=== PATIENT | male | born 1955 | race Caucasian/White ===

== ENCOUNTER 2020-12-18 07:26 | Outpatient (CLI) | payer OTHER ==
[2020-12-18] VITALS (15 sets, daily range): BP systolic 91–109; BP diastolic 64–73
[~2020-12-18] VITALS: Ht 172.7 cm; Wt 90.9 kg
[2020-12-18] MEDS ORDERED: IODIXANOL 320 MG/ML 100 ML VIAL. ONE (07:35)
[2020-12-18] MEDS ORDERED: LIDOCAINE 1% PF 2 ML VIAL. ONE (07:36)
[2020-12-18] MEDS ORDERED: POTA20TA4 PO (07:42)
[2020-12-18] MEDS ORDERED: METF10007 PO (07:42)
[2020-12-18] MEDS ORDERED: METO-239 PO (07:42)
[2020-12-18] MEDS ORDERED: LISI10TA16 PO (07:42)
[2020-12-18] MEDS ORDERED: FURO80TA3 PO (07:42)
[2020-12-18] MEDS ORDERED: ASPI-630 PO (07:42)
[2020-12-18 08:05] LABS: HEMATOCRIT 40.7 % (39.0-53.0); HEMOGLOBIN 13.9 g/dL (13.0-17.5); RED BLOOD COUNT 4.2 x10^6/uL (4.30-5.70); RED CELL DISTRIBUTION WIDTH 13.8 % (11.5-14.5); WHITE BLOOD COUNT 6.7 x10^3/uL (4.0-11.0)
[2020-12-18 08:10] LABS: CREATININE 0.9 mg/dL (0.7-1.3); GFR 85.2; POTASSIUM 4.5 mmol/L (3.5-5.1)
[2020-12-18] MEDS ORDERED: fentaNYL PF VIAL 100 MCG/2 ML VIAL ONE (08:57)
[2020-12-18] MEDS ORDERED: MIDAZOLAM HCL/PF 2 MG/2 ML VIAL. ONE (08:57)
[2020-12-18] MEDS ORDERED: NITROGLYCERIN 200 MCG/2 ML SYRINGE FOR CATH/VASC LAB. ONE (08:58)
[2020-12-18] MEDS ORDERED: VERAPAMIL 5 MG/2 ML VIAL. ONE (08:58)
[2020-12-18] MEDS ORDERED: HEPARIN for IV BOLUS 10,000 UNIT/10 ML VIAL. ONE (08:58)
[2020-12-18] MEDS ORDERED: BIVALIRUDIN 250 MG VIAL. IV ONE ×2 (09:18→09:30)
[2020-12-18] MEDS ORDERED: LIDOCAINE 1% PF 2 ML VIAL. INJ ONE (09:30)
[2020-12-18] MEDS ORDERED: MIDAZOLAM HCL/PF 2 MG/2 ML VIAL. IV ONE (09:30)
[2020-12-18] MEDS ORDERED: VERAPAMIL 5 MG/2 ML VIAL. IART ONE (09:30)
[2020-12-18] MEDS ORDERED: NITROGLYCERIN 200 MCG/2 ML SYRINGE FOR CATH/VASC LAB. IART ONE (09:30)
[2020-12-18] MEDS ORDERED: HEPARIN for IV BOLUS 10,000 UNIT/10 ML VIAL. IART ONE (09:30)
[2020-12-18] MEDS ORDERED: IODIXANOL 320 MG/ML 100 ML VIAL. IART ONE (09:30)
[2020-12-18] MEDS ORDERED: ASPIRIN 325 MG TABLET ONE (09:41)
[2020-12-18] MEDS ORDERED: CLOPIDOGREL BISULFATE 75 MG TABLET ONE (09:41)
[2020-12-18] MEDS ORDERED: IV NORMAL SALINE 500ML BAG 250 ML IV ONE (09:45)
[2020-12-18] MEDS ORDERED: NITROGLYCERIN 200 MCG/2 ML SYRINGE FOR CATH/VASC LAB. ICAR ONE (09:45)
[2020-12-18] MEDS ORDERED: ASPIRIN 325 MG TABLET PO ONE (09:45)
[2020-12-18] MEDS ORDERED: CLOPIDOGREL BISULFATE 75 MG TABLET PO ONE (09:45)
--- NOTE | 2020-12-18 09:46 | PDOC ---
MODERATE SEDATION ASSESSMENT RISKS/ALTERNATIVES Risks/Alternatives Risks and alternatives of this type of sedation and procedure discussed with: RISK/ALTERNATIVES: Patient H & P ON CHART H & P H & P on chart and reviewed for co-morbid conditions and appropriate labs. H&P ON CHART: Yes STATUS PREG STATUS ASSESSED: N/A MEDS/ALLERGIES REVIEWED Meds/Allergies Reviewed Medications and Allergies including time and route of recently administered narcotics and sedatives. MEDS/ALLERGIES REVIEWED: Yes ASA RATING ASA RATING: III AIRWAY ASSESSMENT Airway Assessment Airway patency, oral function limitations, presence of caps, crowns, dentures, partials, and ability to extend neck assessed. AIRWAY ASSESSMENT: Yes MALLAMPATI SCORE MALLAMPATI SCORE: II PRE-SEDATION ASSESSMENT PRE-SEDATION ASSESSMENT: Yes JAN HULL MD Dec 18, 2020 09:46
[2020-12-18] MEDS ORDERED: NITROGLYCERIN SUBLINGUAL 0.4 MG BOTTLE OF 25. SL PRN (10:00)
[2020-12-18] MEDS ORDERED: IV 1/2 NORMAL SALINE 1,000 ML IV SCH (10:00)
[2020-12-18] MEDS ORDERED: ACETAMINOPHEN 325 MG TABLET. PO PRN (10:00)
[2020-12-18] MEDS ORDERED: ASPI325T8 PO (11:25)
[2020-12-18] MEDS ORDERED: ATOR40TA59 PO (11:25)
[2020-12-18] MEDS ORDERED: CLOP75TA PO (11:25)
[2020-12-18] MEDS ORDERED: ACET325T9 PO (11:25)
--- NOTE | 2020-12-18 13:13 | NUR ---
Discharge Note: BREANNE DANIEL Discharge instructions and discharge home medications reviewed with Patient and a copy given. All questions have been answered and understanding verbalized. The following instructions and handouts were given: radial site care and adult moderate sedation Discontinued lines and drains: Peripheral IV intact. Patient discharged to Home or Self Care withSpousevia Wheelchair
[2020-12-18] MEDS ORDERED: ATORVASTATIN CALCIUM 20 MG TABLET PO SCH (21:00)
[2020-12-19] MEDS ORDERED: CLOPIDOGREL BISULFATE 75 MG TABLET PO SCH (08:00)
[2020-12-19] MEDS ORDERED: ASPIRIN ENTERIC COATED 325 MG TABLET.DR. PO SCH (08:00)
--- NOTE | 2020-12-22 10:19 | CARD ---
Technologist: Janet Quintanilla, RT(R) Nurse: Joanne Cox RN Procedure(s) performed: 1. Left heart catheterization, selective coronary angiography via right transradial approach 2. Successful PCI/drug-eluting stent placement to the obtuse marginal branch of left circumflex artery Sedation Time: 43 Minutes Dose: 101 Gycm2 Contrast: 142 mL Visipaque 320 Fluoro Time: 9.2 Minutes INDICATION The indication(s) include : 65-year-old male who recently presented with acute on chronic systolic heart failure was found to have severe left ventricle systolic dysfunction with EF 20 to 25% on 2D echocardiogram. He presented today for cardiac catheterization to rule out ischemic etiology.. [facility] Clinical Frailty Scale [facility] Clinical Frailty Scale: Mildly Frail Heart Failure Heart Failure: Yes If Yes, Newly Diagnosed: No If Yes, HF Type: Systolic If Yes, NYHA Class: Class II CASE TECHNIQUE IV conscious sedation was used throughout procedure with appropriate monitoring and was performed in the presence of a registered nurse who was an independent trained observer other than the physician performing the procedure. During this case, Fluoroscopy and low osmolar contrast were used for imaging. Specimen(s) Removed: No Estimated Blood loss: 15 cc's. PROCEDURE NARRATIVE After explaining the risks, benefits and alternative options, informed consent was obtained from patient. Patient was brought to the cardiac Facilities Planner and right wrist was prepped and draped in the usual fashion after confirming a positive modified Lance's test. Arterial access was obtained in the right radial artery and a 6 Turkmen sheath was inserted. 6 Turkmen Cuong catheter was used to perform selective angiography of the left and right coronary arteries. 6 Turkmen pigtail catheter was used to obtain LVEDP and transaortic gradients. Left ventriculography was not performed secondary to elevated EDP. The following findings were noted: FINDINGS 1. Hemodynamics: Elevated left ventricular end-diastolic pressure of 36 mmHg consistent with acute on chronic systolic heart failure. Pullback gradient across the aortic valve of 34 mmHg consistent with moderate aortic stenosis. 2. Coronary angiography: a. The left main coronary artery arose from the left sinus of Valsalva, gave rise to the left anterior descending, ramus intermedius and left circumflex arteries and did not show any significant stenosis. b. The left anterior descending artery did not show any significant stenosis. c. The ramus intermedius artery did not show any significant stenosis. d. The left circumflex artery showed 90% stenosis involving the proximal segment of the second obtuse marginal branch. e. The right coronary artery was a dominant vessel arising from the right sinus of Valsalva that did not show any significant stenosis. INTERVENTION The left main coronary artery was engaged with a 6 Turkmen XB 3.5 guide catheter. The stenosis in the proximal segment of the second obtuse marginal branch was crossed with a 0.014 inch [employer] guidewire. This was predilated with a 2.5 x 12 mm [employer] Emerge balloon following which this was successfully treated with a 2.5 x 12 mm [employer] Promus Elite drug- eluting stent. Follow-up angiography showed resolution of the stenosis to 0% with ELDA-3 distal flow. Patient tolerated procedure well. Hemostasis was achieved using TR band. There were no immediate complications. ELDA Flow ELDA Flow (Pre-Intervention): ELDA-2 ELDA Flow (Post-Intervention): ELDA-3 Conclusion 1. Single-vessel coronary artery disease 2. Successful PCI/drug-eluting stent placement to the second obtuse marginal branch of left circumflex artery 3. Elevated left ventricular end-diastolic pressure consistent with acute on chronic systolic heart failure 4. Moderate aortic stenosis Recommendations 1. Aspirin 325 mg daily for 1 month followed by 81 mg daily. 2. Plavix 75 mg daily 3. Cardiovascular risk factor modification 4. Optimization of medical therapy for acute on chronic systolic heart failure/cardiomyopathy and repeat 2D echo in 3 months to evaluate need for AICD implantation Signed by : Ryan Funk, Electronically Approved : 12/18/2020 10:04:16 -- [email or web address]
== END 2020-12-18 13:16 | disposition home or self-care (01) ==
LOC: CCL 07:26
PROVIDERS: ATTEND Internal Medicine Cardiovascular Disease
DX: I11.0 Hypertensive heart disease with heart failure (principal); I50.23 Acute on chronic systolic (congestive) heart failure; I42.9 Cardiomyopathy, unspecified; I25.10 Atherosclerotic heart disease of native coronary artery without angina pectoris; E11.9 Type 2 diabetes mellitus without complications; F17.210 Nicotine dependence, cigarettes, uncomplicated; Z79.82 Long term (current) use of aspirin; Z79.84 Long term (current) use of oral hypoglycemic drugs; Z79.899 Other long term (current) drug therapy; Z98.890 Other specified postprocedural states; Z72.89 Other problems related to lifestyle
CPT/HCPCS: 36415; 80048; 85027; 92928; 93458; 99152; 99153; C1725; C1769; C1874; C1887; C1894; J0583; J1644; J2250; J3490; J7040; Q9967

== ENCOUNTER 2021-08-20 09:08 | Inpatient (IN) | payer OTHER ==
[~2021-08-20] VITALS: Ht 172.7 cm; Wt 83.0 kg
[~2021-08-20 09:08] MED LIST: ACET325T9 PO; ASPI-630 PO; ASPI325T8 PO; ATOR40TA59 PO; CLOP75TA PO; FURO80TA3 PO; LISI10TA16 PO; METF10007 PO; METO-239 PO; POTA-121 PO
--- NOTE | 2021-08-20 09:28 | PHYS DOC ---
Past Medical History Past Medical History: CHF, Diabetes-Type II, Hypertension Past Surgical History: No Surgical History Smoking Status: Current Every Day Smoker Alcohol Use: None Drug Use: None General Adult EDM: Chief Complaint: FATIGUE HPI: HPI: Patient is a 65 year old Male who presents to the ED from Dr. Caceres's office c/o fatigue worsening over the past 3 days. Pt went to his PCP this morning and was sent down here due to hypotension and jaundice. Pt states over the last several months he had increasing fatigue and decreased appetite. He states that he has lost 30 pounds in the last month. Pt also reports constipation. He denies n/v/d, fever, or chills. Denies trauma. Review of Systems: Review of Systems: Constitutional: Denies fever or chills; reports fatigue and weight loss Eyes: Denies redness or eye pain HENT: Denies nasal congestion or sore throat Respiratory: Denies cough or shortness of breath Cardiovascular: Denies chest pain or palpitations GI: Denies abdominal pain, nausea, or vomiting; reports constipation : Denies dysuria or hematuria Musculoskeletal: Denies back pain or joint pain Integument: Denies rash or skin lesions Neurologic: Denies headache, focal weakness or sensory changes Complete systems were reviewed and found to be within normal limits, except as documented in this note. Heart Score: C/O Chest Pain: N/A Allergies: Allergies: Allergies Coded Allergies Type Severity Reaction Last Updated Verified No Known Drug Allergies 12/18/20 No Physical Exam: PE: Constitutional: NAD, ill-appearing HENT: Normocephalic, atraumatic Eyes: PERRL, EOMI, scleral icterus, no discharge Neck: Normal range of motion, no tenderness, supple Lungs & Thorax: No respiratory distress, equal chest rise and fall Abdomen: Soft, no tenderness, distended, with possible fluid wave Skin: Jaundice, warm, dry, no erythema, no rash Back: No tenderness, no CVA tenderness Extremities: No tenderness, ROM intact, no edema Neurologic: Alert and oriented X 3, normal motor function, normal sensory function, no focal deficits noted Psychologic: Affect normal, judgment normal EKG: EKG: @0921 NSR at 83bpm, NO ST elevation, QRS 120ms, QT/QTc 442/526ms Radiology/Procedures: Radiology/Procedures: PROCEDURE: CT CHEST ABDOMEN PELVIS WO CT CHEST_ABDOMEN_ AND PELVIS WITHOUT CONTRAST History: Dyspnea with exertion, jaundice. Comparison: None. Technique: Noncontrast CT of the chest, abdomen and pelvis. Findings: Moderate right, small left pleural effusion. Mild emphysematous change. Bilateral lower lobe groundglass opacities likely representing compressive atelectasis however superimposed infection is not excluded. Central airways are patent. There are heavy aortic valvular calcifications and moderate coronary artery calcifications. Mild calcification of the aortic arch. No aortic aneurysm. Pulmonary arteries are within normal limits. No mediastinal or hilar adenopathy. The thyroid and esophagus are unremarkable. The liver is unremarkable. There are punctate calcifications of the anterior dependent gallbladder wall, likely adherent stones. No biliary ductal dilatation. Mild fatty atrophy of the pancreas. Calcified granulomas spleen. The adrenal glands are unremarkable. No nephrolithiasis or hydronephrosis. The stomach is decompressed. The small bowel is unremarkable. Normal appendix. No focal colonic wall thickening or pericolonic inflammatory changes. The bladder is decompressed with diffuse wall thickening. Enlarged prostate gland. There is mild ascites with perihepatic, perisplenic and fluid in the paracolic gutters and pelvis. Atherosclerotic calcification of the aorta and iliac arteries. No abdominal pelvic adenopathy. Mild anasarca. Fat-containing umbilical hernia. Flowing osteophytes in the thoracic spine. Mild lumbar spine degenerative changes. Impression: 1. Moderate right and small left pleural effusion. Mild intra-abdominal ascites and mild anasarca. 2. Groundglass opacities in the lower lobes adjacent to pleural effusions likely representing compressive atelectasis. Superimposed infection or edema are not excluded. 3. Heavy calcifications of the aortic valve. Consider echo for further evaluation. 4. Enlarged prostate gland. Exam. Diffuse bladder wall thickening likely due to underdistention. ------ Exposure: One or more of the following individualized dose reduction techniques were utilized for this examination: 1. Automated exposure control 2. Adjustment of the mA and/or kV according to patient size 3. Use of iterative reconstruction technique. Electronically signed by: Giuliano Thornton MD (08/20/2021 11:29 AM) [id number] Course & Med Decision Making: Course & Med Decision Making Pertinent Labs and Imaging studies reviewed. (See chart for details) Pt is a 65 year old male who presents from Dr. Caceres's office with fatigue and weight loss. Patient also noted to have jaundice with concerns for malignancy and/or liver failure. Patient given IVF that were stopped when BNP was received. Pt received ~400mls Labs obtained and posted to chart. LFTs elevated including Tbili. Lipase WNL. Lactic acidosis noted. Hypokalemia addressed. CT chest/abd/pelvis without acute process. Patient continued to have hypotension. Central lined therefore placed. Patient requiring admission for further evaluation and treatment. Discussed with (hospitalist) who is in agreement with admission. Discussed findings and plan with patient, who acknowledges understanding and agreement. Dragon Disclaimer: Dragon Disclaimer: This electronic medical record was generated, in whole or in part, using a voice recognition dictation system. Departure Departure Impression: Primary Impression: Hyperbilirubinemia Additional Impressions: Acute renal failure Qualified Codes: N17.9 - Acute kidney failure, unspecified Hypokalemia Lactic acidosis Hypotension Qualified Codes: I95.9 - Hypotension, unspecified Disposition: ADMITTED INPATIENT Admitting Physician: OVI RobertSutton) Condition: GUARDED Referrals: HERNÁN CACERES MD (PCP) Central Line Central Line : Central Line Lumen: triple Central Line Procedure: sterile drapes applied, sterile dressing applied Central Line Postion: internal jugular (R) Anesthesia: Lidocaine cc's of anesthesia: 3 Complications: none Central Line Post Position: sutured, good blood return, position confirmed w/ CXR Progress Written consent obtained. Time out performed. Hand hygiene utilized. Sterile attire donned. Wound cleaned with ChloraPrep. Sterile drape applied. Bedside ultrasound utilized with visualization of hypoechoic, compressible, non- pulsatile structure consistent for right internal jugular vein. Anesthesia obtained via a 25-gauge hypodermic needle with (3) mL's of lidocaine 1% without epinephrine. Triple lumen catheter placed via Seldinger technique. Catheter sutures in placed. Patient tolerated procedure well and without difficulty. Sterile dressing placed. Critical Care Time Critical care time was 30 minutes which includes time at bedside, spent in discussion of patient's care with specialists and/or family members, with interpretation of laboratory and/or radiological studies and is exclusive of procedures. RAYNA BROWNING DO Aug 20, 2021 09:28
[2021-08-20 09:58] LABS: BASO % 0 % (0-3); EOS % 0 % (0-3); HEMATOCRIT 37.8 % (39.0-53.0); HEMOGLOBIN 12.9 g/dL (13.0-17.5); LYMPH # 0.7 x10^3/uL (1.0-4.8); LYMPH % 12 % (24-48); MEAN CORPUSCULAR HEMOGLOBIN 34 pg (25-35); MEAN CORPUSCULAR HGB CONC 34 g/dL (31-37); MEAN CORPUSCULAR VOLUME 99 fL (79-100); MONO # 0.5 x10^3/uL (0.0-1.1); MONO % 8 % (0-9); NEUT # 5.1 x10^3/uL (1.8-7.7); NEUT % 80 % (31-73); PLATELET COUNT 134 x10^3/uL (140-400); RED BLOOD COUNT 3.81 x10^6/uL (4.30-5.70); RED CELL DISTRIBUTION WIDTH 16.9 % (11.5-14.5); WHITE BLOOD COUNT 6.4 x10^3/uL (4.0-11.0)
[2021-08-20] MEDS ORDERED: IV NORMAL SALINE 1000ML BAG 1,000 ML IV ONE (10:00)
[2021-08-20 10:09] LABS: PROTHROMBIN TIME PATIENT 17.8 SEC (11.7-14.0)
[2021-08-20] MEDS ORDERED: IOHEXOL 350 MG/ML 100 ML VIAL. IV ONE (10:15)
[2021-08-20 10:22] LABS: ALBUMIN 3.4 g/dL (3.4-5.0); CALCIUM 8.6 mg/dL (8.5-10.1); CREATININE 2.4 mg/dL (0.7-1.3); GFR 27.5; TOTAL BILIRUBIN 6.1 mg/dL (0.2-1.0); TOTAL PROTEIN 6.7 g/dL (6.4-8.2)
[2021-08-20 10:29] LABS: POTASSIUM 2.6 mmol/L (3.5-5.1)
[2021-08-20] MEDS ORDERED: CONTRAST GIVEN. MC PRN (10:30)
[2021-08-20] MEDS ORDERED: POTASSIUM CHLORIDE 20 MEQ TABLET.ER. PO ONE (10:45)
[2021-08-20 10:46] LABS: INFLUENZA A PATIENT NEGATIVE (NEGATIVE); INFLUENZA B PATIENT NEGATIVE (NEGATIVE)
--- NOTE | 2021-08-20 11:31 | RAD ---
CT CHEST_ABDOMEN_ AND PELVIS WITHOUT CONTRAST History: Dyspnea with exertion, jaundice. Comparison: None. Technique: Noncontrast CT of the chest, abdomen and pelvis. Findings: Moderate right, small left pleural effusion. Mild emphysematous change. Bilateral lower lobe groundgl ass opacities likely representing compressive atelectasis however superimposed infection is not exclu ded. Central airways are patent. There are heavy aortic valvular calcifications and moderate coronary artery calcifications. Mild calc ification of the aortic arch. No aortic aneurysm. Pulmonary arteries are within normal limits. No med iastinal or hilar adenopathy. The thyroid and esophagus are unremarkable. The liver is unremarkable. There are punctate calcifications of the anterior dependent gallbladder wa ll, likely adherent stones. No biliary ductal dilatation. Mild fatty atrophy of the pancreas. Calcifi ed granulomas spleen. The adrenal glands are unremarkable. No nephrolithiasis or hydronephrosis. The stomach is decompressed. The small bowel is unremarkable. Normal appendix. No focal colonic wall thickening or pericolonic inflammatory changes. The bladder is decompressed with diffuse wall thickening. Enlarged prostate gland. There is mild ascites with perihepatic, perisplenic and fluid in the paracolic gutters and pelvis. At herosclerotic calcification of the aorta and iliac arteries. No abdominal pelvic adenopathy. Mild anasarca. Fat-containing umbilical hernia. Flowing osteophytes in the thoracic spine. Mild lumba r spine degenerative changes. Impression: 1. Moderate right and small left pleural effusion. Mild intra-abdominal ascites and mild anasarca. 2. Groundglass opacities in the lower lobes adjacent to pleural effusions likely representing compre ssive atelectasis. Superimposed infection or edema are not excluded. 3. Heavy calcifications of the aortic valve. Consider echo for further evaluation. 4. Enlarged prostate gland. Exam. Diffuse bladder wall thickening likely due to underdistention. ------ Exposure: One or more of the following individualized dose reduction techniques were utilized for thi s examination: 1. Automated exposure control 2. Adjustment of the mA and/or kV according to patient size 3. Use of iterative reconstruction technique. Electronically signed by: Giuliano Thornton MD (08/20/2021 11:29 AM) [id number]
[2021-08-20] MEDS ORDERED: ALBUMIN HUMAN 5% 500 ML IV ONE (13:15)
[2021-08-20] MEDS ORDERED: fentaNYL PF VIAL 100 MCG/2 ML VIAL IVP PRN (13:30)
[2021-08-20] MEDS ORDERED: ONDANSETRON PF 4 MG/2 ML VIAL. IVP PRN ×2 (13:30→21:15)
[2021-08-20] MEDS ORDERED: DEXTROSE 50% 25 GM / 50ML DISP.SYRIN. IV PRN ×2 (13:45→20:45)
[2021-08-20] MEDS ORDERED: IV DEXTROSE 5% 250 ML BAG. IV PRN ×2 (13:45→20:45)
--- NOTE | 2021-08-20 14:13 | PDOC2 ---
GI CONSULT Date of Service: DATE: 08/20/21 TIME: 13:45 Reason For Consult: hyperbilirubinemia HPI: HPI: 65 y/o male seen in ER, previously d/w ER physician. Ill x 1 month with "all of it" - shortness of breath, weakness, swelling, decreased appetite, and yellowing of skin. Denies reflux/heartburn, n/v, abdominal pain, diarrhea, hematochezia, or melena. Has lost some weight. can't really say if he has trouble swallowing - he'll have to think about it but maybe sometimes. Typically no issues w/ diarrhea or constipation but has been "slow" recently - gave him something OTC that helped. No previous EGD or colonoscopy. Denies GB, liver, pancreas, and PUD history. No h/o Hepatitis. Used to drink heavily but quit 8-9 months ago. No NSAIDs. H/o CAD w/ stent (11/2020) - summary list includes ASA and Plavix and he thinks he takes these. present to supplement some history but says she is a heart patient and has had strokes so she remembers some things but not others. "I know he takes a lot of pills." The patient says he's going to roll out of here like a truck if the beeping doesn't stop. PMH: PMH: CAD w/ stent, CHF, HTN, , DM FH: Family History: No pertinent hx Social History: Smoke: <1 pack per day ALCOHOL: other (heavy in past, sober 8-9 months) Drugs: None ROS: GEN: Denies fevers, chills, sweats HEENT: Denies blurred vision, sore throat CV: Denies chest pain RESP: +SOA +cough GI: Per HPI : Denies hematuria, dysuria ENDO: +weight loss NEURO: Denies confusion, dizziness MSK: +weakness SKIN: +jaundice Vitals: Vitals: Vital Signs Date Time Temp Pulse Resp B/P (MAP) Pulse Ox O2 Delivery O2 Flow Rate FiO2 08/20/21 13:34 86 16 08/20/21 13:05 99 08/20/21 09:23 97.4 96/54 (68) Room Air 97.4 Labs: Labs: Laboratory Tests Test 08/20/21 09:20 08/20/21 10:24 White Blood Count 6.4 x10^3/uL (4.0-11.0) Red Blood Count 3.81 x10^6/uL (4.30-5.70) Hemoglobin 12.9 g/dL (13.0-17.5) Hematocrit 37.8 % (39.0-53.0) Mean Corpuscular Volume 99 fL (79-100) Mean Corpuscular Hemoglobin 34 pg (25-35) Mean Corpuscular Hemoglobin Concent 34 g/dL (31-37) Red Cell Distribution Width 16.9 % (11.5-14.5) Platelet Count 134 x10^3/uL (140-400) Neutrophils (%) (Auto) 80 % (31-73) Lymphocytes (%) (Auto) 12 % (24-48) Monocytes (%) (Auto) 8 % (0-9) Eosinophils (%) (Auto) 0 % (0-3) Basophils (%) (Auto) 0 % (0-3) Neutrophils # (Auto) 5.1 x10^3/uL (1.8-7.7) Lymphocytes # (Auto) 0.7 x10^3/uL (1.0-4.8) Monocytes # (Auto) 0.5 x10^3/uL (0.0-1.1) Eosinophils # (Auto) 0.0 x10^3/uL (0.0-0.7) Basophils # (Auto) 0.0 x10^3/uL (0.0-0.2) Prothrombin Time 17.8 SEC (11.7-14.0) Prothromb Time International Ratio 1.5 (0.8-1.1) Activated Partial Thromboplast Time 30 SEC (24-38) Sodium Level 129 mmol/L (136-145) Potassium Level 2.6 mmol/L (3.5-5.1) Chloride Level 84 mmol/L (98-107) Carbon Dioxide Level 30 mmol/L (21-32) Anion Gap 15 (6-14) Blood Urea Nitrogen 61 mg/dL (8-26) Creatinine 2.4 mg/dL (0.7-1.3) Estimated GFR (Cockcroft-Gault) 27.5 BUN/Creatinine Ratio 25 (6-20) Glucose Level 180 mg/dL (70-99) Lactic Acid Level 5.4 mmol/L (0.4-2.0) Calcium Level 8.6 mg/dL (8.5-10.1) Magnesium Level 2.3 mg/dL (1.8-2.4) Total Bilirubin 6.1 mg/dL (0.2-1.0) Aspartate Amino Transf (AST/SGOT) 380 U/L (15-37) Alanine Aminotransferase (ALT/SGPT) 588 U/L (16-63) Alkaline Phosphatase 119 U/L (46-116) Ammonia 17 mcmol/L (11-34) Creatine Kinase 357 U/L (39-308) Creatine Kinase MB (Mass) 2.0 ng/mL (0.0-3.6) Creatine Kinase MB Relative Index 0.6 % (0-4) Troponin I High Sensitivity 76 ng/L (4-75) EP-Lfn-M-Type Natriuretic Peptide 05785 pg/mL (0-124) Total Protein 6.7 g/dL (6.4-8.2) Albumin 3.4 g/dL (3.4-5.0) Albumin/Globulin Ratio 1.0 (1.0-1.7) Lipase 109 U/L (73-393) Ethyl Alcohol Level < 10 mg/dL (0-10) Influenza Type A Antigen Negative (NEGATIVE) Influenza Type B Antigen Negative (NEGATIVE) SARS-CoV-2 Antigen (Rapid) Negative (NEGATIVE) Allergies: Coded Allergies: No Known Drug Allergies (Unverified , 08/20/21) Medications: Current Medications Medications (Trade) Dose Ordered Sig/Laron Route PRN Reason Start Time Stop Time Status Last Admin Dose Admin Sodium Chloride 1,000 ml @ 1,000 mls/hr 1X ONCE IV 08/20/21 10:00 08/20/21 10:59 DC 08/20/21 10:00 Info (CONTRAST GIVEN -- Rx MONITORING) 1 each PRN DAILY PRN MC SEE COMMENTS 08/20/21 10:30 08/22/21 10:29 08/20/21 11:21 Potassium Chloride (Klor-Con) 40 meq 1X ONCE PO 08/20/21 10:45 08/20/21 10:46 DC 08/20/21 11:20 Imaging: Imaging: C/A/P CT 08/20 Findings: Moderate right, small left pleural effusion. Mild emphysematous change. Bilateral lower lobe groundglass opacities likely representing compressive atelectasis however superimposed infection is not excluded. Central airways are patent. There are heavy aortic valvular calcifications and moderate coronary artery calcifications. Mild calcification of the aortic arch. No aortic aneurysm. Pulmonary arteries are within normal limits. No mediastinal or hilar adenopathy. The thyroid and esophagus are unremarkable. The liver is unremarkable. There are punctate calcifications of the anterior dependent gallbladder wall, likely adherent stones. No biliary ductal dilatation. Mild fatty atrophy of the pancreas. Calcified granulomas spleen. The adrenal glands are unremarkable. No nephrolithiasis or hydronephrosis. The stomach is decompressed. The small bowel is unremarkable. Normal appendix. No focal colonic wall thickening or pericolonic inflammatory changes. The bladder is decompressed with diffuse wall thickening. Enlarged prostate gland. There is mild ascites with perihepatic, perisplenic and fluid in the paracolic gutters and pelvis. Atherosclerotic calcification of the aorta and iliac arteries. No abdominal pelvic adenopathy. Mild anasarca. Fat-containing umbilical hernia. Flowing osteophytes in the thoracic spine. Mild lumbar spine degenerative changes. Impression: 1. Moderate right and small left pleural effusion. Mild intra-abdominal ascites and mild anasarca. 2. Groundglass opacities in the lower lobes adjacent to pleural effusions likely representing compressive atelectasis. Superimposed infection or edema are not excluded. 3. Heavy calcifications of the aortic valve. Consider echo for further evaluation. 4. Enlarged prostate gland. Exam. Diffuse bladder wall thickening likely due to underdistention. PE: GEN: NAD HEENT: Atraumatic, PERRL LUNGS: diminished anteriorly HEART: RR +murm ABD: NABS, RUQ discomfort ("just tickles"), umb hernia EXTREMITY: BLE pitting edema SKIN: +tattoos +jaundice NEURO/PSYCH: A & O 3, not overly forthcoming A/P: A/P: Weakness, SOA, abdominal distention, LE swelling Thrombocytopenia, coagulopathy, abnormal LFTs - unremarkable liver on CT w/ mild ascites and anasarca CHF, hyponatremia, hypokalemia, JIMY, mildly elevated CK, lactic acidosis CRC screen - none ?cholelithiasis - possibly on CT Rapid COVID negative CAD on Plavix and ASA H/o heavy alcohol use - none for 8-9 months -- ?mostly related to heart failure - does have alcohol history. Address cardiac and renal issues. Check abd US/doppler for further liver eval/PV check. Check Hepatitis panel for completeness considering tattoos. GILBERT UNGER Aug 20, 2021 14:12
--- NOTE | 2021-08-20 16:18 | RAD ---
US ABDOMEN LIMITED, US LIMITED ABDOMINAL DOPPLER History: Jaundice. Evaluate liver and portal vein. Comparison: CT abdomen pelvis 08/20/2021. Technique: Sonographic examination of the right upper quadrant of the abdomen. Findings: Pancreas: Poorly visualized due to overlying bowel gas. Liver: The liver measures 18.5 cm. Liver echotexture is minimally increased in echogenicity. No foc al hepatic lesions. Portal vein Doppler: There is hepatopedal flow in the main portal vein which measures 1.1 cm diameter , peak systolic velocity 12 cm/s the left and right portal vein are patent with hepatopedal flow. Gallbladder: Dependently layering material in the gallbladder consistent with sludge. No wall thicken ing or pericholecystic fluid.. Bile ducts: The common duct measures 4 mm. Right kidney: 11.7 cm length. No mass or hydronephrosis. Aorta/IVC: Visualized portions are unremarkable. Other: Moderate right pleural effusion and small perihepatic ascites.. Impression: 1. Mildly increased hepatic echogenicity can be seen in mild steatosis. Patent hepatopedal flow with in the portal veins. 2. Gallbladder sludge without evidence for acute cholecystitis. No biliary ductal dilatation. 3. Moderate right pleural effusion and small perihepatic ascites. Electronically signed by: Giuliano Thornton MD (08/20/2021 4:15 PM) [id number]
--- NOTE | 2021-08-20 16:36 | RAD ---
XR CHEST 1V Clinical History: Reason: Line placement / Spl. Instructions: / History: Technique: AP view of the chest was obtained at 08/20/2021 4:24 PM. Comparison: None. Findings: The heart is normal in size. The pulmonary vessels appear somewhat cephalized and congested and there is reticular opacities throughout the lungs. The pleural margins are clear. Right jugular line has t ip directed downward in the high SVC. Impression: 1. Right jugular line adequately positioned. No pneumothorax. 2. Interstitial infiltrates could be CHF or atypical pneumonia. Electronically signed by: Shiv Marquez III, MD (08/20/2021 4:33 PM) [facility]
[2021-08-20] MEDS ORDERED: INSULIN LISPRO 300 UNITS/3 ML VIAL. SQ SCH (17:00)
[2021-08-20 17:37] VITALS: BP 91/49
[2021-08-20 19:00] VITALS: BP 93/58
[2021-08-20 20:00] VITALS: BP 85/59
--- NOTE | 2021-08-20 20:36 | PDOC1 ---
History and Physical Date of Admission Date of Admission DATE: 08/20/21 TIME: 20:16 Identification/Chief Complaint Chief Complaint Abnormal labs Source Source: Patient History of Present Illness History of Present Illness Patient is a 65-year-old male with past medical history systolic CHF, presents to the ED at the behest of his PCP due to abnormal lab work. Patient is not much of a historian. Patient states he has been feeling some weakness for the past 2 days. He notes associated increased abdominal distention, yellowing of his skin, and swelling of his legs. He has not been seen by a physician for quite some time, we do not have any much in the way of prior records at this facility. Labs on admission show hemoglobin 12.9, hematocrit 37.8, platelets 134, INR 1.5, sodium 129, potassium 2.6, BUN 61, creatinine 2.5, CBG 180, T bili 6.1, AST 380, ALT 388, alkaline phosphatase 119, troponin 76, BNP 23,307. Patient does admit to some inconsistent use of his home Lasix. CT chest/abdomen/pelvis showed moderate right and small left pleural effusion, mild intra-abdominal ascites and mild anasarca. Abdominal ultrasound showed mildly increased hepatic echogenicity that can be seen in mild steatosis, moderate right pleural effusion and small perihepatic ascites. He denies any shortness of breath or chest pain. Patient was admitted for further medical management. Past Medical History Past Medical History Systolic CHF, CAD with stents Past Surgical History Past Surgical History Cardiac stent Family History Family History Reviewed with patient but denies significant family history Social History Smoke: <1 pack per day ALCOHOL: other (heavy in past, sober 8-9 months) Drugs: None Current Problem List Problem List Problems Medical Problems: (1) Acute renal failure Status: Acute (2) Hyperbilirubinemia Status: Acute (3) Hypokalemia Status: Acute (4) Hypotension Status: Acute (5) Lactic acidosis Status: Acute Current Medications Current Medications Current Medications Sodium Chloride 1,000 ml @ 1,000 mls/hr 1X ONCE IV Last administered on 08/20/21at 10:00; Start 08/20/21 at 10:00; Stop 08/20/21 at 10:59; Status DC Iohexol (Omnipaque 350 Mg/ml) 100 ml 1X ONCE IV ; Start 08/20/21 at 10:15; Stop 08/20/21 at 10:23; Status DC Info (CONTRAST GIVEN -- Rx MONITORING) 1 each PRN DAILY PRN MC SEE COMMENTS Last administered on 08/20/21at 11:21; Start 08/20/21 at 10:30; Stop 08/22/21 at 10:29 Potassium Chloride (Klor-Con) 40 meq 1X ONCE PO Last administered on 08/20/21at 11:20; Start 08/20/21 at 10:45; Stop 08/20/21 at 10:46; Status DC Albumin Human 500 ml @ 125 mls/hr 1X ONCE IV Last administered on 08/20/21at 14:53; Start 08/20/21 at 13:15; Stop 08/20/21 at 17:14; Status DC Ondansetron HCl (Zofran) 4 mg PRN Q8HRS PRN IVP NAUSEA/VOMITING; Start 08/20/21 at 13:30; Stop 08/21/21 at 13:29 Fentanyl Citrate (Fentanyl 2ml Vial) 25 mcg PRN Q2HR PRN IVP PAIN; Start 08/20/21 at 13:30 Insulin Human Lispro (HumaLOG) 0-5 UNITS TIDWMEALS SQ ; Start 08/20/21 at 17:00 Dextrose (Dextrose 50%-Water Syringe) 12.5 gm PRN Q15MIN PRN IV SEE COMMENTS; Start 08/20/21 at 13:45 Dextrose (Iv Dextrose 5%) 250 ml PRN Q15MIN PRN IV SEE COMMENTS; Start 08/20/21 at 13:45 Norepinephrine Bitartrate 8 mg/ Dextrose 258 ml @ 15.132 mls/ hr CONT PRN IV PER PROTOCOL; Start 08/20/21 at 18:45 Active Scripts Active Reported Aspirin 325 Mg Tablet 325 Mg PO DAILY Atorvastatin Calcium 40 Mg Tablet 1 Tab PO QHS Tylenol (Acetaminophen) 325 Mg Tablet 650 Mg PO PRN Q6HRS PRN Clopidogrel (Clopidogrel Bisulfate) 75 Mg Tablet 1 Tab PO DAILY Klor-Con M20 (Potassium Chloride) 20 Meq Tab.er.prt 20 Meq PO DAILY Metformin Hcl 1,000 Mg Tablet 1,000 Mg PO DAILYWBKFT RESUME METFORMIN ON MONDAY MORNING- 12/21/2020. Furosemide 80 Mg Tablet 1 Tab PO DAILY Lisinopril 10 Mg Tablet 1 Tab PO DAILY Metoprolol Succinate ( Xl ) (Metoprolol Succinate) 25 Mg Tab.er.24h 1 Tab PO DAILY Allergies Allergies: Coded Allergies: No Known Drug Allergies (Unverified , 08/20/21) ROS Review of System GENERAL: Weakness. No history of weight change or fevers. SKIN: Yellowing of skin. No bruising, hair changes or rashes. EYES: No blurred, double or loss of vision. NOSE AND THROAT: No history of nosebleeds, hoarseness or sore throat. HEART: Denies chest pain, denies palpitations. LUNGS: Denies cough, hemoptysis, wheezing or shortness of breath. GASTROINTESTINAL: Abdominal distention. Denies nausea, vomiting, abdominal pain. GENITOURINARY: Denies dysuria, frequency, urgency, hematuria. NEUROLOGIC: Denies history of numbness, tingling, tremor or weakness. PSYCHIATRIC: Denies anxiety, denies depression. ENDOCRINE: No history of heat or cold intolerance, polyuria or polydipsia. EXTREMITIES: Swelling of bilateral lower extremities. Denies muscle weakness, joint pain, pain on walking or stiffness. Physical Exam Physical Exam General: Alert, Oriented X3, No acute distress HEENT: PERRLA, EOMI Lungs: Bibasilar rales, Normal air movement Heart: RRR, no murmurs Cardiovascular: S1, S2 Abdomen: Abdomen appears distended, normal bowel sounds, No tenderness Extremities: 3+ bilateral lower extremity edema Skin: Skin appears jaundiced. No rashes, No significant lesion Neuro: Normal speech, Normal tone, Sensation intact Psych/Mental Status: Mental status NL, Mood NL Vitals Vitals Vital Signs Date Time Temp Pulse Resp B/P (MAP) Pulse Ox O2 Delivery O2 Flow Rate FiO2 08/20/21 18:45 Room Air 08/20/21 17:37 94.3 88 20 91/49 (63) 92 94.3 Labs Labs Laboratory Tests Test 08/20/21 09:20 08/20/21 10:24 08/20/21 18:05 White Blood Count 6.4 x10^3/uL (4.0-11.0) Red Blood Count 3.81 x10^6/uL (4.30-5.70) Hemoglobin 12.9 g/dL (13.0-17.5) Hematocrit 37.8 % (39.0-53.0) Mean Corpuscular Volume 99 fL (79-100) Mean Corpuscular Hemoglobin 34 pg (25-35) Mean Corpuscular Hemoglobin Concent 34 g/dL (31-37) Red Cell Distribution Width 16.9 % (11.5-14.5) Platelet Count 134 x10^3/uL (140-400) Neutrophils (%) (Auto) 80 % (31-73) Lymphocytes (%) (Auto) 12 % (24-48) Monocytes (%) (Auto) 8 % (0-9) Eosinophils (%) (Auto) 0 % (0-3) Basophils (%) (Auto) 0 % (0-3) Neutrophils # (Auto) 5.1 x10^3/uL (1.8-7.7) Lymphocytes # (Auto) 0.7 x10^3/uL (1.0-4.8) Monocytes # (Auto) 0.5 x10^3/uL (0.0-1.1) Eosinophils # (Auto) 0.0 x10^3/uL (0.0-0.7) Basophils # (Auto) 0.0 x10^3/uL (0.0-0.2) Prothrombin Time 17.8 SEC (11.7-14.0) Prothromb Time International Ratio 1.5 (0.8-1.1) Activated Partial Thromboplast Time 30 SEC (24-38) Sodium Level 129 mmol/L (136-145) Potassium Level 2.6 mmol/L (3.5-5.1) Chloride Level 84 mmol/L (98-107) Carbon Dioxide Level 30 mmol/L (21-32) Anion Gap 15 (6-14) Blood Urea Nitrogen 61 mg/dL (8-26) Creatinine 2.4 mg/dL (0.7-1.3) Estimated GFR (Cockcroft-Gault) 27.5 BUN/Creatinine Ratio 25 (6-20) Glucose Level 180 mg/dL (70-99) Lactic Acid Level 5.4 mmol/L (0.4-2.0) Calcium Level 8.6 mg/dL (8.5-10.1) Magnesium Level 2.3 mg/dL (1.8-2.4) Iron Level 85 ug/dL (65-175) Total Iron Binding Capacity 419 ug/dL (250-450) Iron Saturation 20 % (15-34) Total Bilirubin 6.1 mg/dL (0.2-1.0) Aspartate Amino Transf (AST/SGOT) 380 U/L (15-37) Alanine Aminotransferase (ALT/SGPT) 588 U/L (16-63) Alkaline Phosphatase 119 U/L (46-116) Ammonia 17 mcmol/L (11-34) Creatine Kinase 357 U/L (39-308) Creatine Kinase MB (Mass) 2.0 ng/mL (0.0-3.6) Creatine Kinase MB Relative Index 0.6 % (0-4) Troponin I High Sensitivity 70 ng/L (4-75) JL-Lcd-H-Type Natriuretic Peptide 31320 pg/mL (0-124) Total Protein 6.7 g/dL (6.4-8.2) Albumin 3.4 g/dL (3.4-5.0) Albumin/Globulin Ratio 1.0 (1.0-1.7) Lipase 109 U/L (73-393) Ethyl Alcohol Level < 10 mg/dL (0-10) Influenza Type A Antigen Negative (NEGATIVE) Influenza Type B Antigen Negative (NEGATIVE) SARS-CoV-2 Antigen (Rapid) Negative (NEGATIVE) Glucose (Fingerstick) 158 mg/dL (70-99) Laboratory Tests Test 08/20/21 09:20 08/20/21 10:24 08/20/21 18:05 White Blood Count 6.4 x10^3/uL (4.0-11.0) Red Blood Count 3.81 x10^6/uL (4.30-5.70) Hemoglobin 12.9 g/dL (13.0-17.5) Hematocrit 37.8 % (39.0-53.0) Mean Corpuscular Volume 99 fL (79-100) Mean Corpuscular Hemoglobin 34 pg (25-35) Mean Corpuscular Hemoglobin Concent 34 g/dL (31-37) Red Cell Distribution Width 16.9 % (11.5-14.5) Platelet Count 134 x10^3/uL (140-400) Neutrophils (%) (Auto) 80 % (31-73) Lymphocytes (%) (Auto) 12 % (24-48) Monocytes (%) (Auto) 8 % (0-9) Eosinophils (%) (Auto) 0 % (0-3) Basophils (%) (Auto) 0 % (0-3) Neutrophils # (Auto) 5.1 x10^3/uL (1.8-7.7) Lymphocytes # (Auto) 0.7 x10^3/uL (1.0-4.8) Monocytes # (Auto) 0.5 x10^3/uL (0.0-1.1) Eosinophils # (Auto) 0.0 x10^3/uL (0.0-0.7) Basophils # (Auto) 0.0 x10^3/uL (0.0-0.2) Prothrombin Time 17.8 SEC (11.7-14.0) Prothromb Time International Ratio 1.5 (0.8-1.1) Activated Partial Thromboplast Time 30 SEC (24-38) Sodium Level 129 mmol/L (136-145) Potassium Level 2.6 mmol/L (3.5-5.1) Chloride Level 84 mmol/L (98-107) Carbon Dioxide Level 30 mmol/L (21-32) Anion Gap 15 (6-14) Blood Urea Nitrogen 61 mg/dL (8-26) Creatinine 2.4 mg/dL (0.7-1.3) Estimated GFR (Cockcroft-Gault) 27.5 BUN/Creatinine Ratio 25 (6-20) Glucose Level 180 mg/dL (70-99) Lactic Acid Level 5.4 mmol/L (0.4-2.0) Calcium Level 8.6 mg/dL (8.5-10.1) Magnesium Level 2.3 mg/dL (1.8-2.4) Iron Level 85 ug/dL (65-175) Total Iron Binding Capacity 419 ug/dL (250-450) Iron Saturation 20 % (15-34) Total Bilirubin 6.1 mg/dL (0.2-1.0) Aspartate Amino Transf (AST/SGOT) 380 U/L (15-37) Alanine Aminotransferase (ALT/SGPT) 588 U/L (16-63) Alkaline Phosphatase 119 U/L (46-116) Ammonia 17 mcmol/L (11-34) Creatine Kinase 357 U/L (39-308) Creatine Kinase MB (Mass) 2.0 ng/mL (0.0-3.6) Creatine Kinase MB Relative Index 0.6 % (0-4) Troponin I High Sensitivity 70 ng/L (4-75) PP-Lqr-J-Type Natriuretic Peptide 35669 pg/mL (0-124) Total Protein 6.7 g/dL (6.4-8.2) Albumin 3.4 g/dL (3.4-5.0) Albumin/Globulin Ratio 1.0 (1.0-1.7) Lipase 109 U/L (73-393) Ethyl Alcohol Level < 10 mg/dL (0-10) Influenza Type A Antigen Negative (NEGATIVE) Influenza Type B Antigen Negative (NEGATIVE) SARS-CoV-2 Antigen (Rapid) Negative (NEGATIVE) Glucose (Fingerstick) 158 mg/dL (70-99) Images Images PATIENT: СЕРГЕЙ DANIEL ACCOUNT: [id number] : 1955 LOCATION: ER AGE: 65 SEX: M EXAM STATUS: REG ER ORD. PHYSICIAN: RAYNA BROWNING DO REASON: Dypnea with exertion, jaundice, PROCEDURE: CT CHEST ABDOMEN PELVIS WO CT CHEST_ABDOMEN_ AND PELVIS WITHOUT CONTRAST History: Dyspnea with exertion, jaundice. Comparison: None. Technique: Noncontrast CT of the chest, abdomen and pelvis. Findings: Moderate right, small left pleural effusion. Mild emphysematous change. Bilateral lower lobe groundglass opacities likely representing compressive atelectasis however superimposed infection is not excluded. Central airways are patent. There are heavy aortic valvular calcifications and moderate coronary artery calcifications. Mild calcification of the aortic arch. No aortic aneurysm. Pu lmonary arteries are within normal limits. No mediastinal or hilar adenopathy. The thyroid and esophagus are unremarkable. The liver is unremarkable. There are punctate calcifications of the anterior dependent gallbladder wall, likely adherent stones. No biliary ductal dilatation. Mild fatty atrophy of the pancreas. Calcified granulomas spleen. The adrenal glands are unremarkable. No nephrolithiasis or hydronephrosis. The stomach is decompressed. The small bowel is unremarkable. Normal appendix. No focal colonic wall thickening or pericolonic inflammatory changes. The bladder is decompressed with diffuse wall thickening. Enlarged prostate gland. There is mild ascites with perihepatic, perisplenic and fluid in the paracolic gutters and pelvis. Atherosclerotic calcification of the aorta and iliac arteries. No abdominal pelvic adenopathy. Mild anasarca. Fat-containing umbilical hernia. Flowing osteophytes in the thoracic spine. Mild lumbar spine degenerative changes. Impression: 1. Moderate right and small left pleural effusion. Mild intra-abdominal ascites and mild anasarca. 2. Groundglass opacities in the lower lobes adjacent to pleural effusions likely representing compressive atelectasis. Superimposed infection or edema are not excluded. 3. Heavy calcifications of the aortic valve. Consider echo for further evaluation. 4. Enlarged prostate gland. Exam. Diffuse bladder wall thickening likely due to underdistention. PATIENT: СЕРГЕЙ DANIEL ACCOUNT: [id number] : 1955 LOCATION: ED HOLD AGE: 65 SEX: M EXAM STATUS: ADM IN ORD. PHYSICIAN: GILBERT UNGER REASON: jaundice, please eval liver and PV PROCEDURE: LIMITED ABDOMINAL DOPPLER US ABDOMEN LIMITED, US LIMITED ABDOMINAL DOPPLER History: Jaundice. Evaluate liver and portal vein. Comparison: CT abdomen pelvis 08/20/2021. Technique: Sonographic examination of the right upper quadrant of the abdomen. Findings: Pancreas: Poorly visualized due to overlying bowel gas. Liver: The liver measures 18.5 cm. Liver echotexture is minimally increased in echogenicity. No focal hepatic lesions. Portal vein Doppler: There is hepatopedal flow in the main portal vein which measures 1.1 cm diameter, peak systolic velocity 12 cm/s the left and right portal vein are patent with hepatopedal flow. Gallbladder: Dependently layering material in the gallbladder consistent with sludge. No wall thickening or pericholecystic fluid.. Bile ducts: The common duct measures 4 mm. Right kidney: 11.7 cm length. No mass or hydronephrosis. Aorta/IVC: Visualized portions are unremarkable. Other: Moderate right pleural effusion and small perihepatic ascites.. Impression: 1. Mildly increased hepatic echogenicity can be seen in mild steatosis. Patent hepatopedal flow within the portal veins. 2. Gallbladder sludge without evidence for acute cholecystitis. No biliary ductal dilatation. 3. Moderate right pleural effusion and small perihepatic ascites. PATIENT: СЕРГЕЙ DANIEL ACCOUNT: [id number] : 1955 LOCATION: ED HOLD AGE: 65 SEX: M EXAM STATUS: ADM IN ORD. PHYSICIAN: SHY BLUNT MD REASON: Line placement PROCEDURE: PORTABLE CHEST 1V XR CHEST 1V Clinical History: Reason: Line placement / Spl. Instructions: / History: Technique: AP view of the chest was obtained at 08/20/2021 4:24 PM. Comparison: None. Findings: The heart is normal in size. The pulmonary vessels appear somewhat cephalized and congested and there is reticular opacities throughout the lungs. The pleural margins are clear. Right jugular line has tip directed downward in the high SVC. Impression: 1. Right jugular line adequately positioned. No pneumothorax. 2. Interstitial infiltrates could be CHF or atypical pneumonia. VTE Prophylaxis Ordered VTE Prophylaxis Devices: No VTE Pharmacological Prophylaxi: Yes Assessment/Plan Assessment/Plan Acute hepatitis Acute on chronic systolic heart failure Cardiorenal syndrome Abdominal distention Transaminitis Hepatic steatosis Thrombocytopenia Lactic acidosis Hypokalemia JIMY due to vasomotor nephropathy Plan: Consult placed to GI Hepatitis profile pending Patient had cardiac cath back in 12/18/2020 that showed elevated left ventricular end-diastolic pressure consistent with acute on chronic systolic heart failure, moderate aortic stenosis. Will place consultation to cardiology due to systolic heart failure Echocardiogram pending Labs back in 12/18/2020 showed BUN 18, creatinine 0.9, with EGFR 85.2. Currently CKD4 based on labs. Will place consult to nephrology for management of CKD 4. Home lisinopril and metformin Sliding scale insulin Replace potassium as needed Daily diuretics Resume home medication FEN - Cardiac diet PPX - Lovenox FULL CODE/patient names his (Fernanda Eason) as surrogate decision-maker Dispo - inpatient for above Justifications for Admission Other Justification SHY BLUNT MD Aug 20, 2021 20:36
[2021-08-20 21:00] VITALS: BP 96/61
[2021-08-20] MEDS: ATORVASTATIN CALCIUM 40 MG TABLET. PO SCH (21:11)
[2021-08-20] MEDS ORDERED: oxyCODONE IR 5 MG TABLET PO PRN (21:15)
[2021-08-20] MEDS ORDERED: ZOLPIDEM 5 MG TABLET. PO PRN (21:15)
[2021-08-20 22:00] VITALS: BP 96/61
[2021-08-20 23:00] VITALS: BP 83/62
[2021-08-21] VITALS (28 sets, daily range): BP systolic 77–101; BP diastolic 43–69
[2021-08-21 05:56] LABS: CALCIUM 8.3 mg/dL (8.5-10.1); CREATININE 2.7 mg/dL (0.7-1.3)
[2021-08-21 06:16] LABS: POTASSIUM 2.9 mmol/L (3.5-5.1)
--- NOTE | 2021-08-21 07:00 | PDOC ---
[facility] PROGRESS NOTE Date of Service DOS: DATE: 08/21/21 TIME: 06:55 Chief Complaint Chief Complaint Weakness Dyspnea Pleural effusion Abdominal distention LE swelling Thrombocytopenia, coagulopathy, abnormal LFTs - unremarkable liver on CT w/ mild ascites and anasarca CHF Hypokalemia Hyponatremia Acute kidney injury Lactic acidosis CAD on Plavix and ASA H/o heavy alcohol use - none for 8-9 months FEN - Cardiac ADA diet PPX - heparin bid FULL CODE Dispo - inpatient ICU cc time 37 minutes History of Present Illness History of Present Illness Patient is a 65-year-old male with past medical history CAD s/p stenting, chronic systolic CHF, presents to the ED at the behest of his PCP due to abnormal lab work. Patient is not much of a historian. Patient states he has been feeling some weakness for the past 2 days prior to arrival in ED. He notes associated increased abdominal distention, yellowing of his skin, and swelling of his legs. He has not been seen by a physician for quite some time, we do not have any much in the way of prior records at this facility. Labs on admission show hemoglobin 12.9, hematocrit 37.8, platelets 134, INR 1.5, sodium 129, potassium 2.6, BUN 61, creatinine 2.5, CBG 180, T bili 6.1, AST 380, ALT 388, alkaline phosphatase 119, troponin 76, BNP 23,307. Patient does admit to some inconsistent use of his home Lasix. CT chest/abdomen/pelvis showed moderate right and small left pleural effusion, mild intra-abdominal ascites and mild anasarca. Abdominal ultrasound showed mildly increased hepatic echogenicity that can be seen in mild steatosis, moderate right pleural effusion and small perihepatic ascites. He denies any shortness of breath or chest pain. Patient was admitted for further medical management. Given fluid challenge with normal saline bolus and albumin and has not made any urine output overnight 08/21: Seen bedside in ICU. Blood pressure 85/43. Levophed ordered central line functional. NA 126, K2.9, BUN 68, CR 2.7. Edematous up to the abdominal wall. Plan to add milrinone and IV Lasix for diuresis offered Hernandez catheter patient says he would not like this this time. CVP. Vitals/I&O Vitals/I&O: Vital Signs Date Time Temp Pulse Resp B/P (MAP) Pulse Ox O2 Delivery O2 Flow Rate FiO2 08/21/21 06:00 87 14 82/54 (63) 99 Room Air 08/21/21 05:00 97.4 97.4 I & O 08/20/21 08/20/21 08/21/21 14:59 22:59 06:59 Intake Total 150 ml 500 ml Output Total 150 ml Balance 0 ml 500 ml Physical Exam General: Alert, Cooperative Heart: Regular rate, Normal S1, Normal S2 Lungs: Crackles Abdomen: Other (Fluid with) Extremities: Other (Bilateral pitting edema) Labs Labs: Laboratory Tests Test 08/20/21 09:20 08/20/21 10:24 08/20/21 14:28 08/20/21 15:00 White Blood Count 6.4 x10^3/uL (4.0-11.0) Red Blood Count 3.81 x10^6/uL (4.30-5.70) Hemoglobin 12.9 g/dL (13.0-17.5) Hematocrit 37.8 % (39.0-53.0) Mean Corpuscular Volume 99 fL (79-100) Mean Corpuscular Hemoglobin 34 pg (25-35) Mean Corpuscular Hemoglobin Concent 34 g/dL (31-37) Red Cell Distribution Width 16.9 % (11.5-14.5) Platelet Count 134 x10^3/uL (140-400) Neutrophils (%) (Auto) 80 % (31-73) Lymphocytes (%) (Auto) 12 % (24-48) Monocytes (%) (Auto) 8 % (0-9) Eosinophils (%) (Auto) 0 % (0-3) Basophils (%) (Auto) 0 % (0-3) Neutrophils # (Auto) 5.1 x10^3/uL (1.8-7.7) Lymphocytes # (Auto) 0.7 x10^3/uL (1.0-4.8) Monocytes # (Auto) 0.5 x10^3/uL (0.0-1.1) Eosinophils # (Auto) 0.0 x10^3/uL (0.0-0.7) Basophils # (Auto) 0.0 x10^3/uL (0.0-0.2) Prothrombin Time 17.8 SEC (11.7-14.0) Prothromb Time International Ratio 1.5 (0.8-1.1) Activated Partial Thromboplast Time 30 SEC (24-38) Sodium Level 129 mmol/L (136-145) Potassium Level 2.6 mmol/L (3.5-5.1) Chloride Level 84 mmol/L (98-107) Carbon Dioxide Level 30 mmol/L (21-32) Anion Gap 15 (6-14) Blood Urea Nitrogen 61 mg/dL (8-26) Creatinine 2.4 mg/dL (0.7-1.3) Estimated GFR (Cockcroft-Gault) 27.5 BUN/Creatinine Ratio 25 (6-20) Glucose Level 180 mg/dL (70-99) Lactic Acid Level 5.4 mmol/L (0.4-2.0) 3.5 mmol/L (0.4-2.0) Calcium Level 8.6 mg/dL (8.5-10.1) Magnesium Level 2.3 mg/dL (1.8-2.4) Iron Level 85 ug/dL (65-175) Total Iron Binding Capacity 419 ug/dL (250-450) Iron Saturation 20 % (15-34) Total Bilirubin 6.1 mg/dL (0.2-1.0) Aspartate Amino Transf (AST/SGOT) 380 U/L (15-37) Alanine Aminotransferase (ALT/SGPT) 588 U/L (16-63) Alkaline Phosphatase 119 U/L (46-116) Ammonia 17 mcmol/L (11-34) Creatine Kinase 357 U/L (39-308) Creatine Kinase MB (Mass) 2.0 ng/mL (0.0-3.6) Creatine Kinase MB Relative Index 0.6 % (0-4) Troponin I High Sensitivity 70 ng/L (4-75) 56 ng/L (4-75) WH-Sco-A-Type Natriuretic Peptide 92990 pg/mL (0-124) Total Protein 6.7 g/dL (6.4-8.2) Albumin 3.4 g/dL (3.4-5.0) Albumin/Globulin Ratio 1.0 (1.0-1.7) Lipase 109 U/L (73-393) Ethyl Alcohol Level < 10 mg/dL (0-10) Influenza Type A Antigen Negative (NEGATIVE) Influenza Type B Antigen Negative (NEGATIVE) SARS-CoV-2 Antigen (Rapid) Negative (NEGATIVE) Test 08/20/21 18:05 08/21/21 05:30 Glucose (Fingerstick) 158 mg/dL (70-99) Sodium Level 126 mmol/L (136-145) Potassium Level 2.9 mmol/L (3.5-5.1) Chloride Level 87 mmol/L (98-107) Carbon Dioxide Level 27 mmol/L (21-32) Anion Gap 12 (6-14) Blood Urea Nitrogen 68 mg/dL (8-26) Creatinine 2.7 mg/dL (0.7-1.3) Estimated GFR (Cockcroft-Gault) 24.0 Glucose Level 134 mg/dL (70-99) Calcium Level 8.3 mg/dL (8.5-10.1) Assessment and Plan Assessmemt and Plan Problems Medical Problems: (1) Acute renal failure Status: Acute (2) Hyperbilirubinemia Status: Acute (3) Hypokalemia Status: Acute (4) Hypotension Status: Acute (5) Lactic acidosis Status: Acute Comment Review of Relevant I have reviewed the following items priyanka (where applicable) has been applied. Medications: Current Medications Medications (Trade) Dose Ordered Sig/Laron Route PRN Reason Start Time Stop Time Status Last Admin Dose Admin Sodium Chloride 1,000 ml @ 1,000 mls/hr 1X ONCE IV 08/20/21 10:00 08/20/21 10:59 DC 08/20/21 10:00 Info (CONTRAST GIVEN -- Rx MONITORING) 1 each PRN DAILY PRN MC SEE COMMENTS 08/20/21 10:30 08/22/21 10:29 08/20/21 11:21 Potassium Chloride (Klor-Con) 40 meq 1X ONCE PO 08/20/21 10:45 08/20/21 10:46 DC 08/20/21 11:20 Albumin Human 500 ml @ 125 mls/hr 1X ONCE IV 08/20/21 13:15 08/20/21 17:14 DC 08/20/21 14:53 Atorvastatin Calcium (Lipitor) 40 mg QHS PO 08/20/21 21:00 08/20/21 21:11 Justifications for Admission Other Justification PAMELA QUILES MD Aug 21, 2021 07:00
[2021-08-21] MEDS: POTASSIUM CHLORIDE 20MEQ 100 ML IV SCH ×2 (07:43→08:49)
[2021-08-21] MEDS ORDERED: MILRINONE 20MG/100ML PREMIX 100 ML IV PRN (07:45)
[2021-08-21] MEDS: INSULIN LISPRO 300 UNITS/3 ML VIAL. SQ SCH ×3 (08:00→17:00)
[2021-08-21] MEDS: POTASSIUM CHLORIDE 20 MEQ TABLET.ER. PO SCH (08:13)
[2021-08-21] MEDS: METOPROLOL SUCC 24HR ER 25 MG TAB.ER.24H. PO SCH (08:14)
[2021-08-21] MEDS: MILRINONE 20MG/100ML PREMIX 100 ML IV PRN (08:41)
[2021-08-21] MEDS: CLOPIDOGREL BISULFATE 75 MG TABLET PO SCH (08:49)
[2021-08-21] MEDS: HEPARIN for SUB-Q USE 5,000 UNIT/ML VIAL. SQ SCH ×2 (08:49→20:53)
[2021-08-21] MEDS ORDERED: FUROSEMIDE 40 MG TABLET. PO SCH (09:00)
[2021-08-21] MEDS ORDERED: ENOXAPARIN 40 MG/0.4 ML SYRINGE. SQ SCH (09:00)
--- NOTE | 2021-08-21 09:28 | PDOC2 ---
CARDIOLOGY CONSULT NOTE DATE OF SERVICE: DATE: 08/21/21 TIME: 09:19 CHIEF COMPLAINT: Fatigue and abnomal labs. HPI: 65 y.o male here for evaluation of abnormal labs at the request of his PCP. He was seen by Dr. Funk in Nov 2020 for cardiomyopathy and treated for single vessel CAD. He was also noted to have moderate aortic stenosis. Today patient states that he has had fatigue for several months and overall poor functional capacity. He denies any chest pain. He does have exertional dyspnea. No syncope. PMHX: Ischemic CMP Dyslipidemia CAD Moderate SOCHX: No alcohol, tob or illicit drug use. FAMHX: NC CURRENT MEDS: Current Medications Medications (Trade) Dose Ordered Sig/Laron Route PRN Reason Start Time Stop Time Status Last Admin Dose Admin Sodium Chloride 1,000 ml @ 1,000 mls/hr 1X ONCE IV 08/20/21 10:00 08/20/21 10:59 DC 08/20/21 10:00 Info (CONTRAST GIVEN -- Rx MONITORING) 1 each PRN DAILY PRN MC SEE COMMENTS 08/20/21 10:30 08/22/21 10:29 08/20/21 11:21 Potassium Chloride (Klor-Con) 40 meq 1X ONCE PO 08/20/21 10:45 08/20/21 10:46 DC 08/20/21 11:20 Albumin Human 500 ml @ 125 mls/hr 1X ONCE IV 08/20/21 13:15 08/20/21 17:14 DC 08/20/21 14:53 Atorvastatin Calcium (Lipitor) 40 mg QHS PO 08/20/21 21:00 08/20/21 21:11 Clopidogrel Bisulfate (Plavix) 75 mg DAILY PO 08/21/21 09:00 08/21/21 08:49 Potassium Chloride/Water 100 ml @ 100 mls/hr Q1H IV 08/21/21 07:00 08/21/21 08:59 DC 08/21/21 08:49 Heparin Sodium (Porcine) (Heparin Sodium) 5,000 unit Q12HR SQ 08/21/21 09:00 08/21/21 08:49 Milrinone Lactate/ Dextrose 100 ml @ 9.113 mls/ hr CONT PRN IV SEE I/O RECORD 08/21/21 08:00 08/21/21 08:41 ALLERGIES: Allergies Coded Allergies Type Severity Reaction Last Updated Verified No Known Drug Allergies 08/20/21 No ROS: Negative for 02/04 systems reviewed unless noted above in HPI PHYSICAL EXAM: Vital Signs/I&O: Vital Signs Date Time Temp Pulse Resp B/P (MAP) Pulse Ox O2 Delivery O2 Flow Rate FiO2 08/21/21 08:07 82 14 88/62 (71) 99 Room Air 08/21/21 07:50 97.8 97.8 I & O 08/20/21 08/20/21 08/21/21 15:00 23:00 07:00 Intake Total 150 ml 500 ml Output Total 150 ml Balance 0 ml 500 ml Physical Exam: GEN.: Mild distress, fatigued. Alert and oriented. HEENT: Head is normocephalic, atraumatic NECK: Supple. LUNGS: Clear to auscultation. HEART: RRR, S1, S2 present. + murmur Peripheral pulses diminished ABDOMEN: Protrubent EXTREMITIES: Without any cyanosis. NEUROLOGIC: Normal speech, normal tone PSYCHIATRIC: Normal affect, normal mood. SKIN: No ulcerations DIAGNOSTIC TESTING: Labs reviewed. Prior cath reviewed. ASSESSMENT: 1. Acute on chronic systolic and diastolic HF 2. Hypotension 3. JIMY 4. Probable moderate aortic stenosis. PLAN: 1. Agree with milrinone infusion and continued diuresis. 2. Will obtain repeat echo and determine degree of aortic stenosis. 3. Ultimately, may need repeat RHC if patient does not improve. Supportive care. CCT > 30 minutes. YSABEL OROPEZA MD Aug 21, 2021 09:28
[2021-08-21] MEDS: ASPIRIN 325 MG TABLET PO SCH (09:32)
[2021-08-21] MEDS: FUROSEMIDE 40 MG/4 ML VIAL. IVP SCH ×2 (09:36→17:09)
[2021-08-21] MEDS: NOREPINEPHRINE VIAL 8 MG in IV DEXTROSE 5% 250 ML IV PRN (10:24)
[2021-08-21 11:06] LABS: CALCIUM 8.4 mg/dL (8.5-10.1); CREATININE 2.3 mg/dL (0.7-1.3); GFR 28.9
[2021-08-21 11:54] LABS: ALBUMIN 3.1 g/dL (3.4-5.0); DIRECT BILIRUBIN 3.7 mg/dL (0.0-0.2); TOTAL BILIRUBIN 5.6 mg/dL (0.2-1.0); TOTAL PROTEIN 6.1 g/dL (6.4-8.2)
[2021-08-21] MEDS ORDERED: ALBUMIN HUMAN 25% 100 ML IV ONE (13:30)
--- NOTE | 2021-08-21 13:33 | PDOC2 ---
CONSULT Date of Consult Date of Consult DATE: 08/21/21 TIME: 13:13 Reason for Consult Reason for Consult: JIMY Source Source: Chart review History of Present Illness Reason for Visit: Patient is a 65-year-old male with past medical history systolic CHF, presents to the ED sent by his PCP due to abnormal lab work. Patient is poor historian. Patient states he has been feeling some weakness for the past 2 days. He notes associated increased abdominal distention, yellowing of his skin, and swelling of his legs. He has not been seen by a physician for quite some time. He denies any shortness of breath or chest pain.No reported N/V/D . No urinary complaints History Obtained from Chart Review COVID positive. Currently On IV lasix and started on Milrinone per cardiology . Not much UOP. BP's low, on Levophed . 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) Drugs: None Current Problem List Problem List Problems Medical Problems: (1) Acute renal failure Status: Acute (2) Hyperbilirubinemia Status: Acute (3) Hypokalemia Status: Acute (4) Hypotension Status: Acute (5) Lactic acidosis Status: Acute Current Medications Current Medications Current Medications Sodium Chloride 1,000 ml @ 1,000 mls/hr 1X ONCE IV Last administered on 08/20/21at 10:00; Start 08/20/21 at 10:00; Stop 08/20/21 at 10:59; Status DC Iohexol (Omnipaque 350 Mg/ml) 100 ml 1X ONCE IV ; Start 08/20/21 at 10:15; Stop 08/20/21 at 10:23; Status DC Info (CONTRAST GIVEN -- Rx MONITORING) 1 each PRN DAILY PRN MC SEE COMMENTS Last administered on 08/20/21at 11:21; Start 08/20/21 at 10:30; Stop 08/22/21 at 10:29 Potassium Chloride (Klor-Con) 40 meq 1X ONCE PO Last administered on 08/20/21at 11:20; Start 08/20/21 at 10:45; Stop 08/20/21 at 10:46; Status DC Albumin Human 500 ml @ 125 mls/hr 1X ONCE IV Last administered on 08/20/21at 14:53; Start 08/20/21 at 13:15; Stop 08/20/21 at 17:14; Status DC Ondansetron HCl (Zofran) 4 mg PRN Q8HRS PRN IVP NAUSEA/VOMITING; Start 08/20/21 at 13:30; Stop 08/21/21 at 13:29 Fentanyl Citrate (Fentanyl 2ml Vial) 25 mcg PRN Q2HR PRN IVP PAIN; Start 08/20/21 at 13:30 Insulin Human Lispro (HumaLOG) 0-5 UNITS TIDWMEALS SQ ; Start 08/20/21 at 17:00; Stop 08/20/21 at 20:59; Status DC Dextrose (Dextrose 50%-Water Syringe) 12.5 gm PRN Q15MIN PRN IV SEE COMMENTS; Start 08/20/21 at 13:45; Status Cancel Dextrose (Iv Dextrose 5%) 250 ml PRN Q15MIN PRN IV SEE COMMENTS; Start 08/20/21 at 13:45 Norepinephrine Bitartrate 8 mg/ Dextrose 258 ml @ 15.132 mls/ hr CONT PRN IV PER PROTOCOL Last administered on 08/21/21at 10:24; Start 08/20/21 at 18:45 Aspirin (Alberto Aspirin) 325 mg DAILY PO Last administered on 08/21/21at 09:32; Start 08/21/21 at 09:00 Atorvastatin Calcium (Lipitor) 40 mg QHS PO Last administered on 08/20/21at 21:11; Start 08/20/21 at 21:00 Clopidogrel Bisulfate (Plavix) 75 mg DAILY PO Last administered on 08/21/21at 08:49; Start 08/21/21 at 09:00 Furosemide (Lasix) 80 mg DAILY PO ; Start 08/21/21 at 09:00; Stop 08/21/21 at 07:37; Status DC Metoprolol Succinate (Toprol Xl) 25 mg DAILY PO ; Start 08/21/21 at 09:00 Potassium Chloride (Klor-Con) 20 meq DAILY PO ; Start 08/21/21 at 09:00 Insulin Human Lispro (HumaLOG) 0-7 UNITS TIDWMEALS SQ ; Start 08/21/21 at 08:00 Dextrose (Dextrose 50%-Water Syringe) 12.5 gm PRN Q15MIN PRN IV SEE COMMENTS; Start 08/20/21 at 20:45 Dextrose (Iv Dextrose 5%) 250 ml PRN Q15MIN PRN IV SEE COMMENTS; Start 08/20/21 at 20:45 Ondansetron HCl (Zofran) 4 mg PRN Q6HRS PRN IVP NAUSEA/VOMITING; Start 08/20/21 at 21:15 Zolpidem Tartrate (Ambien) 5 mg PRN QHS PRN PO INSOMNIA, MAY REPEAT IN 1HR; Start 08/20/21 at 21:15 Oxycodone HCl (Roxicodone) 5 mg PRN Q3HRS PRN PO BREAKTHROUGH PAIN; Start 08/20/21 at 21:15 Enoxaparin Sodium (Lovenox 40mg Syringe) 40 mg DAILY SQ ; Start 08/21/21 at 09:00; Stop 08/21/21 at 07:37; Status DC Potassium Chloride/Water 100 ml @ 100 mls/hr Q1H IV Last administered on 08/21/21at 08:49; Start 08/21/21 at 07:00; Stop 08/21/21 at 08:59; Status DC Milrinone Lactate/ Dextrose 100 ml @ 9.113 mls/ hr CONT PRN IV SEE I/O RECORD; Start 08/21/21 at 07:45; Stop 08/21/21 at 07:56; Status DC Furosemide (Lasix) 80 mg [id number] IVP Last administered on 08/21/21at 09:36; Start 08/21/21 at 09:00 Heparin Sodium (Porcine) (Heparin Sodium) 5,000 unit Q12HR SQ Last administered on 08/21/21at 08:49; Start 08/21/21 at 09:00 Milrinone Lactate/ Dextrose 100 ml @ 9.113 mls/ hr CONT PRN IV SEE I/O RECORD Last administered on 08/21/21at 08:41; Start 08/21/21 at 08:00 Active Scripts Active Reported Aspirin 325 Mg Tablet 325 Mg PO DAILY Atorvastatin Calcium 40 Mg Tablet 1 Tab PO QHS Tylenol (Acetaminophen) 325 Mg Tablet 650 Mg PO PRN Q6HRS PRN Clopidogrel (Clopidogrel Bisulfate) 75 Mg Tablet 1 Tab PO DAILY Klor-Con M20 (Potassium Chloride) 20 Meq Tab.er.prt 20 Meq PO DAILY Metformin Hcl 1,000 Mg Tablet 1,000 Mg PO DAILYWBKFT RESUME METFORMIN ON MONDAY MORNING- 12/21/2020. Furosemide 80 Mg Tablet 1 Tab PO DAILY Lisinopril 10 Mg Tablet 1 Tab PO DAILY Metoprolol Succinate ( Xl ) (Metoprolol Succinate) 25 Mg Tab.er.24h 1 Tab PO DAILY Allergies Allergies: Coded Allergies: No Known Drug Allergies (Unverified , 08/20/21) ROS Review of System As per HPI, Limited ROS as poor Historian Physical Exam Physical Exam GEN.: NAD HEENT: Head is normocephalic, atraumatic, on RA NECK: Supple. LUNGS: Clear to auscultation.Non labored HEART: RRR, S1, S2 present. + murmur ABDOMEN: Protrubent, NT , BS + EXTREMITIES: Without any cyanosis.LE edema + NEUROLOGIC: Moving all Extrem PSYCHIATRIC: Poor historian SKIN: No rash Vital Signs Vital Signs Date Time Temp Pulse Resp B/P (MAP) Pulse Ox O2 Delivery O2 Flow Rate FiO2 08/21/21 13:06 82 14 95/54 98 Room Air 08/21/21 07:50 97.8 97.8 Assessment & Plan JIMY- Suspect Vasomotor/Cardiorenal Normal Cr in Nov 2020 , No interval labs . Resp status stable, On RA. Creat trending up , Supportive care, strict I/O. Avoid Nephrotoxins and Overdiuresis . No emergent indication of [employer] currently . If worsening will probably need CRRT Acute on chronic systolic and diastolic HF- Milrinone infusion and diuresis per cardiology Hypotension- On Levophed, just started on Milrinone HypoNatremia - Monitor HypoKalemia replace Probable moderate aortic stenosis. Pleural effusion- Moderate right and small left pleural effusion Abdominal distention- Mild intra-abdominal ascites and mild anasarca. Thrombocytopenia, coagulopathy, abnormal LFTs - unremarkable liver on CT w/ mild ascites and anasarca H/o heavy alcohol use - none for 8-9 months . . Groundglass opacities in the lower lobes adjacent to pleural effusions likely representing compressive atelectasis. Superimposed infection or edema are not excluded. Enlarged prostate gland. Exam. Diffuse bladder wall thickening likely due to underdistention. Labs Labs Laboratory Tests Test 08/20/21 09:20 08/20/21 10:24 08/20/21 14:28 08/20/21 15:00 White Blood Count 6.4 x10^3/uL (4.0-11.0) Red Blood Count 3.81 x10^6/uL (4.30-5.70) Hemoglobin 12.9 g/dL (13.0-17.5) Hematocrit 37.8 % (39.0-53.0) Mean Corpuscular Volume 99 fL (79-100) Mean Corpuscular Hemoglobin 34 pg (25-35) Mean Corpuscular Hemoglobin Concent 34 g/dL (31-37) Red Cell Distribution Width 16.9 % (11.5-14.5) Platelet Count 134 x10^3/uL (140-400) Neutrophils (%) (Auto) 80 % (31-73) Lymphocytes (%) (Auto) 12 % (24-48) Monocytes (%) (Auto) 8 % (0-9) Eosinophils (%) (Auto) 0 % (0-3) Basophils (%) (Auto) 0 % (0-3) Neutrophils # (Auto) 5.1 x10^3/uL (1.8-7.7) Lymphocytes # (Auto) 0.7 x10^3/uL (1.0-4.8) Monocytes # (Auto) 0.5 x10^3/uL (0.0-1.1) Eosinophils # (Auto) 0.0 x10^3/uL (0.0-0.7) Basophils # (Auto) 0.0 x10^3/uL (0.0-0.2) Prothrombin Time 17.8 SEC (11.7-14.0) Prothromb Time International Ratio 1.5 (0.8-1.1) Activated Partial Thromboplast Time 30 SEC (24-38) Sodium Level 129 mmol/L (136-145) Potassium Level 2.6 mmol/L (3.5-5.1) Chloride Level 84 mmol/L (98-107) Carbon Dioxide Level 30 mmol/L (21-32) Anion Gap 15 (6-14) Blood Urea Nitrogen 61 mg/dL (8-26) Creatinine 2.4 mg/dL (0.7-1.3) Estimated GFR (Cockcroft-Gault) 27.5 BUN/Creatinine Ratio 25 (6-20) Glucose Level 180 mg/dL (70-99) Lactic Acid Level 5.4 mmol/L (0.4-2.0) 3.5 mmol/L (0.4-2.0) Calcium Level 8.6 mg/dL (8.5-10.1) Magnesium Level 2.3 mg/dL (1.8-2.4) Iron Level 85 ug/dL (65-175) Total Iron Binding Capacity 419 ug/dL (250-450) Iron Saturation 20 % (15-34) Total Bilirubin 6.1 mg/dL (0.2-1.0) Aspartate Amino Transf (AST/SGOT) 380 U/L (15-37) Alanine Aminotransferase (ALT/SGPT) 588 U/L (16-63) Alkaline Phosphatase 119 U/L (46-116) Ammonia 17 mcmol/L (11-34) Creatine Kinase 357 U/L (39-308) Creatine Kinase MB (Mass) 2.0 ng/mL (0.0-3.6) Creatine Kinase MB Relative Index 0.6 % (0-4) Troponin I High Sensitivity 70 ng/L (4-75) 56 ng/L (4-75) NK-Lvp-T-Type Natriuretic Peptide 80625 pg/mL (0-124) Total Protein 6.7 g/dL (6.4-8.2) Albumin 3.4 g/dL (3.4-5.0) Albumin/Globulin Ratio 1.0 (1.0-1.7) Lipase 109 U/L (73-393) Ethyl Alcohol Level < 10 mg/dL (0-10) Coronavirus (COVID-19)(PCR) Positive (NOT DETECTD) Influenza Type A Antigen Negative (NEGATIVE) Influenza Type B Antigen Negative (NEGATIVE) SARS-CoV-2 Antigen (Rapid) Negative (NEGATIVE) Test 08/20/21 18:00 08/20/21 18:05 08/21/21 05:30 08/21/21 13:00 Sodium Level 127 mmol/L (136-145) 126 mmol/L (136-145) Potassium Level 3.0 mmol/L (3.5-5.1) 2.9 mmol/L (3.5-5.1) Chloride Level 86 mmol/L (98-107) 87 mmol/L (98-107) Carbon Dioxide Level 30 mmol/L (21-32) 27 mmol/L (21-32) Anion Gap 11 (6-14) 12 (6-14) Blood Urea Nitrogen 63 mg/dL (8-26) 68 mg/dL (8-26) Creatinine 2.3 mg/dL (0.7-1.3) 2.7 mg/dL (0.7-1.3) Estimated GFR (Cockcroft-Gault) 28.9 24.0 Glucose Level 148 mg/dL (70-99) 134 mg/dL (70-99) Calcium Level 8.4 mg/dL (8.5-10.1) 8.3 mg/dL (8.5-10.1) Glucose (Fingerstick) 158 mg/dL (70-99) 157 mg/dL (70-99) Total Bilirubin 5.6 mg/dL (0.2-1.0) Direct Bilirubin 3.7 mg/dL (0.0-0.2) Aspartate Amino Transf (AST/SGOT) 531 U/L (15-37) Alanine Aminotransferase (ALT/SGPT) 586 U/L (16-63) Alkaline Phosphatase 97 U/L (46-116) Total Protein 6.1 g/dL (6.4-8.2) Albumin 3.1 g/dL (3.4-5.0) Laboratory Tests Test 08/20/21 14:28 08/20/21 15:00 08/20/21 18:00 08/20/21 18:05 Lactic Acid Level 3.5 mmol/L (0.4-2.0) Troponin I High Sensitivity 56 ng/L (4-75) Sodium Level 127 mmol/L (136-145) Potassium Level 3.0 mmol/L (3.5-5.1) Chloride Level 86 mmol/L (98-107) Carbon Dioxide Level 30 mmol/L (21-32) Anion Gap 11 (6-14) Blood Urea Nitrogen 63 mg/dL (8-26) Creatinine 2.3 mg/dL (0.7-1.3) Estimated GFR (Cockcroft-Gault) 28.9 Glucose Level 148 mg/dL (70-99) Calcium Level 8.4 mg/dL (8.5-10.1) Glucose (Fingerstick) 158 mg/dL (70-99) Test 08/21/21 05:30 08/21/21 13:00 Sodium Level 126 mmol/L (136-145) Potassium Level 2.9 mmol/L (3.5-5.1) Chloride Level 87 mmol/L (98-107) Carbon Dioxide Level 27 mmol/L (21-32) Anion Gap 12 (6-14) Blood Urea Nitrogen 68 mg/dL (8-26) Creatinine 2.7 mg/dL (0.7-1.3) Estimated GFR (Cockcroft-Gault) 24.0 Glucose Level 134 mg/dL (70-99) Calcium Level 8.3 mg/dL (8.5-10.1) Total Bilirubin 5.6 mg/dL (0.2-1.0) Direct Bilirubin 3.7 mg/dL (0.0-0.2) Aspartate Amino Transf (AST/SGOT) 531 U/L (15-37) Alanine Aminotransferase (ALT/SGPT) 586 U/L (16-63) Alkaline Phosphatase 97 U/L (46-116) Total Protein 6.1 g/dL (6.4-8.2) Albumin 3.1 g/dL (3.4-5.0) Glucose (Fingerstick) 157 mg/dL (70-99) Review All relevant outside records, renal labs, imaging studies, telemetry/EKG's were reviewed. Images Images CT CHEST_ABDOMEN_ AND PELVIS WITHOUT CONTRAST History: Dyspnea with exertion, jaundice. Comparison: None. Technique: Noncontrast CT of the chest, abdomen and pelvis. Findings: Moderate right, small left pleural effusion. Mild emphysematous change. Zackery ateral lower lobe groundglass opacities likely representing compressive atelectasis however superimposed infection is not excluded. Central airways are patent. There are heavy aortic valvular calcifications and moderate coronary artery calcifications. Mild calcification of the aortic arch. No aortic aneurysm. Pulmonary arteries are within normal limits. No mediastinal or hilar adenopathy. The thyroid and esophagus are unremarkable. The liver is unremarkable. There are punctate calcifications of the anterior dependent gallbladder wall, likely adherent stones. No biliary ductal dilatation. Mild fatty atrophy of the pancreas. Calcified granulomas spleen. The adrenal glands are unremarkable. No nephrolithiasis or hydronephrosis. The stomach is decompressed. The small bowel is unremarkable. Normal appendix. No focal colonic wall thickening or pericolonic inflammatory changes. The bladder is decompressed with diffuse wall thickening. Enlarged prostate gland. There is mild ascites with perihepatic, perisplenic and fluid in the paracolic gutters and pelvis. Atherosclerotic calcification of the aorta and iliac arteries. No abdominal pelvic adenopathy. Mild anasarca. Fat-containing umbilical hernia. Flowing osteophytes in the thoracic spine. Mild lumbar spine degenerative changes. Impression: 1. Moderate right and small left pleural effusion. Mild intra-abdominal ascites and mild anasarca. 2. Groundglass opacities in the lower lobes adjacent to pleural effusions likely representing compressive atelectasis. Superimposed infection or edema are not excluded. 3. Heavy calcifications of the aortic valve. Consider echo for further evaluation. 4. Enlarged prostate gland. Exam. Diffuse bladder wall thickening likely due to underdistention. US ABDOMEN LIMITED, US LIMITED ABDOMINAL DOPPLER History: Jaundice. Evaluate liver and portal vein. Comparison: CT abdomen pelvis 08/20/2021. Technique: Sonographic examination of the right upper quadrant of the abdomen. Findings: Pancreas: Poorly visualized due to overlying bowel gas. Liver: The liver measures 18.5 cm. Liver echotexture is minimally increased in echogenicity. No focal hepatic lesions. Portal vein Doppler: There is hepatopedal flow in the main portal vein which measures 1.1 cm diameter, peak systolic velocity 12 cm/s the left and right portal vein are patent with hepatopedal flow. Gallbladder: Dependently layering material in the gallbladder consistent with sludge. No wall thickening or pericholecystic fluid.. Bile ducts: The common duct measures 4 mm. Right kidney: 11.7 cm length. No mass or hydronephrosis. Aorta/IVC: Visualized portions are unremarkable. Other: Moderate right pleural effusion and small perihepatic ascites.. Impression: 1. Mildly increased hepatic echogenicity can be seen in mild steatosis. Patent hepatopedal flow within the portal veins. 2. Gallbladder sludge without evidence for acute cholecystitis. No biliary ductal dilatation. 3. Moderate right pleural effusion and small perihepatic ascites. CXR Clinical History: Reason: Line placement / Spl. Instructions: / History: Technique: AP view of the chest was obtained at 08/20/2021 4:24 PM. Comparison: None. Findings: The heart is normal in size. The pulmonary vessels appear somewhat cephalized and congested and there is reticular opacities throughout the lungs. The pleural margins are clear. Right jugular line has tip directed downward in the high SVC. Impression: 1. Right jugular line adequately positioned. No pneumothorax. 2. Interstitial infiltrates could be CHF or atypical pneumonia. ROSA STYLES MD Aug 21, 2021 13:32
[2021-08-21] MEDS: VASOPRESSIN - VASOSTRICT 20 UNIT in IV NORMAL SALINE 100ML 100 ML IV PRN ×2 (14:07→23:23)
--- NOTE | 2021-08-21 14:18 | NUR ---
Dr Francisco updated on patient condition. Regarding no urine output since dose of lasix this morning. Additional orders received. Pt refusing caceres catheter at this time.
--- NOTE | 2021-08-21 15:12 | NUR ---
Pt up to bathroom. Stand by assist while up. Had large stool with urine mixed in. Asked pt again regarding caceres and pt refused. .Pt back in bed resting comfortably.
[2021-08-21] MEDS: ATORVASTATIN CALCIUM 40 MG TABLET. PO SCH (20:52)
[2021-08-22] VITALS (24 sets, daily range): BP systolic 86–100; BP diastolic 49–65
[2021-08-22] MEDS: NOREPINEPHRINE VIAL 8 MG in IV DEXTROSE 5% 250 ML IV PRN (00:57)
[2021-08-22 05:50] LABS: CALCIUM 8.1 mg/dL (8.5-10.1); CREATININE 3.2 mg/dL (0.7-1.3); GFR 19.7; POTASSIUM 3.3 mmol/L (3.5-5.1)
[2021-08-22 05:51] LABS: BARBITURATES NEG (NEG); BENZODIAZEPINES NEG (NEG); CANNABINOIDS NEG (NEG); COCAINE NEG (NEG); METHADONE NEG (NEG); OPIATES NEG (NEG); PHENCYCLIDINE NEG (NEG)
[2021-08-22 05:54] LABS: AMPHETAMINE/METHAMPHETAMINE NEG (NEG)
[2021-08-22 05:55] LABS: ALBUMIN 3.4 g/dL (3.4-5.0); DIRECT BILIRUBIN 4.8 mg/dL (0.0-0.2); TOTAL BILIRUBIN 7.3 mg/dL (0.2-1.0); TOTAL PROTEIN 5.8 g/dL (6.4-8.2)
[2021-08-22 05:59] LABS: PROTHROMBIN TIME PATIENT 24.4 SEC (11.7-14.0)
[2021-08-22 06:10] LABS: HYALINE CASTS, URINE MODERATE /HPF
[2021-08-22 06:11] LABS: AMORPHOUS SEDIMENT,UR PRESENT /HPF; BACTERIA,URINE FEW /HPF (0-FEW); RBC,URINE 0 /HPF (0-2)
[2021-08-22] MEDS ORDERED: IV NORMAL SALINE 1000ML BAG 1,000 ML IV ONE (07:30)
[2021-08-22] MEDS: INSULIN LISPRO 300 UNITS/3 ML VIAL. SQ SCH ×3 (07:49→17:00)
[2021-08-22] MEDS: METOPROLOL SUCC 24HR ER 25 MG TAB.ER.24H. PO SCH (07:52)
[2021-08-22] MEDS: ASPIRIN 325 MG TABLET PO SCH (08:29)
[2021-08-22] MEDS: CLOPIDOGREL BISULFATE 75 MG TABLET PO SCH (08:29)
[2021-08-22] MEDS: HEPARIN for SUB-Q USE 5,000 UNIT/ML VIAL. SQ SCH ×2 (08:30→21:13)
[2021-08-22] MEDS: POTASSIUM CHLORIDE 20 MEQ TABLET.ER. PO SCH (08:56)
--- NOTE | 2021-08-22 09:26 | PDOC ---
[employer] PROGRESS NOTE Date of Service DOS: DATE: 08/22/21 TIME: 09:24 Chief Complaint Chief Complaint Weakness COVID 19 -fully vaccinated and booster. Not hypoxic Lista symptoms seem to be GI related and not even clear if these are COVID symptoms he does have a little bit of a cough Dyspnea Pleural effusion Abdominal distention LE swelling Thrombocytopenia, coagulopathy, abnormal LFTs - unremarkable liver on CT w/ mild ascites and anasarca CHF Hypokalemia Hyponatremia Acute kidney injury Lactic acidosis CAD on Plavix and ASA H/o heavy alcohol use - none for 8-9 months FEN - Cardiac ADA diet PPX - heparin bid FULL CODE Dispo - inpatient ICU cc time 37 minutes History of Present Illness History of Present Illness Patient is a 65-year-old male with past medical history CAD s/p stenting, chronic systolic CHF, presents to the ED at the behest of his PCP due to abnormal lab work. Patient is not much of a historian. Patient states he has been feeling some weakness for the past 2 days prior to arrival in ED. He notes associated increased abdominal distention, yellowing of his skin, and swelling of his legs. He has not been seen by a physician for quite some time, we do not have any much in the way of prior records at this facility. Labs on admission show hemoglobin 12.9, hematocrit 37.8, platelets 134, INR 1.5, sodium 129, potassium 2.6, BUN 61, creatinine 2.5, CBG 180, T bili 6.1, AST 380, ALT 388, alkaline phosphatase 119, troponin 76, BNP 23,307. Patient does admit to some inconsistent use of his home Lasix. CT chest/abdomen/pelvis showed moderate right and small left pleural effusion, mild intra-abdominal ascites and mild anasarca. Abdominal ultrasound showed mildly increased hepatic echogenicity that can be seen in mild steatosis, moderate right pleural effusion and small perihepatic ascites. He denies any shortness of breath or chest pain. Patient was admitted for further medical management. Given fluid challenge with normal saline bolus and albumin and has not made any urine output overnight 08/21: Seen bedside in ICU. Blood pressure 85/43. Levophed ordered central line functional. NA 126, K2.9, BUN 68, CR 2.7. Edematous up to the abdominal wall. Plan to add milrinone and IV Lasix for diuresis offered Hernandez catheter patient says he would not like this this time. CVP 10 08/22: Seen in ICU on milrinone and vasopressin and blood pressure improved. Urine output only 200 cc despite aggressive Lasix regimen. BUN and creatinine increased. PCR for COVID-19 returned positive not requiring oxygen. He does have a slight cough and voluminous diarrhea. Not foul-smelling diarrhea likely this is COVID-related. Will treat. Discussed with cardiology likely with worsening aortic stenosis. Discussed with nephrology and with patient likely will need at least temporary dialysis in the next 24 to 48 hours. We will trial additionally on IV fluids again. Supportive care for COVID-19 continue ICU level care on pressors. Vitals/I&O Vitals/I&O: Vital Signs Date Time Temp Pulse Resp B/P (MAP) Pulse Ox O2 Delivery O2 Flow Rate FiO2 08/22/21 09:02 94 14 100/59 95 Room Air 08/22/21 08:15 97.6 97.6 I & O 08/21/21 08/21/21 08/22/21 15:00 23:00 07:00 Intake Total 870 ml 448 ml 500 ml Output Total 0 ml 200 ml 110 ml Balance 870 ml 248 ml 390 ml Physical Exam General: Alert, Cooperative Heart: Regular rate, Normal S1, Normal S2 Lungs: Crackles Abdomen: Other (Fluid with) Extremities: Other (Bilateral pitting edema) Labs Labs: Laboratory Tests Test 08/21/21 13:00 08/22/21 05:10 08/22/21 05:25 Potassium Level 3.5 mmol/L (3.5-5.1) 3.3 mmol/L (3.5-5.1) Glucose (Fingerstick) 157 mg/dL (70-99) Urine Collection Type Unknown Urine Color (Auto) Yellow Urine Turbidity Hazy Urine pH (Auto) 5.5 (<5.0-8.0) Urine Specific [place] 1.014 (1.000-1.030) Urine Protein (Auto) 100 mg/dL (Negative) Urine Glucose (Auto)(UA) Negative mg/dL (Negative) Urine Ketones (Auto) Negative mg/dL (Negative) Urine Blood (Auto) Moderate (Negative) Urine Nitrite Negative (Negative) Urine Bilirubin (Auto) Negative (Negative) Urine Urobilinogen (Auto) 2 mg/dL (Normal) Urine Leukocyte Esterase (Auto) Negative (Negative) Urine RBC 0 /HPF (0-2) Urine WBC 5-10 /HPF (0-4) Urine Squamous Epithelial Cells Few /LPF Urine Amorphous Sediment Present /HPF Urine Bacteria Few /HPF (0-FEW) Urine Hyaline Casts Moderate /HPF Urine Opiates Screen Neg (NEG) Urine Methadone Screen Neg (NEG) Urine Barbiturates Neg (NEG) Urine Phencyclidine Screen Neg (NEG) Urine Amphetamine/Methamphetamine Neg (NEG) Urine Benzodiazepines Screen Neg (NEG) Urine Cocaine Screen Neg (NEG) Urine Cannabinoids Screen Neg (NEG) Urine Ethyl Alcohol Neg (NEG) Prothrombin Time 24.4 SEC (11.7-14.0) Prothromb Time International Ratio 2.3 (0.8-1.1) Sodium Level 124 mmol/L (136-145) Chloride Level 83 mmol/L (98-107) Carbon Dioxide Level 26 mmol/L (21-32) Anion Gap 15 (6-14) Blood Urea Nitrogen 78 mg/dL (8-26) Creatinine 3.2 mg/dL (0.7-1.3) Estimated GFR (Cockcroft-Gault) 19.7 Glucose Level 173 mg/dL (70-99) Calcium Level 8.1 mg/dL (8.5-10.1) Total Bilirubin 7.3 mg/dL (0.2-1.0) Direct Bilirubin 4.8 mg/dL (0.0-0.2) Aspartate Amino Transf (AST/SGOT) 657 U/L (15-37) Alanine Aminotransferase (ALT/SGPT) 637 U/L (16-63) Alkaline Phosphatase 95 U/L (46-116) Total Protein 5.8 g/dL (6.4-8.2) Albumin 3.4 g/dL (3.4-5.0) Assessment and Plan Assessmemt and Plan Problems Medical Problems: (1) Acute renal failure Status: Acute (2) Hyperbilirubinemia Status: Acute (3) Hypokalemia Status: Acute (4) Hypotension Status: Acute (5) Lactic acidosis Status: Acute Comment Review of Relevant I have reviewed the following items pryianka (where applicable) has been applied. Medications: Current Medications Medications (Trade) Dose Ordered Sig/Laron Route PRN Reason Start Time Stop Time Status Last Admin Dose Admin Vasopressin 20 unit/Sodium Chloride 101 ml @ 9 mls/hr CONT PRN IV SEE I/O RECORD 08/21/21 13:30 08/21/21 23:23 Albumin Human 100 ml @ 100 mls/hr 1X ONCE IV 08/21/21 13:30 08/21/21 14:29 DC 08/21/21 13:58 Sodium Chloride 1,000 ml @ 125 mls/hr 1X ONCE IV 08/22/21 07:30 08/22/21 15:29 08/22/21 07:49 Justifications for Admission Other Justification PAMELA QUILES MD August 22, 2021 09:26
[2021-08-22] MEDS ORDERED: guaiFENesin DM 200MG/20MG 10 ML SYRUP PO PRN (09:30)
[2021-08-22] MEDS: VASOPRESSIN - VASOSTRICT 20 UNIT in IV NORMAL SALINE 100ML 100 ML IV PRN ×2 (11:06→22:00)
--- NOTE | 2021-08-22 11:50 | PDOC ---
DATE OF SERVICE DATE: 08/22/21 TIME: 11:47 SUBJECTIVE ROS Stable, On Room air, denies any SOB. Off Levophed, only on Milrinone currently OBJECTIVE Vital Signs Vital Signs Date Time Temp Pulse Resp B/P (MAP) Pulse Ox O2 Delivery O2 Flow Rate FiO2 08/22/21 11:06 97.5 94 16 98/55 97.5 08/22/21 10:00 94 08/22/21 09:02 Room Air I & 0 Intake and Output 08/22/21 07:00 Intake Total 1818 ml Output Total 310 ml Balance 1508 ml Intake Oral 470 ml IV Total 1278 ml Blood Product IV Normal Saline Flush 70 ml Output Urine Total 310 ml # Voids 1 # Bowel Movements 5 PHYSICAL EXAM Physical Exam GEN.: NAD HEENT: Head is normocephalic, atraumatic, on RA NECK: Supple. LUNGS: Clear to auscultation.Non labored HEART: RRR, S1, S2 present. + murmur ABDOMEN: Protrubent, NT , BS + EXTREMITIES: Without any cyanosis.LE edema + NEUROLOGIC: Moving all Extrem PSYCHIATRIC: Poor historian SKIN: No rash No Caceres DIAGNOSIS/ASSESSMENT Assessment & Plan JIMY- Suspect Vasomotor/Cardiorenal Normal Cr in Nov 2020 , No interval labs . Resp status stable, On RA Worsening renal function ,getting IV Lasix . Doesnt have caceres.. probably will need [employer] if no improvement , Re-evaluate in am , Supportive care, strict I/O. Check Bladder scan prn Avoid Nephrotoxins and Overdiuresis . Acute on chronic systolic and diastolic HF- Milrinone infusion and diuresis per cardiology Hypotension- On Milrinone ' Off Levophed HypoNatremia - suspect cardiac etiology . restrict Free water HypoKalemia replace Probable moderate aortic stenosis. Pleural effusion- Moderate right and small left pleural effusion Abdominal distention- Mild intra-abdominal ascites and mild anasarca. Thrombocytopenia, coagulopathy, abnormal LFTs - unremarkable liver on CT w/ mild ascites and anasarca H/o heavy alcohol use - none for 8-9 months . . Groundglass opacities in the lower lobes adjacent to pleural effusions likely representing compressive atelectasis. Superimposed infection or edema are not excluded. Enlarged prostate gland. Exam. Diffuse bladder wall thickening likely due to underdistention. COMMENT/RELEVANT DATA Meds Current Medications Medications (Trade) Dose Ordered Sig/Laron Start Time Stop Time Status Last Admin Dose Admin Albumin Human 100 ml @ 100 mls/hr 1X ONCE 08/21/21 13:30 08/21/21 14:29 DC 08/21/21 13:58 100 MLS/HR Aspirin (Alberto Aspirin) 325 mg DAILY 08/21/21 09:00 08/22/21 08:29 325 MG Atorvastatin Calcium (Lipitor) 40 mg QHS 08/20/21 21:00 08/21/21 20:52 40 MG Benzonatate (Tessalon Perle) 100 mg [id number] 08/22/21 14:00 Clopidogrel Bisulfate (Plavix) 75 mg DAILY 08/21/21 09:00 08/22/21 08:29 75 MG Dextrose (Dextrose 50%-Water Syringe) 12.5 gm PRN Q15MIN PRN 08/20/21 20:45 Dextrose (Iv Dextrose 5%) 250 ml PRN Q15MIN PRN 08/20/21 20:45 Enoxaparin Sodium (Lovenox 40mg Syringe) 40 mg DAILY 08/21/21 09:00 08/21/21 07:37 DC Fentanyl Citrate (Fentanyl 2ml Vial) 25 mcg PRN Q2HR PRN 08/20/21 13:30 Furosemide (Lasix) 80 mg [id number] 08/21/21 09:00 08/22/21 07:24 DC 08/21/21 17:09 80 MG Guaifenesin (Robitussin Dm) 10 ml PRN Q6HRS PRN 08/22/21 09:30 08/22/21 09:35 10 ML Heparin Sodium (Porcine) (Heparin Sodium) 5,000 unit Q12HR 08/21/21 09:00 08/22/21 08:30 5,000 UNIT Info (CONTRAST GIVEN -- Rx MONITORING) 1 each PRN DAILY PRN 08/20/21 10:30 08/22/21 10:29 DC 08/20/21 11:21 1 EACH Insulin Human Lispro (HumaLOG) 0-7 UNITS TIDWMEALS 08/21/21 08:00 Iohexol (Omnipaque 350 Mg/ml) 100 ml 1X ONCE 08/20/21 10:15 08/20/21 10:23 DC Loperamide HCl (Imodium) 2 mg PRN Q15MIN PRN 08/22/21 09:30 Metoprolol Succinate (Toprol Xl) 25 mg DAILY 08/21/21 09:00 Milrinone Lactate/ Dextrose 100 ml @ 9.113 mls/ hr CONT PRN 08/21/21 08:00 08/21/21 08:41 3.038 MLS/HR Norepinephrine Bitartrate 8 mg/ Dextrose 258 ml @ 15.132 mls/ hr CONT PRN 08/20/21 18:45 08/22/21 00:57 12.105 MLS/HR Ondansetron HCl (Zofran) 4 mg PRN Q6HRS PRN 08/20/21 21:15 Oxycodone HCl (Roxicodone) 5 mg PRN Q3HRS PRN 08/20/21 21:15 Potassium Chloride/Water 100 ml @ 100 mls/hr Q1H 08/21/21 07:00 08/21/21 08:59 DC 08/21/21 08:49 100 MLS/HR Potassium Chloride (Klor-Con) 20 meq DAILY 08/21/21 09:00 Psyllium Hydrophilic Mucilloid (Metamucil Fiber Packet) 1 pkt QHS 08/22/21 21:00 Sodium Chloride 1,000 ml @ 125 mls/hr 1X ONCE 08/22/21 07:30 08/22/21 15:29 08/22/21 07:49 125 MLS/HR Vasopressin 20 unit/Sodium Chloride 101 ml @ 9 mls/hr CONT PRN 08/21/21 13:30 08/22/21 11:06 9 MLS/HR Zolpidem Tartrate (Ambien) 5 mg PRN QHS PRN 08/20/21 21:15 Lab Laboratory Tests Test 08/21/21 13:00 08/22/21 05:10 08/22/21 05:25 Potassium Level 3.5 mmol/L (3.5-5.1) 3.3 mmol/L (3.5-5.1) Glucose (Fingerstick) 157 mg/dL (70-99) Urine Collection Type Unknown Urine Color (Auto) Yellow Urine Turbidity Hazy Urine pH (Auto) 5.5 (<5.0-8.0) Urine Specific Gary 1.014 (1.000-1.030) Urine Protein (Auto) 100 mg/dL (Negative) Urine Glucose (Auto)(UA) Negative mg/dL (Negative) Urine Ketones (Auto) Negative mg/dL (Negative) Urine Blood (Auto) Moderate (Negative) Urine Nitrite Negative (Negative) Urine Bilirubin (Auto) Negative (Negative) Urine Urobilinogen (Auto) 2 mg/dL (Normal) Urine Leukocyte Esterase (Auto) Negative (Negative) Urine RBC 0 /HPF (0-2) Urine WBC 5-10 /HPF (0-4) Urine Squamous Epithelial Cells Few /LPF Urine Amorphous Sediment Present /HPF Urine Bacteria Few /HPF (0-FEW) Urine Hyaline Casts Moderate /HPF Urine Opiates Screen Neg (NEG) Urine Methadone Screen Neg (NEG) Urine Barbiturates Neg (NEG) Urine Phencyclidine Screen Neg (NEG) Urine Amphetamine/Methamphetamine Neg (NEG) Urine Benzodiazepines Screen Neg (NEG) Urine Cocaine Screen Neg (NEG) Urine Cannabinoids Screen Neg (NEG) Urine Ethyl Alcohol Neg (NEG) Prothrombin Time 24.4 SEC (11.7-14.0) Prothromb Time International Ratio 2.3 (0.8-1.1) Sodium Level 124 mmol/L (136-145) Chloride Level 83 mmol/L (98-107) Carbon Dioxide Level 26 mmol/L (21-32) Anion Gap 15 (6-14) Blood Urea Nitrogen 78 mg/dL (8-26) Creatinine 3.2 mg/dL (0.7-1.3) Estimated GFR (Cockcroft-Gault) 19.7 Glucose Level 173 mg/dL (70-99) Calcium Level 8.1 mg/dL (8.5-10.1) Total Bilirubin 7.3 mg/dL (0.2-1.0) Direct Bilirubin 4.8 mg/dL (0.0-0.2) Aspartate Amino Transf (AST/SGOT) 657 U/L (15-37) Alanine Aminotransferase (ALT/SGPT) 637 U/L (16-63) Alkaline Phosphatase 95 U/L (46-116) Total Protein 5.8 g/dL (6.4-8.2) Albumin 3.4 g/dL (3.4-5.0) Results All relevant outside records, renal labs, imaging studies, telemetry/EKG's were reviewed. Justicifation of Admission Dx: Justifications for Admission: Justification of Admission Dx: Yes Acute Renal Failure: 3-Fold Rise in Serum CreROSA Ross MD August 22, 2021 11:50
[2021-08-22] MEDS: MILRINONE 20MG/100ML PREMIX 100 ML IV PRN (12:35)
--- NOTE | 2021-08-22 13:22 | RAD ---
EXAM: XR CHEST 1V 08/22/2021 9:38 AM CLINICAL INDICATION: Worsening CHF COMPARISON: Chest radiograph 08/20/2021 TECHNIQUE: AP upright view of the chest FINDINGS: Unchanged right internal jugular central venous catheter. The heart is normal in size. Susan gs are adequately expanded. There are unchanged bilateral opacities. No pleural effusion or pneumotho rax. IMPRESSION: Unchanged bilateral opacities. Electronically signed by: Samra Holder MD (08/22/2021 1:20 PM) [id number]
[2021-08-22] MEDS: LOPERAMIDE 2 MG CAPSULE PO PRN (14:21)
[2021-08-22] MEDS: BENZONATATE 100 MG CAPSULE. PO SCH ×2 (14:21→21:11)
--- NOTE | 2021-08-22 17:25 | NUR ---
Pt not eating insulin held
--- NOTE | 2021-08-22 18:35 | PDOC ---
CARDIOLOGY PROGRESS NOTE SUBJECTIVE: No new events. Reports feeling poorly. No chest pain. Dyspnea persists. OBJECTIVE: Vital Signs/I&O: Vital Signs Date Time Temp Pulse Resp B/P (MAP) Pulse Ox O2 Delivery O2 Flow Rate FiO2 08/22/21 17:21 93 8 90/57 94 08/22/21 16:11 97.6 97.6 08/22/21 16:09 Room Air I & O 08/21/21 08/21/21 08/22/21 14:59 22:59 06:59 Intake Total 870 ml 448 ml 500 ml Output Total 0 ml 200 ml 110 ml Balance 870 ml 248 ml 390 ml Objective: Weak, emaciated Distant heart sounds Decrease lung sounds 1+ BLE edema CURRENT MEDICATIONS: Milrinone Levophed and vasopressin DIAGNOSTIC TESTING: Labs reviewed - noted worsening multiorgan failure. ASSESSMENT: 1. Acute cardiogenic shock. 2. Covid PNA 3. Multiorgan failure PLAN: 1. Plan for CRRT tmrw per nephrology 2. Continue milrinone. 3. May need IABP but he is unable to lay flat and with covid 19 would like to avoid intubation. Supportive care. Critically ill. Justicifation of Admission Dx: Justifications for Admission: Justification of Admission Dx: Yes Acute Renal Failure: 3-Fold Rise in Serum Crea YSABEL OROPEZA MD August 22, 2021 18:35
[2021-08-22] MEDS ORDERED: PSYLLIUM HUSK (SUGAR FREE) 1 PKT PACKET PO SCH (21:00)
[2021-08-22] MEDS: ATORVASTATIN CALCIUM 40 MG TABLET. PO SCH (21:11)
[2021-08-23] VITALS (25 sets, daily range): BP systolic 74–101; BP diastolic 43–65
--- NOTE | 2021-08-23 06:16 | EKG ---
[facility] [address] [place] [address] Test Date: 2021-08-20 Test Time: 09:21:56 Pat Name: СЕРГЕЙ DANIEL Department: Room: Gender: M Director Of Front Office: : 1955 Requested By: RAYNA BROWNING Order Number: [id number] Reading MD: Measurements Intervals [place] Rate: 83 P: -59 CA: 150 QRS: -19 QRSD: 120 T: 132 QT: 442 QTc: 526 Interpretive Statements SINUS RHYTHM LEFTWARD AXIS LVH WITH REPOLARIZATION ABNORMALITY ABNORMAL ECG RI6.02 No previous ECG available for comparison
[2021-08-23 06:53] LABS: CALCIUM 8.1 mg/dL (8.5-10.1); CREATININE 3.5 mg/dL (0.7-1.3); GFR 17.8; URIC ACID 12.6 mg/dL (3.5-7.2)
[2021-08-23 06:56] LABS: POTASSIUM 2.7 mmol/L (3.5-5.1)
[2021-08-23 07:05] LABS: BASO % 0 % (0-3); EOS % 0 % (0-3); HEMATOCRIT 30.6 % (39.0-53.0); HEMOGLOBIN 10.8 g/dL (13.0-17.5); LYMPH # 0.7 x10^3/uL (1.0-4.8); LYMPH % 8 % (24-48); MEAN CORPUSCULAR HEMOGLOBIN 35 pg (25-35); MEAN CORPUSCULAR HGB CONC 35 g/dL (31-37); MEAN CORPUSCULAR VOLUME 98 fL (79-100); MONO # 0.4 x10^3/uL (0.0-1.1); MONO % 5 % (0-9); NEUT # 7.5 x10^3/uL (1.8-7.7); NEUT % 86 % (31-73); PLATELET COUNT 77 x10^3/uL (140-400); RED BLOOD COUNT 3.13 x10^6/uL (4.30-5.70); RED CELL DISTRIBUTION WIDTH 16.6 % (11.5-14.5); WHITE BLOOD COUNT 8.7 x10^3/uL (4.0-11.0)
[2021-08-23] MEDS: INSULIN LISPRO 300 UNITS/3 ML VIAL. SQ SCH ×3 (08:00→17:00)
[2021-08-23] MEDS: POTASSIUM CHLORIDE 20 MEQ TABLET.ER. PO SCH (09:00)
[2021-08-23] MEDS: METOPROLOL SUCC 24HR ER 25 MG TAB.ER.24H. PO SCH ×2 (09:00→10:23)
[2021-08-23] MEDS: HEPARIN for SUB-Q USE 5,000 UNIT/ML VIAL. SQ SCH (09:00)
--- NOTE | 2021-08-23 09:29 | PDOC ---
NOHEMY VASQUEZ JULIUS 08/23/21 0929: CARDIO Progress Notes Date and Time Date of Service 08/23/21 Time of Evaluation 0930 Subjective Subjective: No Chest Pain, No Palpitations, No Dizziness, Other (feels fatigued. SOA better) Vitals Vitals Vital Signs Date Time Temp Pulse Resp B/P (MAP) Pulse Ox O2 Delivery O2 Flow Rate FiO2 08/23/21 06:00 94 14 94/58 94 08/23/21 04:00 97.5 97.5 08/23/21 04:00 Room Air Weight Weight [ ] Input and Output Intake and Output Intake and Output 08/23/21 06:59 Intake Total 1024 ml Output Total 182 ml Balance 842 ml Intake Oral 610 ml IV Total 414 ml Output Urine Total 182 ml # Bowel Movements 12 Laboratory Labs Laboratory Tests Test 08/23/21 06:20 White Blood Count 8.7 x10^3/uL (4.0-11.0) Red Blood Count 3.13 x10^6/uL (4.30-5.70) Hemoglobin 10.8 g/dL (13.0-17.5) Hematocrit 30.6 % (39.0-53.0) Mean Corpuscular Volume 98 fL (79-100) Mean Corpuscular Hemoglobin 35 pg (25-35) Mean Corpuscular Hemoglobin Concent 35 g/dL (31-37) Red Cell Distribution Width 16.6 % (11.5-14.5) Platelet Count 77 x10^3/uL (140-400) Neutrophils (%) (Auto) 86 % (31-73) Lymphocytes (%) (Auto) 8 % (24-48) Monocytes (%) (Auto) 5 % (0-9) Eosinophils (%) (Auto) 0 % (0-3) Basophils (%) (Auto) 0 % (0-3) Neutrophils # (Auto) 7.5 x10^3/uL (1.8-7.7) Lymphocytes # (Auto) 0.7 x10^3/uL (1.0-4.8) Monocytes # (Auto) 0.4 x10^3/uL (0.0-1.1) Eosinophils # (Auto) 0.0 x10^3/uL (0.0-0.7) Basophils # (Auto) 0.0 x10^3/uL (0.0-0.2) Sodium Level 124 mmol/L (136-145) Potassium Level 2.7 mmol/L (3.5-5.1) Chloride Level 83 mmol/L (98-107) Carbon Dioxide Level 25 mmol/L (21-32) Anion Gap 16 (6-14) Blood Urea Nitrogen 83 mg/dL (8-26) Creatinine 3.5 mg/dL (0.7-1.3) Estimated GFR (Cockcroft-Gault) 17.8 Glucose Level 214 mg/dL (70-99) Uric Acid 12.6 mg/dL (3.5-7.2) Calcium Level 8.1 mg/dL (8.5-10.1) Thyroid Stimulating Hormone (TSH) 0.880 uIU/mL (0.358-3.74) Microbiology Micro Microbiology 08/22/21 Urine Culture - Final, Complete Physical Exam HEENT: Neck Supple W Full Motion Chest: Symmetric LUNGS: Other (diminished bases) Heart: RRR (SR with PVCs), other (distant heart tones ) Abdomen: Soft N/T, Other (ascites ) Extremities: Other (1+ bilateral LE edema, jaundiced ) Neurology: alert, oriented, follow commands Assessment Assessment 1. Acute on chronic systolic CHF 2. Non-ischemic cardiomyopathy, cardiogenic shock; on milrinone. Echo 12/12 with LVEF 20-25% 3. COVID PNA 4. CAD s/p PCI/FELICIA to OM/LCx 12/12 5. , suspected moderate 6. Diabetes, II 7. Hyperlipidemia 8. JIMY; CR ^ 3.5. CRRT to be initiated, although limited supply of solution 9. Hyponatremia, hypokalemia; K replaced 10. Transaminitis, ascites, jaundice- h/o ETOH abuse 11. Thrombocytopenia, coagulopathy Recommendations Continue milrinone Hold heparin, ASA/Plavix therapy with thrombocytopenia, coagulopathy Discontinue statin with transaminitis Pressor support Hold metoprolol as warranted with hypotension Ongoing support Justicifation of Admission Dx: Justifications for Admission: Justification of Admission Dx: Yes Acute Renal Failure: 3-Fold Rise in Serum CreJAN Cunningham MD 08/23/21 1343: CARDIO Progress Notes Assessment Assessment Agree with NIGHT ASSISTANT's assessment and plan. Patient continues to need pressor support Continue milrinone infusion for inotropic support CAD status clinically stable Check 2D echo to evaluate the severity of aortic stenosis and consider referral for TAVR Nephrology planning on initiation of CRRT NOHEMY VASQUEZ APRN August 23, 2021 09:29 JAN HULL MD August 23, 2021 13:43
--- NOTE | 2021-08-23 09:33 | PDOC ---
DATE OF SERVICE DATE: 08/23/21 TIME: 09:32 SUBJECTIVE ROS Stable, On Room air, denies any SOB. Milrinone and Vasopressin, BP low OBJECTIVE Vital Signs Vital Signs Date Time Temp Pulse Resp B/P (MAP) Pulse Ox O2 Delivery O2 Flow Rate FiO2 08/23/21 06:00 94 14 94/58 94 08/23/21 04:00 97.5 97.5 08/23/21 04:00 Room Air I & 0 Intake and Output 08/23/21 07:00 Intake Total 1024 ml Output Total 182 ml Balance 842 ml Intake Oral 610 ml IV Total 414 ml Output Urine Total 182 ml # Bowel Movements 12 PHYSICAL EXAM Physical Exam GEN.: NAD HEENT: Head is normocephalic, atraumatic, on RA NECK: Supple. LUNGS: Clear to auscultation.Non labored HEART: RRR, S1, S2 present. + murmur ABDOMEN: Protrubent, NT , BS + EXTREMITIES: Without any cyanosis.LE edema + NEUROLOGIC: Moving all Extrem PSYCHIATRIC: Poor historian SKIN: No rash Hernandez + DIAGNOSIS/ASSESSMENT Assessment & Plan JIMY- Suspect Vasomotor/Cardiorenal Normal Cr in Nov 2020 , No interval labs . Resp status stable, Worsening renal function . Oligoanuric . Initiate CRRT , discussed with nursing Supportive care, strict I/O. Avoid Nephrotoxins Acute on chronic systolic and diastolic HF- Milrinone infusion s per cardiology COVID 19 Positive- fully vaccinated and booster. Not hypoxic Hypotension- On Milrinone and Vasopressin HypoNatremia - suspect cardiac etiology . restrict Free water . CRRT HypoKalemia replace IV x1 ; monitor on CRRt Probable moderate aortic stenosis. Pleural effusion- Moderate right and small left pleural effusion Abdominal distention- Mild intra-abdominal ascites and mild anasarca. Thrombocytopenia, coagulopathy, abnormal LFTs - unremarkable liver on CT w/ mild ascites and anasarca H/o heavy alcohol use - none for 8-9 months . . Groundglass opacities in the lower lobes adjacent to pleural effusions likely representing compressive atelectasis. Superimposed infection or edema are not excluded. Enlarged prostate gland. Exam. Diffuse bladder wall thickening likely due to underdistention. COMMENT/RELEVANT DATA Meds Current Medications Medications (Trade) Dose Ordered Sig/Laron Start Time Stop Time Status Last Admin Dose Admin Albumin Human 100 ml @ 100 mls/hr 1X ONCE 08/21/21 13:30 08/21/21 14:29 DC 08/21/21 13:58 100 MLS/HR Aspirin (Albreto Aspirin) 325 mg DAILY 08/21/21 09:00 08/22/21 08:29 325 MG Atorvastatin Calcium (Lipitor) 40 mg QHS 08/20/21 21:00 08/22/21 21:11 40 MG Benzonatate (Tessalon Perle) 100 mg [id number] 08/22/21 14:00 08/22/21 21:11 100 MG Clopidogrel Bisulfate (Plavix) 75 mg DAILY 08/21/21 09:00 08/22/21 08:29 75 MG Dextrose (Dextrose 50%-Water Syringe) 12.5 gm PRN Q15MIN PRN 08/20/21 20:45 Dextrose (Iv Dextrose 5%) 250 ml PRN Q15MIN PRN 08/20/21 20:45 Enoxaparin Sodium (Lovenox 40mg Syringe) 40 mg DAILY 08/21/21 09:00 08/21/21 07:37 DC Fentanyl Citrate (Fentanyl 2ml Vial) 25 mcg PRN Q2HR PRN 08/20/21 13:30 Furosemide (Lasix) 80 mg [id number] 08/21/21 09:00 08/22/21 07:24 DC 08/21/21 17:09 80 MG Guaifenesin (Robitussin Dm) 10 ml PRN Q6HRS PRN 08/22/21 09:30 08/22/21 09:35 10 ML Heparin Sodium (Porcine) (Heparin Sodium) 5,000 unit Q12HR 08/21/21 09:00 08/22/21 21:13 5,000 UNIT Info (CONTRAST GIVEN -- Rx MONITORING) 1 each PRN DAILY PRN 08/20/21 10:30 08/22/21 10:29 DC 08/20/21 11:21 1 EACH Insulin Human Lispro (HumaLOG) 0-7 UNITS TIDWMEALS 08/21/21 08:00 Iohexol (Omnipaque 350 Mg/ml) 100 ml 1X ONCE 08/20/21 10:15 08/20/21 10:23 DC Loperamide HCl (Imodium) 2 mg PRN Q15MIN PRN 08/22/21 09:30 08/22/21 14:21 2 MG Metoprolol Succinate (Toprol Xl) 25 mg DAILY 08/21/21 09:00 Milrinone Lactate/ Dextrose 100 ml @ 9.113 mls/ hr CONT PRN 08/21/21 08:00 08/22/21 12:35 3.038 MLS/HR Norepinephrine Bitartrate 8 mg/ Dextrose 258 ml @ 15.132 mls/ hr CONT PRN 08/20/21 18:45 08/22/21 00:57 12.105 MLS/HR Ondansetron HCl (Zofran) 4 mg PRN Q6HRS PRN 08/20/21 21:15 Oxycodone HCl (Roxicodone) 5 mg PRN Q3HRS PRN 08/20/21 21:15 Potassium Chloride/Water 100 ml @ 100 mls/hr Q1H 08/23/21 08:00 08/23/21 09:59 Potassium Chloride (Klor-Con) 20 meq DAILY 08/21/21 09:00 Psyllium Hydrophilic Mucilloid (Metamucil Fiber Packet) 1 pkt QHS 08/22/21 21:00 08/22/21 18:49 DC Sodium Chloride 1,000 ml @ 125 mls/hr 1X ONCE 08/22/21 07:30 08/22/21 15:29 DC 08/22/21 07:49 125 MLS/HR Vasopressin 20 unit/Sodium Chloride 101 ml @ 9 mls/hr CONT PRN 08/21/21 13:30 08/22/21 22:00 9 MLS/HR Zolpidem Tartrate (Ambien) 5 mg PRN QHS PRN 08/20/21 21:15 Lab Laboratory Tests Test 08/23/21 06:20 White Blood Count 8.7 x10^3/uL (4.0-11.0) Red Blood Count 3.13 x10^6/uL (4.30-5.70) Hemoglobin 10.8 g/dL (13.0-17.5) Hematocrit 30.6 % (39.0-53.0) Mean Corpuscular Volume 98 fL (79-100) Mean Corpuscular Hemoglobin 35 pg (25-35) Mean Corpuscular Hemoglobin Concent 35 g/dL (31-37) Red Cell Distribution Width 16.6 % (11.5-14.5) Platelet Count 77 x10^3/uL (140-400) Neutrophils (%) (Auto) 86 % (31-73) Lymphocytes (%) (Auto) 8 % (24-48) Monocytes (%) (Auto) 5 % (0-9) Eosinophils (%) (Auto) 0 % (0-3) Basophils (%) (Auto) 0 % (0-3) Neutrophils # (Auto) 7.5 x10^3/uL (1.8-7.7) Lymphocytes # (Auto) 0.7 x10^3/uL (1.0-4.8) Monocytes # (Auto) 0.4 x10^3/uL (0.0-1.1) Eosinophils # (Auto) 0.0 x10^3/uL (0.0-0.7) Basophils # (Auto) 0.0 x10^3/uL (0.0-0.2) Sodium Level 124 mmol/L (136-145) Potassium Level 2.7 mmol/L (3.5-5.1) Chloride Level 83 mmol/L (98-107) Carbon Dioxide Level 25 mmol/L (21-32) Anion Gap 16 (6-14) Blood Urea Nitrogen 83 mg/dL (8-26) Creatinine 3.5 mg/dL (0.7-1.3) Estimated GFR (Cockcroft-Gault) 17.8 Glucose Level 214 mg/dL (70-99) Uric Acid 12.6 mg/dL (3.5-7.2) Calcium Level 8.1 mg/dL (8.5-10.1) Thyroid Stimulating Hormone (TSH) 0.880 uIU/mL (0.358-3.74) Results All relevant outside records, renal labs, imaging studies, telemetry/EKG's were reviewed. Justicifation of Admission Dx: Justifications for Admission: Justification of Admission Dx: Yes Acute Renal Failure: 3-Fold Rise in Serum ROSA Prabhakar MD August 23, 2021 09:33
[2021-08-23] MEDS ORDERED: LIDOCAINE WITH 8.4% SOD BICARB 3 ML DISP.SYRIN. ONE (09:35)
[2021-08-23] MEDS ORDERED: LIDOCAINE WITH 8.4% SOD BICARB 3 ML DISP.SYRIN. INJ ONE (09:45)
[2021-08-23] MEDS: LOPERAMIDE 2 MG CAPSULE PO PRN (10:19)
[2021-08-23] MEDS: ASPIRIN 325 MG TABLET PO SCH (10:20)
[2021-08-23] MEDS: POTASSIUM CHLORIDE 20MEQ 100 ML IV SCH ×2 (10:20→11:45)
[2021-08-23] MEDS: CLOPIDOGREL BISULFATE 75 MG TABLET PO SCH (10:24)
[2021-08-23] MEDS: BENZONATATE 100 MG CAPSULE. PO SCH ×3 (10:24→21:05)
--- NOTE | 2021-08-23 10:36 | RAD ---
EXAM: XR CHEST 1V 08/23/2021 9:58 AM CLINICAL INDICATION: Catheter placement COMPARISON: Chest radiograph 08/22/2021 TECHNIQUE: AP upright view of the chest FINDINGS: There is a new right IJ dialysis catheter with tip projecting over the superior cavoatrial junction. The pre-existing right IJ central venous catheter is unchanged with tip over the upper sup erior vena cava. The heart is mildly enlarged. There are increased opacities in the right lung. Uncha nged mild opacities in the left lung. Trace right pleural effusion. No pneumothorax. IMPRESSION: 1. New right IJ dialysis catheter in appropriate position. No pneumothorax. 2. Increased opacities in the right lung. Trace right pleural effusion. Electronically signed by: Samra Holder MD (08/23/2021 10:33 AM) [id number]
[2021-08-23] MEDS ORDERED: POTASSIUM CHLORIDE 15 MEQ in DIALYSIS SOLUTION BGK 0/2.5 5,000 ML IV SCH ×2 (11:00→12:00)
--- NOTE | 2021-08-23 11:29 | NUR ---
0800 am insulin held- refused breakfast. 1100 BG 216- cont w diarrhea stools, refuses to eat at this time again. Modified insulin dose per NPO status. Reports 'extreme fatigue", Dozes between procedures and Drs visit. Communication w [facility] pharm ie CRRT bag shortage.Some resolve after initial conversation w enough fluids for a 24H run. (late entry: prior to placement [facility] /teaching on line placement,end goal of Rx permits signing etc covered . Condition update per phone w wifw. Visiting rule clarified per "covid 'visitation.
--- NOTE | 2021-08-23 11:45 | PDOC ---
[employer] PROGRESS NOTE Date of Service DOS: DATE: 08/23/21 TIME: 11:44 Chief Complaint Chief Complaint Weakness COVID 19 -fully vaccinated and booster. Not hypoxic Lista symptoms seem to be GI related and not even clear if these are COVID symptoms he does have a little bit of a cough Dyspnea Pleural effusion Abdominal distention LE swelling Thrombocytopenia, coagulopathy, abnormal LFTs - unremarkable liver on CT w/ mild ascites and anasarca CHF Hypokalemia Hyponatremia Acute kidney injury Lactic acidosis CAD on Plavix and ASA H/o heavy alcohol use - none for 8-9 months History of Present Illness History of Present Illness 08/24/2019 Patient seen and examined He is still on milrinone drip Discussed with RN Discussed with case management Chart reviewed Patient is a 65-year-old male with past medical history CAD s/p stenting, chronic systolic CHF, presents to the ED at the behest of his PCP due to abnormal lab work. Patient is not much of a historian. Patient states he has been feeling some weakness for the past 2 days prior to arrival in ED. He notes associated increased abdominal distention, yellowing of his skin, and swelling of his legs. He has not been seen by a physician for quite some time, we do not have any much in the way of prior records at this facility. Labs on admission show hemoglobin 12.9, hematocrit 37.8, platelets 134, INR 1.5, sodium 129, potassium 2.6, BUN 61, creatinine 2.5, CBG 180, T bili 6.1, AST 380, ALT 388, alkaline phosphatase 119, troponin 76, BNP 23,307. Patient does admit to some inconsistent use of his home Lasix. CT chest/abdomen/pelvis showed moderate right and small left pleural effusion, mild intra-abdominal ascites and mild anasarca. Abdominal ultrasound showed mildly increased hepatic echogenicity that can be seen in mild steatosis, moderate right pleural effusion and small perihepatic ascites. He denies any shortness of breath or chest pain. Patient was admitted for further medical management. Given fluid challenge with normal saline bolus and albumin and has not made any urine output overnight 08/21: Seen bedside in ICU. Blood pressure 85/43. Levophed ordered central line functional. NA 126, K2.9, BUN 68, CR 2.7. Edematous up to the abdominal wall. Plan to add milrinone and IV Lasix for diuresis offered Hernandez catheter patient says he would not like this this time. CVP 10 08/22: Seen in ICU on milrinone and vasopressin and blood pressure improved. U rine output only 200 cc despite aggressive Lasix regimen. BUN and creatinine increased. PCR for COVID-19 returned positive not requiring oxygen. He does have a slight cough and voluminous diarrhea. Not foul-smelling diarrhea likely this is COVID-related. Will treat. Discussed with cardiology likely with worsening aortic stenosis. Discussed with nephrology and with patient likely will need at least temporary dialysis in the next 24 to 48 hours. We will trial additionally on IV fluids again. Supportive care for COVID-19 continue ICU level care on pressors. Vitals/I&O Vitals/I&O: Vital Signs Date Time Temp Pulse Resp B/P (MAP) Pulse Ox O2 Delivery O2 Flow Rate FiO2 08/23/21 10:23 92 80/43 08/23/21 06:00 14 94 08/23/21 04:00 97.5 97.5 08/23/21 04:00 Room Air I & O 08/22/21 08/22/21 08/23/21 15:00 23:00 07:00 Intake Total 320 ml 585 ml 119 ml Output Total 75 ml 42 ml 65 ml Balance 245 ml 543 ml 54 ml Physical Exam General: Alert, Cooperative Heart: Regular rate, Normal S1, Normal S2 Lungs: Crackles Abdomen: Other (Fluid with) Extremities: Other (Bilateral pitting edema) Labs Labs: Laboratory Tests Test 08/23/21 06:20 08/23/21 10:59 White Blood Count 8.7 x10^3/uL (4.0-11.0) Red Blood Count 3.13 x10^6/uL (4.30-5.70) Hemoglobin 10.8 g/dL (13.0-17.5) Hematocrit 30.6 % (39.0-53.0) Mean Corpuscular Volume 98 fL (79-100) Mean Corpuscular Hemoglobin 35 pg (25-35) Mean Corpuscular Hemoglobin Concent 35 g/dL (31-37) Red Cell Distribution Width 16.6 % (11.5-14.5) Platelet Count 77 x10^3/uL (140-400) Neutrophils (%) (Auto) 86 % (31-73) Lymphocytes (%) (Auto) 8 % (24-48) Monocytes (%) (Auto) 5 % (0-9) Eosinophils (%) (Auto) 0 % (0-3) Basophils (%) (Auto) 0 % (0-3) Neutrophils # (Auto) 7.5 x10^3/uL (1.8-7.7) Lymphocytes # (Auto) 0.7 x10^3/uL (1.0-4.8) Monocytes # (Auto) 0.4 x10^3/uL (0.0-1.1) Eosinophils # (Auto) 0.0 x10^3/uL (0.0-0.7) Basophils # (Auto) 0.0 x10^3/uL (0.0-0.2) Sodium Level 124 mmol/L (136-145) Potassium Level 2.7 mmol/L (3.5-5.1) Chloride Level 83 mmol/L (98-107) Carbon Dioxide Level 25 mmol/L (21-32) Anion Gap 16 (6-14) Blood Urea Nitrogen 83 mg/dL (8-26) Creatinine 3.5 mg/dL (0.7-1.3) Estimated GFR (Cockcroft-Gault) 17.8 Glucose Level 214 mg/dL (70-99) Uric Acid 12.6 mg/dL (3.5-7.2) Calcium Level 8.1 mg/dL (8.5-10.1) Magnesium Level 2.5 mg/dL (1.8-2.4) Thyroid Stimulating Hormone (TSH) 0.880 uIU/mL (0.358-3.74) Hepatitis B Surface Antigen Nonreactive (Nonreactive) Hepatitis B Surface Antibody Nonreactive Glucose (Fingerstick) 220 mg/dL (70-99) Assessment and Plan Assessmemt and Plan Problems Medical Problems: (1) Acute renal failure Status: Acute (2) Hyperbilirubinemia Status: Acute (3) Hypokalemia Status: Acute (4) Hypotension Status: Acute (5) Lactic acidosis Status: Acute Acute on chronic congestive heart failure (systolic and diastolic) Weakness COVID 19 -fully vaccinated and booster. Not hypoxic Lista symptoms seem to be GI related and not even clear if these are COVID symptoms he does have a little bit of a cough Dyspnea Pleural effusion Abdominal distention LE swelling Thrombocytopenia, coagulopathy, abnormal LFTs - unremarkable liver on CT w/ mild ascites and anasarca CHF Hypokalemia Hyponatremia Acute kidney injury Lactic acidosis CAD on Plavix and ASA H/o heavy alcohol use - none for 8-9 months Plan Continue milrinone drip IV Lasix ICU monitoring Appreciate cardiology input FEN - Cardiac ADA diet PPX - heparin bid FULL CODE Dispo - inpatient ICU cc time 37 minutes Comment Review of Relevant I have reviewed the following items priyanka (where applicable) has been applied. Medications: Current Medications Medications (Trade) Dose Ordered Sig/Laron Route PRN Reason Start Time Stop Time Status Last Admin Dose Admin Benzonatate (Tessalon Perle) 100 mg [id number] PO 08/22/21 14:00 08/23/21 10:24 Potassium Chloride/Water 100 ml @ 100 mls/hr Q1H IV 08/23/21 08:00 08/23/21 09:59 DC 08/23/21 10:20 Lidocaine HCl (Buffered Lidocaine 1%) 6 ml 1X ONCE INJ 08/23/21 09:45 08/23/21 09:46 DC 08/23/21 09:40 Justifications for Admission Other Justification PAL ALICIA III DO August 23, 2021 11:45
[2021-08-23] MEDS ORDERED: [UNRECOGNIZED DRUG - OTHER] IV SCH (12:00)
[2021-08-23] MEDS ORDERED: CALCIUM CHLORIDE IV SCH ×2 (12:00→21:08)
[2021-08-23] MEDS ORDERED: POTASSIUM CHLORIDE IV SCH ×2 (12:00→21:08)
--- NOTE | 2021-08-23 12:15 | PDOC ---
Date of Service: DATE: 08/23/21 TIME: 11:58 Subjective: Subjective: Doesn't offer much. Objective: Objective: Viral Hep panel negative, iron profile normal. D/w nurse - possible CRRT today, oily stools, on two pressors, poor appetite. Reviewed renal note - shortage of CRRT solution, will not tolerate regular dialysis, may need transfer. Reviewed meds - on Plavix, ASA - has also received Heparin. INR up to 2.3 yesterday. Also getting Imodium. Vital Signs: Vital Signs Date Time Temp Pulse Resp B/P (MAP) Pulse Ox O2 Delivery O2 Flow Rate FiO2 08/23/21 10:23 92 80/43 08/23/21 06:00 14 94 08/23/21 04:00 97.5 97.5 08/23/21 04:00 Room Air Labs: Laboratory Tests Test 08/23/21 06:20 08/23/21 10:59 White Blood Count 8.7 x10^3/uL Red Blood Count 3.13 x10^6/uL Hemoglobin 10.8 g/dL Hematocrit 30.6 % Mean Corpuscular Volume 98 fL Mean Corpuscular Hemoglobin 35 pg Mean Corpuscular Hemoglobin Concent 35 g/dL Red Cell Distribution Width 16.6 % Platelet Count 77 x10^3/uL Neutrophils (%) (Auto) 86 % Lymphocytes (%) (Auto) 8 % Monocytes (%) (Auto) 5 % Eosinophils (%) (Auto) 0 % Basophils (%) (Auto) 0 % Neutrophils # (Auto) 7.5 x10^3/uL Lymphocytes # (Auto) 0.7 x10^3/uL Monocytes # (Auto) 0.4 x10^3/uL Eosinophils # (Auto) 0.0 x10^3/uL Basophils # (Auto) 0.0 x10^3/uL Sodium Level 124 mmol/L Potassium Level 2.7 mmol/L Chloride Level 83 mmol/L Carbon Dioxide Level 25 mmol/L Anion Gap 16 Blood Urea Nitrogen 83 mg/dL Creatinine 3.5 mg/dL Estimated GFR (Cockcroft-Gault) 17.8 Glucose Level 214 mg/dL Uric Acid 12.6 mg/dL Calcium Level 8.1 mg/dL Magnesium Level 2.5 mg/dL Thyroid Stimulating Hormone (TSH) 0.880 uIU/mL Hepatitis B Surface Antigen Nonreactive Hepatitis B Surface Antibody Nonreactive Glucose (Fingerstick) 220 mg/dL CULTURE URINE Final 20,000 CFU/ML NORMAL GENITOURINARY WARD, NOT INDICATIVE OF INFECTION ON 08/23/21 at 0919. Testing performed by [address] [address] recycling director: Deana Knapp MD Imaging: Abd US/Doppler 08/20 Findings: Pancreas: Poorly visualized due to overlying bowel gas. Liver: The liver measures 18.5 cm. Liver echotexture is minimally increased in echogenicity. No focal hepatic lesions. Portal vein Doppler: There is hepatopedal flow in the main portal vein which measures 1.1 cm diameter, peak systolic velocity 12 cm/s the left and right portal vein are patent with hepatopedal flow. Gallbladder: Dependently layering material in the gallbladder consistent with sludge. No wall thickening or pericholecystic fluid.. Bile ducts: The common duct measures 4 mm. Right kidney: 11.7 cm length. No mass or hydronephrosis. Aorta/IVC: Visualized portions are unremarkable. Other: Moderate right pleural effusion and small perihepatic ascites.. Impression: 1. Mildly increased hepatic echogenicity can be seen in mild steatosis. Patent hepatopedal flow within the portal veins. 2. Gallbladder sludge without evidence for acute cholecystitis. No biliary ductal dilatation. 3. Moderate right pleural effusion and small perihepatic ascites. CXR 08/23 IMPRESSION: 1. New right IJ dialysis catheter in appropriate position. No pneumothorax. 2. Increased opacities in the right lung. Trace right pleural effusion. PE: GEN: in COVID isolation - visual exam, nurse present to change LUNGS: room air EXTREMITY: BLE edema NEURO/PSYCH: A & O 3, flat A/P: COVID+ Mild anemia, thrombocytopenia, coagulopathy, abnormal LFTs - has alcohol history, negative viral Hep panel, mild hepatic steatosis on US w/ patent PV and small ascites CHF, cardiomyopathy, , CAD Hyponatremia, hypokalemia, JIMY Diarrhea - C Diff ordered yesterday -- Multiple issues, will review any new GI recs w/ Dr. Soto. Justicifation of Admission Dx: Justifications for Admission: Justification of Admission Dx: Yes Acute Renal Failure: 3-Fold Rise in Serum Crea GILBERT UNGER August 23, 2021 12:15
[2021-08-23] MEDS: CALCIUM CHLORIDE IV SCH ×7 (13:30→23:57)
[2021-08-23] MEDS: [UNRECOGNIZED DRUG - OTHER] IV SCH ×7 (13:30→23:57)
[2021-08-23] MEDS: POTASSIUM CHLORIDE IV SCH ×7 (13:30→23:57)
[2021-08-23] MEDS: VASOPRESSIN - VASOSTRICT 20 UNIT in IV NORMAL SALINE 100ML 100 ML IV PRN (16:20)
--- NOTE | 2021-08-23 17:01 | RAD ---
Procedure: Temporary hemodialysis catheter placement . Sterility: All elements of maximal sterile barrier technique including the use of a cap, mask, steril e gown, sterile gloves, large sterile sheet, appropriate hand hygiene, and 2% chlorhexidine for cutan eous antisepsis (or acceptable alternative antiseptic per current guidelines) were followed for this procedure. Consent: The procedure was explained in its entirety to the patient or the patients designated repres entative by a member of the treatment team, including a discussion of the risks, benefits and commonl y accepted alternatives to the procedure, as well as the expected consequences of no therapy whatsoev er. Discussion of the risks included, but was not limited to, those that are most frequent and thos e that are rare but possibly severe or life-threatening, as well as the possibility of unforeseen com plications. Technique and Findings: Following informed consent, the patient was prepped and draped in the usual s terile fashion. Ultrasound interrogation of the right neck revealed patency and compressibility of t he right internal jugular vein. A 21-gauge micropuncture was then used to gain access to this vein u nder ultrasound guidance. A hard copy ultrasound image was recorded. A guidewire was advanced centra lly over which, following dilatation, a temporary dialysis catheter was placed. The new catheter wa s found to flush and aspirate normally. The catheter was secured in place. Sterile dressings were nancy lied. No immediate complications were identified. IMPRESSION: Placement of a right internal jugular temporary dialysis catheter Electronically signed by: Kyaw Mcclure MD (08/23/2021 4:58 PM) [id number]
--- NOTE | 2021-08-23 19:53 | NUR ---
1800 Line placed for CRRT w initiation 1330 5 /2. Levo restarted and titrated up remainder of day. Likes side lying position -w BP changes noted. Cuff size and relocation for accurate pressure readings attempted. C/o "being cold" afebrile 1700. BG 200 past 12 H shift w/o need for SS insulin. Refuses all meals this past 12 H. Continue w POC
[2021-08-23 20:23] LABS: MAGNESIUM 2.3 mg/dL (1.8-2.4); PHOSPHORUS 3.9 mg/dL (2.6-4.7); POTASSIUM 3.2 mmol/L (3.5-5.1)
[2021-08-23] MEDS: MILRINONE 20MG/100ML PREMIX 100 ML IV PRN (21:05)
[2021-08-23] MEDS: NOREPINEPHRINE VIAL 8 MG in IV DEXTROSE 5% 250 ML IV PRN (21:06)
[2021-08-23] MEDS ORDERED: [UNRECOGNIZED DRUG - OTHER] IV SCH (21:08)
[2021-08-24] VITALS (23 sets, daily range): BP systolic 74–99; BP diastolic 42–63
[2021-08-24 02:41] LABS: HEMATOCRIT 30.7 % (39.0-53.0); HEMOGLOBIN 10.6 g/dL (13.0-17.5); RED BLOOD COUNT 3.13 x10^6/uL (4.30-5.70); RED CELL DISTRIBUTION WIDTH 16.7 % (11.5-14.5); WHITE BLOOD COUNT 8.2 x10^3/uL (4.0-11.0)
[2021-08-24 02:43] LABS: CALCIUM 7.6 mg/dL (8.5-10.1); CREATININE 2.3 mg/dL (0.7-1.3); GFR 28.9
[2021-08-24 02:48] LABS: MAGNESIUM 2.2 mg/dL (1.8-2.4); PHOSPHORUS 3.3 mg/dL (2.6-4.7)
[2021-08-24] MEDS: [UNRECOGNIZED DRUG - OTHER] IV SCH ×7 (05:03→13:05)
[2021-08-24] MEDS: CALCIUM CHLORIDE IV SCH ×7 (05:03→13:05)
[2021-08-24] MEDS: POTASSIUM CHLORIDE IV SCH ×7 (05:03→13:05)
[2021-08-24] MEDS: INSULIN LISPRO 300 UNITS/3 ML VIAL. SQ SCH ×3 (08:00→17:00)
[2021-08-24] MEDS: LOPERAMIDE 2 MG CAPSULE PO PRN ×2 (08:10→17:52)
[2021-08-24] MEDS: POTASSIUM CHLORIDE 20 MEQ TABLET.ER. PO SCH (08:10)
[2021-08-24] MEDS: BENZONATATE 100 MG CAPSULE. PO SCH ×3 (08:10→20:33)
--- NOTE | 2021-08-24 08:55 | PDOC ---
DATE OF SERVICE DATE: 08/24/21 TIME: 08:54 SUBJECTIVE ROS stable on CRRT On Pressor support- Vasopressin, Levophed and Milrinone UOP declined OBJECTIVE Vital Signs Vital Signs Date Time Temp Pulse Resp B/P (MAP) Pulse Ox O2 Delivery O2 Flow Rate FiO2 08/24/21 08:00 97.0 22 99/47 97.0 08/24/21 07:00 98 08/24/21 06:00 98 08/24/21 04:00 Room Air I & 0 Intake and Output 08/24/21 06:59 Intake Total 847 ml Output Total 256 ml Balance 591 ml Intake Oral 365 ml IV Total 482 ml Output Urine Total 56 ml Stool Total 200 ml # Bowel Movements 5 PHYSICAL EXAM Physical Exam GEN.: NAD HEENT: Head is normocephalic, atraumatic, on RA NECK: Supple. LUNGS: Clear to auscultation.Non labored HEART: RRR, S1, S2 present. + murmur ABDOMEN: Protrubent, NT , BS + EXTREMITIES: Without any cyanosis.LE edema + NEUROLOGIC: Moving all Extrem PSYCHIATRIC: Poor historian SKIN: No rash Hernandez + DIAGNOSIS/ASSESSMENT Assessment & Plan JIMY- Suspect Vasomotor/Cardiorenal Normal Cr in Nov 2020 , No interval labs . Resp status stable, Worsening renal function . Oligoanuric Tolerating CRRT- 0On Pressor support x 2 and Milrinone . No net UF 2/2 Hypotension Supportive care, strict I/O. Avoid Nephrotoxins . Non-ischemic cardiomyopathy, cardiogenic shock; on milrinone. LVEF down to 10- 15% CAD s/p PCI/FELICIA to OM/LCx 12/12 Severe - Acute on chronic systolic and diastolic HF COVID 19 Positive- fully vaccinated and booster. Not hypoxic Hypotension- Vasopressin and Levophed HypoNatremia - suspect cardiac etiology . 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 Thrombocytopenia, coagulopathy, abnormal LFTs - unremarkable liver on CT w/ mild ascites and anasarca H/o heavy alcohol use - none for 8-9 months COMMENT/RELEVANT DATA Meds Current Medications Medications (Trade) Dose Ordered Sig/Laron Start Time Stop Time Status Last Admin Dose Admin Albumin Human 100 ml @ 100 mls/hr 1X ONCE 08/21/21 13:30 08/21/21 14:29 DC 08/21/21 13:58 100 MLS/HR Aspirin (Alberto Aspirin) 325 mg DAILY 08/21/21 09:00 08/23/21 14:50 DC 08/23/21 10:20 325 MG Atorvastatin Calcium (Lipitor) 40 mg QHS 08/20/21 21:00 08/23/21 14:50 DC 08/22/21 21:11 40 MG Benzonatate (Tessalon Perle) 100 mg [id number] 08/22/21 14:00 08/24/21 08:10 100 MG Clopidogrel Bisulfate (Plavix) 75 mg DAILY 08/21/21 09:00 08/23/21 14:50 DC 08/23/21 10:24 75 MG Dextrose (Dextrose 50%-Water Syringe) 12.5 gm PRN Q15MIN PRN 08/20/21 20:45 Dextrose (Iv Dextrose 5%) 250 ml PRN Q15MIN PRN 08/20/21 20:45 Enoxaparin Sodium (Lovenox 40mg Syringe) 40 mg DAILY 08/21/21 09:00 08/21/21 07:37 DC Fentanyl Citrate (Fentanyl 2ml Vial) 25 mcg PRN Q2HR PRN 08/20/21 13:30 Furosemide (Lasix) 80 mg [id number] 08/21/21 09:00 08/22/21 07:24 DC 08/21/21 17:09 80 MG Guaifenesin (Robitussin Dm) 10 ml PRN Q6HRS PRN 08/22/21 09:30 08/22/21 09:35 10 ML Heparin Sodium (Porcine) (Heparin Sodium) 5,000 unit Q12HR 08/21/21 09:00 08/23/21 14:51 DC 08/22/21 21:13 5,000 UNIT Info (CONTRAST GIVEN -- Rx MONITORING) 1 each PRN DAILY PRN 08/20/21 10:30 08/22/21 10:29 DC 08/20/21 11:21 1 EACH Insulin Human Lispro (HumaLOG) 0-7 UNITS TIDWMEALS 08/21/21 08:00 Iohexol (Omnipaque 350 Mg/ml) 100 ml 1X ONCE 08/20/21 10:15 08/20/21 10:23 DC Lidocaine HCl (Buffered Lidocaine 1%) 6 ml 1X ONCE 08/23/21 09:45 08/23/21 09:46 DC 08/23/21 09:40 5 ML Loperamide HCl (Imodium) 2 mg PRN Q15MIN PRN 08/22/21 09:30 08/24/21 08:10 2 MG Metoprolol Succinate (Toprol Xl) 25 mg DAILY 08/21/21 09:00 Milrinone Lactate/ Dextrose 100 ml @ 9.113 mls/ hr CONT PRN 08/21/21 08:00 08/23/21 21:05 3.038 MLS/HR Norepinephrine Bitartrate 8 mg/ Dextrose 258 ml @ 15.132 mls/ hr CONT PRN 08/20/21 18:45 08/23/21 21:06 15.132 MLS/HR Ondansetron HCl (Zofran) 4 mg PRN Q6HRS PRN 08/20/21 21:15 Oxycodone HCl (Roxicodone) 5 mg PRN Q3HRS PRN 08/20/21 21:15 Potassium Chloride 15 meq/ Bicarbonate Dialysis Soln w/ out KCl 5,007.5 ml @ 1,000 mls/ hr Q5H1M 08/23/21 12:00 08/23/21 11:04 DC Potassium Chloride 5 meq/ Calcium Chloride 12.5 meq/ Bicarbonate Dialysis Soln w/ out KCl 5,011.4286 ml @ 500 mls/hr Q10H2M 08/23/21 22:00 08/24/21 08:22 500 MLS/HR Potassium Chloride/Water 100 ml @ 100 mls/hr Q1H 08/23/21 08:00 08/23/21 09:59 DC 08/23/21 11:45 100 MLS/HR Potassium Chloride (Klor-Con) 20 meq DAILY 08/21/21 09:00 08/24/21 08:10 20 MEQ Psyllium Hydrophilic Mucilloid (Metamucil Fiber Packet) 1 pkt QHS 08/22/21 21:00 08/22/21 18:49 DC Sodium Chloride 1,000 ml @ 125 mls/hr 1X ONCE 08/22/21 07:30 08/22/21 15:29 DC 08/22/21 07:49 125 MLS/HR Vasopressin 20 unit/Sodium Chloride 101 ml @ 9 mls/hr CONT PRN 08/21/21 13:30 08/23/21 16:20 9 MLS/HR Zolpidem Tartrate (Ambien) 5 mg PRN QHS PRN 08/20/21 21:15 Lab Laboratory Tests Test 08/23/21 10:59 08/23/21 19:25 08/23/21 19:50 08/24/21 02:25 Glucose (Fingerstick) 220 mg/dL (70-99) 187 mg/dL (70-99) Sodium Level 127 mmol/L (136-145) 129 mmol/L (136-145) Potassium Level 3.2 mmol/L (3.5-5.1) 3.0 mmol/L (3.5-5.1) Chloride Level 89 mmol/L (98-107) 92 mmol/L (98-107) Carbon Dioxide Level 26 mmol/L (21-32) 25 mmol/L (21-32) Anion Gap 12 (6-14) 12 (6-14) Phosphorus Level 3.9 mg/dL (2.6-4.7) 3.3 mg/dL (2.6-4.7) Magnesium Level 2.3 mg/dL (1.8-2.4) 2.2 mg/dL (1.8-2.4) White Blood Count 8.2 x10^3/uL (4.0-11.0) Red Blood Count 3.13 x10^6/uL (4.30-5.70) Hemoglobin 10.6 g/dL (13.0-17.5) Hematocrit 30.7 % (39.0-53.0) Mean Corpuscular Volume 98 fL (79-100) Mean Corpuscular Hemoglobin 34 pg (25-35) Mean Corpuscular Hemoglobin Concent 35 g/dL (31-37) Red Cell Distribution Width 16.7 % (11.5-14.5) Platelet Count 81 x10^3/uL (140-400) Blood Urea Nitrogen 53 mg/dL (8-26) Creatinine 2.3 mg/dL (0.7-1.3) Estimated GFR (Cockcroft-Gault) 28.9 Glucose Level 165 mg/dL (70-99) Calcium Level 7.6 mg/dL (8.5-10.1) Test 08/24/21 08:14 Glucose (Fingerstick) 151 mg/dL (70-99) Results All relevant outside records, renal labs, imaging studies, telemetry/EKG's were reviewed. Justicifation of Admission Dx: Justifications for Admission: Justification of Admission Dx: Yes Acute Renal Failure: 3-Fold Rise in Serum Crea ROSA STYLES MD August 24, 2021 08:55
[2021-08-24 09:34] LABS: POTASSIUM 3.1 mmol/L (3.5-5.1)
--- NOTE | 2021-08-24 09:45 | PDOC ---
JERRI JUSTICE REPOSSESSOR 08/24/21 0945: CARDIO Progress Notes Date and Time Date of Service 08/24/2021 Time of Evaluation 0920 Subjective Subjective: No Chest Pain, No shortness of breath, No Palpitations Vitals Vitals Vital Signs Date Time Temp Pulse Resp B/P (MAP) Pulse Ox O2 Delivery O2 Flow Rate FiO2 08/24/21 09:00 101 23 90/56 97 Room Air 08/24/21 08:00 97.0 97.0 Weight Weight [ ] Input and Output Intake and Output Intake and Output 08/24/21 07:00 Intake Total 847 ml Output Total 256 ml Balance 591 ml Intake Oral 365 ml IV Total 482 ml Output Urine Total 56 ml Stool Total 200 ml # Bowel Movements 5 Laboratory Labs Laboratory Tests Test 08/23/21 10:59 08/23/21 19:25 08/23/21 19:50 08/24/21 02:25 Glucose (Fingerstick) 220 mg/dL (70-99) 187 mg/dL (70-99) Sodium Level 127 mmol/L (136-145) 129 mmol/L (136-145) Potassium Level 3.2 mmol/L (3.5-5.1) 3.0 mmol/L (3.5-5.1) Chloride Level 89 mmol/L (98-107) 92 mmol/L (98-107) Carbon Dioxide Level 26 mmol/L (21-32) 25 mmol/L (21-32) Anion Gap 12 (6-14) 12 (6-14) Phosphorus Level 3.9 mg/dL (2.6-4.7) 3.3 mg/dL (2.6-4.7) Magnesium Level 2.3 mg/dL (1.8-2.4) 2.2 mg/dL (1.8-2.4) White Blood Count 8.2 x10^3/uL (4.0-11.0) Red Blood Count 3.13 x10^6/uL (4.30-5.70) Hemoglobin 10.6 g/dL (13.0-17.5) Hematocrit 30.7 % (39.0-53.0) Mean Corpuscular Volume 98 fL (79-100) Mean Corpuscular Hemoglobin 34 pg (25-35) Mean Corpuscular Hemoglobin Concent 35 g/dL (31-37) Red Cell Distribution Width 16.7 % (11.5-14.5) Platelet Count 81 x10^3/uL (140-400) Blood Urea Nitrogen 53 mg/dL (8-26) Creatinine 2.3 mg/dL (0.7-1.3) Estimated GFR (Cockcroft-Gault) 28.9 Glucose Level 165 mg/dL (70-99) Calcium Level 7.6 mg/dL (8.5-10.1) Test 08/24/21 08:14 Glucose (Fingerstick) 151 mg/dL (70-99) Microbiology Micro Microbiology 08/22/21 Urine Culture - Final, Complete Physical Exam HEENT: Neck Supple W Full Motion Chest: Symmetric LUNGS: Other (diminished bases) Heart: RRR (SR with PVCs), other (distant heart tones ) Abdomen: Soft N/T, Other (ascites ) Extremities: Other (1+ bilateral LE edema, jaundiced ) Neurology: alert, oriented, follow commands Assessment Assessment 1. Acute on chronic systolic CHF 2. Non-ischemic cardiomyopathy, cardiogenic shock; on milrinone. LVEF down to 10-15% 3. COVID-19 4. CAD s/p PCI/FELICIA to OM/LCx 12/12 5. Severe 6. Diabetes, II 7. Hyperlipidemia 8. JIMY; CRRT in place 9. Hyponatremia, hypokalemia 10. Transaminitis, ascites, jaundice- h/o ETOH abuse sober at least 8 mo 11. Thrombocytopenia, coagulopathy 12. Cardiohepatorenal syndrome Recommendations Continue milrinone Holding heparin, PLT at 81, Hold plavix. Continue baby ASA. Recheck INR Holding statin Pressor support with vasopressin and levophed Continue milrinone. Continue HF optimization CRRT per renal Replace K Future TAVR referral Justicifation of Admission Dx: Justifications for Admission: Justification of Admission Dx: Yes Acute Renal Failure: 3-Fold Rise in Serum Crea JAN HULL MD 08/25/21 0559: CARDIO Progress Notes Assessment Assessment Agree with FIELD CANE SCALE CLERK's assessment and plan. Patient continues to need pressor support EF 10-15%, Continue milrinone infusion for inotropic support CAD status clinically stable We will consider TAVR referral for severe once active issues resolve Continue CRRT per nephrology team JERRI JUSTICE REPOSSESSOR August 24, 2021 09:45 JAN HULL MD August 25, 2021 05:59
--- NOTE | 2021-08-24 09:47 | PDOC ---
Date of Service: DATE: 08/24/21 TIME: 09:41 Objective: Objective: D/w nurse - diarrhea slowing, still on pressors and CRRT. Vital Signs: Vital Signs Date Time Temp Pulse Resp B/P (MAP) Pulse Ox O2 Delivery O2 Flow Rate FiO2 08/24/21 09:00 101 23 90/56 97 Room Air 08/24/21 08:00 97.0 97.0 Labs: Laboratory Tests Test 08/23/21 10:59 08/23/21 19:25 08/23/21 19:50 08/24/21 02:25 Glucose (Fingerstick) 220 mg/dL 187 mg/dL Sodium Level 127 mmol/L 129 mmol/L Potassium Level 3.2 mmol/L 3.0 mmol/L Chloride Level 89 mmol/L 92 mmol/L Carbon Dioxide Level 26 mmol/L 25 mmol/L Anion Gap 12 12 Phosphorus Level 3.9 mg/dL 3.3 mg/dL Magnesium Level 2.3 mg/dL 2.2 mg/dL White Blood Count 8.2 x10^3/uL Red Blood Count 3.13 x10^6/uL Hemoglobin 10.6 g/dL Hematocrit 30.7 % Mean Corpuscular Volume 98 fL Mean Corpuscular Hemoglobin 34 pg Mean Corpuscular Hemoglobin Concent 35 g/dL Red Cell Distribution Width 16.7 % Platelet Count 81 x10^3/uL Blood Urea Nitrogen 53 mg/dL Creatinine 2.3 mg/dL Estimated GFR (Cockcroft-Gault) 28.9 Glucose Level 165 mg/dL Calcium Level 7.6 mg/dL Test 08/24/21 08:14 08/24/21 09:00 Glucose (Fingerstick) 151 mg/dL Sodium Level 133 mmol/L Potassium Level 3.1 mmol/L Chloride Level 94 mmol/L Carbon Dioxide Level 26 mmol/L Anion Gap 13 Phosphorus Level 3.0 mg/dL Magnesium Level 2.0 mg/dL PE: GEN: COVID isolation - visual exam - CRRT, Jennie hugger LUNGS: room air HEART: borderline tachycardic ABD: non-distended NEURO/PSYCH: resting A/P: COVID+ CHF, cardiomyopathy, Hyponatremia, hypokalemia, JIMY - better Abnormal LFTs - suspect 2/2 cardiac issues Mild anemia, thrombocytopenia, coagulopathy Diarrhea - better, C Diff negative -- Supportive care GI-bradshaw. Follow LFTs. Justicifation of Admission Dx: Justifications for Admission: Justification of Admission Dx: Yes Acute Renal Failure: 3-Fold Rise in Serum Crea GILBERT UNGER August 24, 2021 09:47
[2021-08-24 10:58] LABS: PROTHROMBIN TIME PATIENT 24.7 SEC (11.7-14.0)
--- NOTE | 2021-08-24 10:59 | PDOC ---
[employer] PROGRESS NOTE Date of Service DOS: DATE: 08/24/21 TIME: 10:57 Chief Complaint Chief Complaint Weakness COVID 19 -fully vaccinated and booster. Not hypoxic Lista symptoms seem to be GI related and not even clear if these are COVID symptoms he does have a little bit of a cough Dyspnea Pleural effusion Abdominal distention LE swelling Thrombocytopenia, coagulopathy, abnormal LFTs - unremarkable liver on CT w/ mild ascites and anasarca CHF Hypokalemia Hyponatremia Acute kidney injury Lactic acidosis CAD on Plavix and ASA H/o heavy alcohol use - none for 8-9 months History of Present Illness History of Present Illness 08/24/2021 Patient seen and examined in the ICU His blood pressure is still down to 99/47 He is on IV Levophed and IV vasopressin Currently on CRRT I called the pharmacy to discuss the CRRT dialysate Creatinine is improving from 5.8-3.5 He remains critically ill 08/24/2019 Patient seen and examined He is still on milrinone drip Discussed with RN Discussed with case management Chart reviewed Patient is a 65-year-old male with past medical history CAD s/p stenting, chronic systolic CHF, presents to the ED at the behest of his PCP due to abnormal lab work. Patient is not much of a historian. Patient states he has been feeling some weakness for the past 2 days prior to arrival in ED. He notes associated increased abdominal distention, yellowing of his skin, and swelling of his legs. He has not been seen by a physician for quite some time, we do not have any much in the way of prior records at this facility. Labs on admission show hemoglobin 12.9, hematocrit 37.8, platelets 134, INR 1.5, sodium 129, potassium 2.6, BUN 61, creatinine 2.5, CBG 180, T bili 6.1, AST 380, ALT 388, alkaline phosphatase 119, troponin 76, BNP 23,307. Patient does admit to some i nconsistent use of his home Lasix. CT chest/abdomen/pelvis showed moderate right and small left pleural effusion, mild intra-abdominal ascites and mild anasarca. Abdominal ultrasound showed mildly increased hepatic echogenicity that can be seen in mild steatosis, moderate right pleural effusion and small perihepatic ascites. He denies any shortness of breath or chest pain. Patient was admitted for further medical management. Given fluid challenge with normal saline bolus and albumin and has not made any urine output overnight 08/21: Seen bedside in ICU. Blood pressure 85/43. Levophed ordered central line functional. NA 126, K2.9, BUN 68, CR 2.7. Edematous up to the abdominal wall. Plan to add milrinone and IV Lasix for diuresis offered Hernandez catheter patient says he would not like this this time. CVP 10 08/22: Seen in ICU on milrinone and vasopressin and blood pressure improved. Urine output only 200 cc despite aggressive Lasix regimen. BUN and creatinine increased. PCR for COVID-19 returned positive not requiring oxygen. He does have a slight cough and voluminous diarrhea. Not foul-smelling diarrhea likely this is COVID-related. Will treat. Discussed with cardiology likely with worsening aortic stenosis. Discussed with nephrology and with patient likely will need at least temporary dialysis in the next 24 to 48 hours. We will trial additionally on IV fluids again. Supportive care for COVID-19 continue ICU level care on pressors. Vitals/I&O Vitals/I&O: Vital Signs Date Time Temp Pulse Resp B/P (MAP) Pulse Ox O2 Delivery O2 Flow Rate FiO2 08/24/21 10:00 22 92/58 92 Room Air 08/24/21 09:00 101 08/24/21 08:00 97.0 97.0 I & O 08/23/21 08/23/21 08/24/21 15:00 23:00 07:00 Intake Total 125 ml 120 ml 602 ml Output Total 215 ml 8 ml 33 ml Balance -90 ml 112 ml 569 ml Physical Exam General: Alert, Cooperative Heart: Regular rate, Normal S1, Normal S2 Lungs: Crackles Abdomen: Other (Fluid with) Extremities: Other (Bilateral pitting edema) Labs Labs: Laboratory Tests Test 08/23/21 10:59 08/23/21 19:25 08/23/21 19:50 08/24/21 02:25 Glucose (Fingerstick) 220 mg/dL (70-99) 187 mg/dL (70-99) Sodium Level 127 mmol/L (136-145) 129 mmol/L (136-145) Potassium Level 3.2 mmol/L (3.5-5.1) 3.0 mmol/L (3.5-5.1) Chloride Level 89 mmol/L (98-107) 92 mmol/L (98-107) Carbon Dioxide Level 26 mmol/L (21-32) 25 mmol/L (21-32) Anion Gap 12 (6-14) 12 (6-14) Phosphorus Level 3.9 mg/dL (2.6-4.7) 3.3 mg/dL (2.6-4.7) Magnesium Level 2.3 mg/dL (1.8-2.4) 2.2 mg/dL (1.8-2.4) White Blood Count 8.2 x10^3/uL (4.0-11.0) Red Blood Count 3.13 x10^6/uL (4.30-5.70) Hemoglobin 10.6 g/dL (13.0-17.5) Hematocrit 30.7 % (39.0-53.0) Mean Corpuscular Volume 98 fL (79-100) Mean Corpuscular Hemoglobin 34 pg (25-35) Mean Corpuscular Hemoglobin Concent 35 g/dL (31-37) Red Cell Distribution Width 16.7 % (11.5-14.5) Platelet Count 81 x10^3/uL (140-400) Blood Urea Nitrogen 53 mg/dL (8-26) Creatinine 2.3 mg/dL (0.7-1.3) Estimated GFR (Cockcroft-Gault) 28.9 Glucose Level 165 mg/dL (70-99) Calcium Level 7.6 mg/dL (8.5-10.1) Test 08/24/21 08:14 08/24/21 09:00 08/24/21 10:38 Glucose (Fingerstick) 151 mg/dL (70-99) 161 mg/dL (70-99) Sodium Level 133 mmol/L (136-145) Potassium Level 3.1 mmol/L (3.5-5.1) Chloride Level 94 mmol/L (98-107) Carbon Dioxide Level 26 mmol/L (21-32) Anion Gap 13 (6-14) Phosphorus Level 3.0 mg/dL (2.6-4.7) Magnesium Level 2.0 mg/dL (1.8-2.4) Assessment and Plan Assessmemt and Plan Problems Medical Problems: (1) Acute renal failure Status: Acute (2) Hyperbilirubinemia Status: Acute (3) Hypokalemia Status: Acute (4) Hypotension Status: Acute (5) Lactic acidosis Status: Acute Acute on chronic congestive heart failure (systolic and diastolic) Weakness COVID 19 -fully vaccinated and booster. Not hypoxic Lista symptoms seem to be GI related and not even clear if these are COVID symptoms he does have a little bit of a cough Dyspnea Pleural effusion Abdominal distention LE swelling Thrombocytopenia, coagulopathy, abnormal LFTs - unremarkable liver on CT w/ mild ascites and anasarca CHF Hypokalemia Hyponatremia Acute kidney injury Lactic acidosis CAD on Plavix and ASA H/o heavy alcohol use - none for 8-9 months Plan Continue CRRT Appreciate subspecialist input Home meds Continue milrinone drip IV Lasix ICU monitoring Trend lab FEN - Cardiac ADA diet PPX - heparin bid FULL CODE CC time 31 minutes Dispo - inpatient ICU Comment Review of Relevant I have reviewed the following items priyanka (where applicable) has been applied. Medications: Current Medications Medications (Trade) Dose Ordered Sig/Laron Route PRN Reason Start Time Stop Time Status Last Admin Dose Admin Potassium Chloride 5 meq/ Calcium Chloride 12.5 meq/ Bicarbonate Dialysis Soln w/ out KCl 5,011.4286 ml @ 500 mls/hr Q10H2M IV 08/23/21 12:00 08/23/21 21:08 DC 08/23/21 13:30 Potassium Chloride 5 meq/ Calcium Chloride 12.5 meq/ Bicarbonate Dialysis Soln w/ out KCl 5,011.4286 ml @ 1,000 mls/hr Q5H1M IV 08/23/21 12:00 08/24/21 08:23 Potassium Chloride 5 meq/ Calcium Chloride 12.5 meq/ Bicarbonate Dialysis Soln w/ out KCl 5,011.4286 ml @ 1,000 mls/hr Q5H1M IV 08/23/21 12:00 08/24/21 08:24 Potassium Chloride 5 meq/ Calcium Chloride 12.5 meq/ Bicarbonate Dialysis Soln w/ out KCl 5,011.4286 ml @ 500 mls/hr Q10H2M IV 08/23/21 22:00 08/24/21 08:22 Justifications for Admission Other Justification PAL ALICIA K III DO August 24, 2021 10:59
[2021-08-24 11:08] LABS: ALBUMIN 2.9 g/dL (3.4-5.0); DIRECT BILIRUBIN 7.1 mg/dL (0.0-0.2); TOTAL BILIRUBIN 11.1 mg/dL (0.2-1.0); TOTAL PROTEIN 5.4 g/dL (6.4-8.2)
[2021-08-24] MEDS: ASPIRIN ENTERIC COATED 81 MG TABLET.DR. PO SCH (12:00)
[2021-08-24] MEDS ORDERED: POTASSIUM CHLORIDE 20MEQ 100 ML IV ONE ×2 (16:00→20:00)
[2021-08-24 18:25] LABS: CALCIUM 7.6 mg/dL (8.5-10.1); CREATININE 1.9 mg/dL (0.7-1.3); POTASSIUM 3.2 mmol/L (3.5-5.1)
[2021-08-24 18:29] LABS: MAGNESIUM 2.1 mg/dL (1.8-2.4); PHOSPHORUS 2.9 mg/dL (2.6-4.7)
--- NOTE | 2021-08-24 18:36 | NUR ---
[address] Fitch aware of status. 20 meq IV KCL pending earlier resulted lab. Increased intolerance to activity- rolling side to casket liner just for linen chage. Cont w productive cough. Condition guarded
[2021-08-24] MEDS: MILRINONE 20MG/100ML PREMIX 100 ML IV PRN (20:20)
[2021-08-25] VITALS (28 sets, daily range): BP systolic 76–100; BP diastolic 48–72
[2021-08-25 05:50] LABS: CALCIUM 7.9 mg/dL (8.5-10.1); CREATININE 2.8 mg/dL (0.7-1.3); POTASSIUM 3.4 mmol/L (3.5-5.1)
[2021-08-25] MEDS: VASOPRESSIN - VASOSTRICT 20 UNIT in IV NORMAL SALINE 100ML 100 ML IV PRN ×2 (06:46→17:38)
[2021-08-25] MEDS: NOREPINEPHRINE VIAL 8 MG in IV DEXTROSE 5% 250 ML IV PRN ×2 (06:47→17:39)
[2021-08-25] MEDS: INSULIN LISPRO 300 UNITS/3 ML VIAL. SQ SCH ×3 (08:00→17:00)
[2021-08-25] MEDS: LOPERAMIDE 2 MG CAPSULE PO PRN (08:15)
[2021-08-25] MEDS: BENZONATATE 100 MG CAPSULE. PO SCH ×3 (08:15→20:28)
[2021-08-25] MEDS: ASPIRIN ENTERIC COATED 81 MG TABLET.DR. PO SCH (08:15)
[2021-08-25] MEDS: POTASSIUM CHLORIDE 20 MEQ TABLET.ER. PO SCH (08:16)
[2021-08-25] MEDS: MILRINONE 20MG/100ML PREMIX 100 ML IV PRN (08:17)
--- NOTE | 2021-08-25 08:34 | PDOC ---
[employer] PROGRESS NOTE Date of Service DOS: DATE: 08/25/21 TIME: 08:33 Chief Complaint Chief Complaint Weakness COVID 19 -fully vaccinated and booster. Not hypoxic Lista symptoms seem to be GI related and not even clear if these are COVID symptoms he does have a little bit of a cough Dyspnea Pleural effusion Abdominal distention LE swelling Thrombocytopenia, coagulopathy, abnormal LFTs - unremarkable liver on CT w/ mild ascites and anasarca CHF Hypokalemia Hyponatremia Acute kidney injury Lactic acidosis CAD on Plavix and ASA H/o heavy alcohol use - none for 8-9 months History of Present Illness History of Present Illness 08/25/2021 Patient seen and examined Discussed with RN Chart reviewed He is still on IV Levophed He is also on IV vasopressin We had to stop the CRRT as we are out of dialysate I called the pharmacy it appears we will probably get dialysate and later today Patient with a strong cough Blood pressure still low at 91/59 He remains critically ill 08/24/2021 Patient seen and examined in the ICU His blood pressure is still down to 99/47 He is on IV Levophed and IV vasopressin Currently on CRRT I called the pharmacy to discuss the CRRT dialysate Creatinine is improving from 5.8-3.5 He remains critically ill 08/24/2019 Patient seen and examined He is still on milrinone drip Discussed with RN Discussed with case management Chart reviewed Patient is a 65-year-old male with past medical history CAD s/p stenting, chronic systolic CHF, presents to the ED at the behest of his PCP due to abnormal lab work. Patient is not much of a historian. Patient states he has been feeling some weakness for the past 2 days prior to arrival in ED. He notes associated increased abdominal distention, yellowing of his skin, and swelling of his legs. He has not been seen by a physician for quite some time, we do not have any much in the way of prior records at this facility. Labs on admission show hemoglobin 12.9, hematocrit 37.8, platelets 134, INR 1.5, sodium 129, potassium 2.6, BUN 61, creatinine 2.5, CBG 180, T bili 6.1, AST 380, ALT 388, alkaline phosphatase 119, troponin 76, BNP 23,307. Patient does admit to some inconsistent use of his home Lasix. CT chest/abdomen/pelvis showed moderate right and small left pleural effusion, mild intra-abdominal ascites and mild anasarca. Abdominal ultrasound showed mildly increased hepatic echogenicity that can be seen in mild steatosis, moderate right pleural effusion and small perihepatic ascites. He denies any shortness of breath or chest pain. Patient was admitted for further medical management. Given fluid challenge with normal saline bolus and albumin and has not made any urine output overnight 08/21: Seen bedside in ICU. Blood pressure 85/43. Levophed ordered central line functional. NA 126, K2.9, BUN 68, CR 2.7. Edematous up to the abdominal wall. Plan to add milrinone and IV Lasix for diuresis offered Hernandez catheter patient says he would not like this this time. CVP 10 08/22: Seen in ICU on milrinone and vasopressin and blood pressure improved. Urine output only 200 cc despite aggressive Lasix regimen. BUN and creatinine increased. PCR for COVID-19 returned positive not requiring oxygen. He does wall ve a slight cough and voluminous diarrhea. Not foul-smelling diarrhea likely this is COVID-related. Will treat. Discussed with cardiology likely with worsening aortic stenosis. Discussed with nephrology and with patient likely will need at least temporary dialysis in the next 24 to 48 hours. We will trial additionally on IV fluids again. Supportive care for COVID-19 continue ICU level care on pressors. Vitals/I&O Vitals/I&O: Vital Signs Date Time Temp Pulse Resp B/P (MAP) Pulse Ox O2 Delivery O2 Flow Rate FiO2 08/25/21 08:00 97.4 104 25 96/55 96 Room Air 97.4 I & O 08/24/21 08/24/21 08/25/21 15:00 23:00 07:00 Intake Total 325 ml 625 ml 1249 ml Output Total 67 ml 5 ml 4 ml Balance 258 ml 620 ml 1245 ml Physical Exam General: Cooperative, mild distress Heart: Regular rate, Normal S1, Normal S2 Lungs: Crackles, Other (He has a harsh cough) Abdomen: Other (Fluid with) Extremities: Other (Bilateral pitting edema) Labs Labs: Laboratory Tests Test 08/24/21 09:00 08/24/21 10:14 08/24/21 10:38 08/24/21 15:00 Sodium Level 133 mmol/L (136-145) 131 mmol/L (136-145) Potassium Level 3.1 mmol/L (3.5-5.1) 3.2 mmol/L (3.5-5.1) Chloride Level 94 mmol/L (98-107) 94 mmol/L (98-107) Carbon Dioxide Level 26 mmol/L (21-32) 25 mmol/L (21-32) Anion Gap 13 (6-14) 12 (6-14) Phosphorus Level 3.0 mg/dL (2.6-4.7) 2.9 mg/dL (2.6-4.7) Magnesium Level 2.0 mg/dL (1.8-2.4) 2.1 mg/dL (1.8-2.4) Prothrombin Time 24.7 SEC (11.7-14.0) Prothromb Time International Ratio 2.3 (0.8-1.1) Total Bilirubin 11.1 mg/dL (0.2-1.0) Direct Bilirubin 7.1 mg/dL (0.0-0.2) Aspartate Amino Transf (AST/SGOT) 382 U/L (15-37) Alanine Aminotransferase (ALT/SGPT) 464 U/L (16-63) Alkaline Phosphatase 123 U/L (46-116) Total Protein 5.4 g/dL (6.4-8.2) Albumin 2.9 g/dL (3.4-5.0) Glucose (Fingerstick) 161 mg/dL (70-99) Blood Urea Nitrogen 36 mg/dL (8-26) Creatinine 1.9 mg/dL (0.7-1.3) Estimated GFR (Cockcroft-Gault) 36.0 Glucose Level 160 mg/dL (70-99) Calcium Level 7.6 mg/dL (8.5-10.1) Test 08/25/21 05:30 08/25/21 08:28 Sodium Level 129 mmol/L (136-145) Potassium Level 3.4 mmol/L (3.5-5.1) Chloride Level 94 mmol/L (98-107) Carbon Dioxide Level 26 mmol/L (21-32) Anion Gap 9 (6-14) Blood Urea Nitrogen 47 mg/dL (8-26) Creatinine 2.8 mg/dL (0.7-1.3) Estimated GFR (Cockcroft-Gault) 23.0 Glucose Level 180 mg/dL (70-99) Calcium Level 7.9 mg/dL (8.5-10.1) Glucose (Fingerstick) 181 mg/dL (70-99) Assessment and Plan Assessmemt and Plan Problems Medical Problems: (1) Acute renal failure Status: Acute (2) Hyperbilirubinemia Status: Acute (3) Hypokalemia Status: Acute (4) Hypotension Status: Acute (5) Lactic acidosis Status: Acute Acute on chronic congestive heart failure (systolic and diastolic) Weakness COVID 19 -fully vaccinated and booster. Not hypoxic Lista symptoms seem to be GI related and not even clear if these are COVID symptoms he does have a little bit of a cough Dyspnea Pleural effusion Abdominal distention LE swelling Thrombocytopenia, coagulopathy, abnormal LFTs - unremarkable liver on CT w/ mild ascites and anasarca CHF Hypokalemia Hyponatremia Acute kidney injury Lactic acidosis CAD on Plavix and ASA H/o heavy alcohol use - none for 8-9 months Plan ICU monitoring Hope to resume CRRT later today if we get dialysate and Continue IV Levophed and IV vasopressin Appreciate subspecialist input Home meds Continue milrinone drip IV Lasix ICU monitoring Trend lab FEN - Cardiac ADA diet PPX - heparin bid FULL CODE Prognosis guarded CC time 33 minutes Dispo - inpatient ICU Comment Review of Relevant I have reviewed the following items priyanka (where applicable) has been applied. Medications: Current Medications Medications (Trade) Dose Ordered Sig/Laron Route PRN Reason Start Time Stop Time Status Last Admin Dose Admin Aspirin (Ecotrin) 81 mg [id number] PO 08/24/21 10:00 08/25/21 08:15 Potassium Chloride/Water 100 ml @ 100 mls/hr 1X ONCE IV 08/24/21 16:00 08/24/21 16:59 DC 08/24/21 17:52 Potassium Chloride/Water 100 ml @ 100 mls/hr 1X ONCE IV 08/24/21 20:00 08/24/21 20:59 DC 08/24/21 20:19 Justifications for Admission Other Justification PAL ALICIA III DO August 25, 2021 08:34
[2021-08-25] MEDS: METOPROLOL SUCC 24HR ER 25 MG TAB.ER.24H. PO SCH (09:00)
--- NOTE | 2021-08-25 09:00 | PDOC ---
DATE OF SERVICE DATE: 08/25/21 TIME: 08:59 SUBJECTIVE ROS stable, on On Pressor support- Vasopressin, Levophed and Milrinone OBJECTIVE Vital Signs Vital Signs Date Time Temp Pulse Resp B/P (MAP) Pulse Ox O2 Delivery O2 Flow Rate FiO2 08/25/21 08:00 Room Air 08/25/21 08:00 97.4 104 25 96/55 96 97.4 I & 0 Intake and Output 08/25/21 07:00 Intake Total 2199 ml Output Total 76 ml Balance 2123 ml Intake Oral 1415 ml IV Total 509 ml Tube Feeding 275 ml Output Urine Total 16 ml Stool Total 60 ml # Bowel Movements 5 PHYSICAL EXAM Physical Exam GEN.: NAD HEENT: Head is normocephalic, atraumatic, on RA NECK: Supple. LUNGS: Clear to auscultation.Non labored HEART: RRR, S1, S2 present. + murmur ABDOMEN: Protrubent, NT , BS + EXTREMITIES: Without any cyanosis.LE edema + NEUROLOGIC: Moving all Extrem PSYCHIATRIC: Poor historian SKIN: No rash Hernandez + DIAGNOSIS/ASSESSMENT Assessment & Plan JIMY- Suspect Vasomotor/Cardiorenal Normal Cr in Nov 2020 , No interval labs . Resp status stable, Worsening renal function . Oligoanuric Off CRRT due to unavailability of solution On Pressor support x 2 and Milrinone . Hold off routine HD-may not tolerate it. Re-evaluate in a m . defer to cardiology for management of his primary issues Supportive care, strict I/O. Avoid Nephrotoxins . Non-ischemic cardiomyopathy, cardiogenic shock; on milrinone. LVEF down to 10- 15% CAD s/p PCI/FELICIA to OM/LCx 12/12 Severe - Acute on chronic systolic and diastolic HF COVID 19 Positive- fully vaccinated and booster. Not hypoxic Hypotension- Vasopressin and Levophed HypoNatremia - suspect cardiac etiology . Improving with [employer] HypoKalemia replace as indicated Pleural effusion- Moderate right and small left pleural effusion Abdominal distention- Mild intra-abdominal ascites and mild anasarca. Thrombocytopenia, coagulopathy, abnormal LFTs - unremarkable liver on CT w/ mild ascites and anasarca H/o heavy alcohol use - none for 8-9 months COMMENT/RELEVANT DATA Meds Current Medications Medications (Trade) Dose Ordered Sig/Laron Start Time Stop Time Status Last Admin Dose Admin Albumin Human 100 ml @ 100 mls/hr 1X ONCE 08/21/21 13:30 08/21/21 14:29 DC 08/21/21 13:58 100 MLS/HR Aspirin (Alberto Aspirin) 325 mg DAILY 08/21/21 09:00 08/23/21 14:50 DC 08/23/21 10:20 325 MG Aspirin (Ecotrin) 81 mg [id number] 08/24/21 10:00 08/25/21 08:15 81 MG Atorvastatin Calcium (Lipitor) 40 mg QHS 08/20/21 21:00 08/23/21 14:50 DC 08/22/21 21:11 40 MG Benzonatate (Tessalon Perle) 100 mg [id number] 08/22/21 14:00 08/25/21 08:15 100 MG Clopidogrel Bisulfate (Plavix) 75 mg DAILY 08/21/21 09:00 08/23/21 14:50 DC 08/23/21 10:24 75 MG Dextrose (Dextrose 50%-Water Syringe) 12.5 gm PRN Q15MIN PRN 08/20/21 20:45 Dextrose (Iv Dextrose 5%) 250 ml PRN Q15MIN PRN 08/20/21 20:45 Enoxaparin Sodium (Lovenox 40mg Syringe) 40 mg DAILY 08/21/21 09:00 08/21/21 07:37 DC Fentanyl Citrate (Fentanyl 2ml Vial) 25 mcg PRN Q2HR PRN 08/20/21 13:30 Furosemide (Lasix) 80 mg [id number] 08/21/21 09:00 08/22/21 07:24 DC 08/21/21 17:09 80 MG Guaifenesin (Robitussin Dm) 10 ml PRN Q6HRS PRN 08/22/21 09:30 08/22/21 09:35 10 ML Heparin Sodium (Porcine) (Heparin Sodium) 5,000 unit Q12HR 08/21/21 09:00 08/23/21 14:51 DC 08/22/21 21:13 5,000 UNIT Info (CONTRAST GIVEN -- Rx MONITORING) 1 each PRN DAILY PRN 08/20/21 10:30 08/22/21 10:29 DC 08/20/21 11:21 1 EACH Insulin Human Lispro (HumaLOG) 0-7 UNITS TIDWMEALS 08/21/21 08:00 Iohexol (Omnipaque 350 Mg/ml) 100 ml 1X ONCE 08/20/21 10:15 08/20/21 10:23 DC Lidocaine HCl (Buffered Lidocaine 1%) 6 ml 1X ONCE 08/23/21 09:45 08/23/21 09:46 DC 08/23/21 09:40 5 ML Loperamide HCl (Imodium) 2 mg PRN Q15MIN PRN 08/22/21 09:30 08/25/21 08:15 2 MG Metoprolol Succinate (Toprol Xl) 25 mg DAILY 08/21/21 09:00 Milrinone Lactate/ Dextrose 100 ml @ 9.113 mls/ hr CONT PRN 08/21/21 08:00 08/25/21 08:17 3.038 MLS/HR Norepinephrine Bitartrate 8 mg/ Dextrose 258 ml @ 15.132 mls/ hr CONT PRN 08/20/21 18:45 08/25/21 06:47 15.132 MLS/HR Ondansetron HCl (Zofran) 4 mg PRN Q6HRS PRN 08/20/21 21:15 Oxycodone HCl (Roxicodone) 5 mg PRN Q3HRS PRN 08/20/21 21:15 Potassium Chloride 15 meq/ Bicarbonate Dialysis Soln w/ out KCl 5,007.5 ml @ 1,000 mls/ hr Q5H1M 08/23/21 12:00 08/23/21 11:04 DC Potassium Chloride 5 meq/ Calcium Chloride 12.5 meq/ Bicarbonate Dialysis Soln w/ out KCl 5,011.4286 ml @ 500 mls/hr Q10H2M 08/23/21 22:00 08/24/21 19:15 DC 08/24/21 08:22 500 MLS/HR Potassium Chloride/Water 100 ml @ 100 mls/hr 1X ONCE 08/24/21 20:00 08/24/21 20:59 DC 08/24/21 20:19 100 MLS/HR Potassium Chloride (Klor-Con) 20 meq DAILY 08/21/21 09:00 08/25/21 08:16 20 MEQ Psyllium Hydrophilic Mucilloid (Metamucil Fiber Packet) 1 pkt QHS 08/22/21 21:00 08/22/21 18:49 DC Sodium Chloride 1,000 ml @ 125 mls/hr 1X ONCE 08/22/21 07:30 08/22/21 15:29 DC 08/22/21 07:49 125 MLS/HR Vasopressin 20 unit/Sodium Chloride 101 ml @ 9 mls/hr CONT PRN 08/21/21 13:30 08/25/21 06:46 9 MLS/HR Zolpidem Tartrate (Ambien) 5 mg PRN QHS PRN 08/20/21 21:15 Lab Laboratory Tests Test 08/24/21 09:00 08/24/21 10:14 08/24/21 10:38 08/24/21 15:00 Sodium Level 133 mmol/L (136-145) 131 mmol/L (136-145) Potassium Level 3.1 mmol/L (3.5-5.1) 3.2 mmol/L (3.5-5.1) Chloride Level 94 mmol/L (98-107) 94 mmol/L (98-107) Carbon Dioxide Level 26 mmol/L (21-32) 25 mmol/L (21-32) Anion Gap 13 (6-14) 12 (6-14) Phosphorus Level 3.0 mg/dL (2.6-4.7) 2.9 mg/dL (2.6-4.7) Magnesium Level 2.0 mg/dL (1.8-2.4) 2.1 mg/dL (1.8-2.4) Prothrombin Time 24.7 SEC (11.7-14.0) Prothromb Time International Ratio 2.3 (0.8-1.1) Total Bilirubin 11.1 mg/dL (0.2-1.0) Direct Bilirubin 7.1 mg/dL (0.0-0.2) Aspartate Amino Transf (AST/SGOT) 382 U/L (15-37) Alanine Aminotransferase (ALT/SGPT) 464 U/L (16-63) Alkaline Phosphatase 123 U/L (46-116) Total Protein 5.4 g/dL (6.4-8.2) Albumin 2.9 g/dL (3.4-5.0) Glucose (Fingerstick) 161 mg/dL (70-99) Blood Urea Nitrogen 36 mg/dL (8-26) Creatinine 1.9 mg/dL (0.7-1.3) Estimated GFR (Cockcroft-Gault) 36.0 Glucose Level 160 mg/dL (70-99) Calcium Level 7.6 mg/dL (8.5-10.1) Test 08/25/21 05:30 08/25/21 08:28 Sodium Level 129 mmol/L (136-145) Potassium Level 3.4 mmol/L (3.5-5.1) Chloride Level 94 mmol/L (98-107) Carbon Dioxide Level 26 mmol/L (21-32) Anion Gap 9 (6-14) Blood Urea Nitrogen 47 mg/dL (8-26) Creatinine 2.8 mg/dL (0.7-1.3) Estimated GFR (Cockcroft-Gault) 23.0 Glucose Level 180 mg/dL (70-99) Calcium Level 7.9 mg/dL (8.5-10.1) Glucose (Fingerstick) 181 mg/dL (70-99) Results All relevant outside records, renal labs, imaging studies, telemetry/EKG's were reviewed. Justicifation of Admission Dx: Justifications for Admission: Justification of Admission Dx: Yes Acute Renal Failure: 3-Fold Rise in Serum ROSA Prabhakar MD August 25, 2021 09:00
--- NOTE | 2021-08-25 09:17 | PDOC ---
G I PROGRESS NOTE Subjective Appears to be sleeping. Breakfast tray looks untouched. Physical Exam Virtual exam as in isolation for COVID. Jaundiced. Doesn't appear distended. Review of Relevant I have reviewed the following items priyanak (where applicable) has been applied. Labs Laboratory Tests Test 08/23/21 10:59 08/23/21 19:25 08/23/21 19:50 08/24/21 02:25 Glucose (Fingerstick) 220 mg/dL (70-99) 187 mg/dL (70-99) Sodium Level 127 mmol/L (136-145) 129 mmol/L (136-145) Potassium Level 3.2 mmol/L (3.5-5.1) 3.0 mmol/L (3.5-5.1) Chloride Level 89 mmol/L (98-107) 92 mmol/L (98-107) Carbon Dioxide Level 26 mmol/L (21-32) 25 mmol/L (21-32) Anion Gap 12 (6-14) 12 (6-14) Phosphorus Level 3.9 mg/dL (2.6-4.7) 3.3 mg/dL (2.6-4.7) Magnesium Level 2.3 mg/dL (1.8-2.4) 2.2 mg/dL (1.8-2.4) White Blood Count 8.2 x10^3/uL (4.0-11.0) Red Blood Count 3.13 x10^6/uL (4.30-5.70) Hemoglobin 10.6 g/dL (13.0-17.5) Hematocrit 30.7 % (39.0-53.0) Mean Corpuscular Volume 98 fL (79-100) Mean Corpuscular Hemoglobin 34 pg (25-35) Mean Corpuscular Hemoglobin Concent 35 g/dL (31-37) Red Cell Distribution Width 16.7 % (11.5-14.5) Platelet Count 81 x10^3/uL (140-400) Blood Urea Nitrogen 53 mg/dL (8-26) Creatinine 2.3 mg/dL (0.7-1.3) Estimated GFR (Cockcroft-Gault) 28.9 Glucose Level 165 mg/dL (70-99) Calcium Level 7.6 mg/dL (8.5-10.1) Test 08/24/21 08:14 08/24/21 09:00 08/24/21 10:14 08/24/21 10:38 Glucose (Fingerstick) 151 mg/dL (70-99) 161 mg/dL (70-99) Sodium Level 133 mmol/L (136-145) Potassium Level 3.1 mmol/L (3.5-5.1) Chloride Level 94 mmol/L (98-107) Carbon Dioxide Level 26 mmol/L (21-32) Anion Gap 13 (6-14) Phosphorus Level 3.0 mg/dL (2.6-4.7) Magnesium Level 2.0 mg/dL (1.8-2.4) Prothrombin Time 24.7 SEC (11.7-14.0) Prothromb Time International Ratio 2.3 (0.8-1.1) Total Bilirubin 11.1 mg/dL (0.2-1.0) Direct Bilirubin 7.1 mg/dL (0.0-0.2) Aspartate Amino Transf (AST/SGOT) 382 U/L (15-37) Alanine Aminotransferase (ALT/SGPT) 464 U/L (16-63) Alkaline Phosphatase 123 U/L (46-116) Total Protein 5.4 g/dL (6.4-8.2) Albumin 2.9 g/dL (3.4-5.0) Test 08/24/21 15:00 08/25/21 05:30 08/25/21 08:28 Sodium Level 131 mmol/L (136-145) 129 mmol/L (136-145) Potassium Level 3.2 mmol/L (3.5-5.1) 3.4 mmol/L (3.5-5.1) Chloride Level 94 mmol/L (98-107) 94 mmol/L (98-107) Carbon Dioxide Level 25 mmol/L (21-32) 26 mmol/L (21-32) Anion Gap 12 (6-14) 9 (6-14) Blood Urea Nitrogen 36 mg/dL (8-26) 47 mg/dL (8-26) Creatinine 1.9 mg/dL (0.7-1.3) 2.8 mg/dL (0.7-1.3) Estimated GFR (Cockcroft-Gault) 36.0 23.0 Glucose Level 160 mg/dL (70-99) 180 mg/dL (70-99) Calcium Level 7.6 mg/dL (8.5-10.1) 7.9 mg/dL (8.5-10.1) Phosphorus Level 2.9 mg/dL (2.6-4.7) Magnesium Level 2.1 mg/dL (1.8-2.4) Glucose (Fingerstick) 181 mg/dL (70-99) Laboratory Tests Test 08/24/21 10:14 08/24/21 10:38 08/24/21 15:00 08/25/21 05:30 Prothrombin Time 24.7 SEC (11.7-14.0) Prothromb Time International Ratio 2.3 (0.8-1.1) Total Bilirubin 11.1 mg/dL (0.2-1.0) Direct Bilirubin 7.1 mg/dL (0.0-0.2) Aspartate Amino Transf (AST/SGOT) 382 U/L (15-37) Alanine Aminotransferase (ALT/SGPT) 464 U/L (16-63) Alkaline Phosphatase 123 U/L (46-116) Total Protein 5.4 g/dL (6.4-8.2) Albumin 2.9 g/dL (3.4-5.0) Glucose (Fingerstick) 161 mg/dL (70-99) Sodium Level 131 mmol/L (136-145) 129 mmol/L (136-145) Potassium Level 3.2 mmol/L (3.5-5.1) 3.4 mmol/L (3.5-5.1) Chloride Level 94 mmol/L (98-107) 94 mmol/L (98-107) Carbon Dioxide Level 25 mmol/L (21-32) 26 mmol/L (21-32) Anion Gap 12 (6-14) 9 (6-14) Blood Urea Nitrogen 36 mg/dL (8-26) 47 mg/dL (8-26) Creatinine 1.9 mg/dL (0.7-1.3) 2.8 mg/dL (0.7-1.3) Estimated GFR (Cockcroft-Gault) 36.0 23.0 Glucose Level 160 mg/dL (70-99) 180 mg/dL (70-99) Calcium Level 7.6 mg/dL (8.5-10.1) 7.9 mg/dL (8.5-10.1) Phosphorus Level 2.9 mg/dL (2.6-4.7) Magnesium Level 2.1 mg/dL (1.8-2.4) Test 08/25/21 08:28 Glucose (Fingerstick) 181 mg/dL (70-99) Microbiology 08/22/21 Urine Culture - Final, Complete Vitals/I & O Vital Sign - Last 24 Hours 08/24/21 08/24/21 08/24/21 08/24/21 10:00 11:00 12:00 12:00 Resp 22 21 26 B/P (MAP) 92/58 86/59 74/42 Pulse Ox 92 98 96 O2 Delivery Room Air Room Air Room Air Room Air 08/24/21 08/24/21 08/24/21 08/24/21 13:00 14:13 16:00 17:00 Temp 97.7 97.7 Pulse 102 Resp 18 11 B/P (MAP) 89/56 85/54 85/53 83/55 Pulse Ox 100 100 97 96 O2 Delivery Room Air Room Air Room Air Room Air 08/24/21 08/24/21 08/24/21 08/24/21 18:00 19:00 20:00 20:00 Temp 97.7 97.6 97.7 97.6 Pulse 107 106 109 Resp 24 19 B/P (MAP) 86/53 86/57 92/62 Pulse Ox 99 97 98 O2 Delivery Room Air Room Air Room Air Room Air 08/24/21 08/24/21 08/24/21 08/25/21 21:00 22:00 23:00 00:00 Temp 97.6 97.6 Pulse 107 108 106 107 Resp 15 19 19 19 B/P (MAP) 83/56 91/55 90/55 83/48 Pulse Ox 97 97 94 94 O2 Delivery Room Air Room Air Room Air Room Air 08/25/21 08/25/21 08/25/21 08/25/21 00:00 01:00 02:00 03:00 Pulse 107 108 106 Resp 18 18 19 B/P (MAP) 89/58 86/58 88/72 Pulse Ox 95 93 94 O2 Delivery Room Air Room Air Room Air Room Air 08/25/21 08/25/21 08/25/2108/25/22 04:00 04:00 05:00 06:00 Temp 97.7 97.7 Pulse 106 106 108 Resp 21 18 16 B/P (MAP) 84/64 90/57 92/53 Pulse Ox 94 96 97 O2 Delivery Room Air Room Air Room Air Room Air 08/25/21 08/25/21 08/25/21 08/25/21 07:00 08:00 08:00 09:00 Temp 97.4 97.4 Pulse 105 104 104 Resp 16 25 B/P (MAP) 81/59 96/55 96/55 Pulse Ox 95 96 O2 Delivery Room Air Room Air Room Air Intake and Output 08/24/21 08/24/21 08/25/21 15:00 23:00 07:00 Intake Total 325 ml 625 ml 1249 ml Output Total 67 ml 5 ml 4 ml Balance 258 ml 620 ml 1245 ml Problem List Problems Medical Problems: (1) Acute renal failure Status: Acute (2) Hyperbilirubinemia Status: Acute (3) Hypokalemia Status: Acute (4) Hypotension Status: Acute (5) Lactic acidosis Status: Acute Assessment Jaundice, elevated LFT's. Still believe low cardiac output major culprit. Plan of Care Note Continue support. Ordering EBV, CMV serologies, but don't think we'll have an alternative answer. Justicifation of Admission Dx: Justifications for Admission: Justification of Admission Dx: Yes Acute Renal Failure: 3-Fold Rise in Serum Crea RAYNA FRANK MD August 25, 2021 09:16
--- NOTE | 2021-08-25 09:29 | PDOC ---
JERRI [employer]GER 08/25/21 0929: CARDIO Progress Notes Date and Time Date of Service 08/25/2021 Time of Evaluation 0900 Subjective Subjective: No Chest Pain, No shortness of breath, No Palpitations Vitals Vitals Vital Signs Date Time Temp Pulse Resp B/P (MAP) Pulse Ox O2 Delivery O2 Flow Rate FiO2 08/25/21 09:00 104 96/55 08/25/21 08:00 Room Air 08/25/21 08:00 97.4 25 96 97.4 Weight Weight [ ] Input and Output Intake and Output Intake and Output 08/25/21 07:00 Intake Total 2199 ml Output Total 76 ml Balance 2123 ml Intake Oral 1415 ml IV Total 509 ml Tube Feeding 275 ml Output Urine Total 16 ml Stool Total 60 ml # Bowel Movements 5 Laboratory Labs Laboratory Tests Test 08/24/21 10:14 08/24/21 10:38 08/24/21 15:00 08/25/21 05:30 Prothrombin Time 24.7 SEC (11.7-14.0) Prothromb Time International Ratio 2.3 (0.8-1.1) Total Bilirubin 11.1 mg/dL (0.2-1.0) Direct Bilirubin 7.1 mg/dL (0.0-0.2) Aspartate Amino Transf (AST/SGOT) 382 U/L (15-37) Alanine Aminotransferase (ALT/SGPT) 464 U/L (16-63) Alkaline Phosphatase 123 U/L (46-116) Total Protein 5.4 g/dL (6.4-8.2) Albumin 2.9 g/dL (3.4-5.0) Glucose (Fingerstick) 161 mg/dL (70-99) Sodium Level 131 mmol/L (136-145) 129 mmol/L (136-145) Potassium Level 3.2 mmol/L (3.5-5.1) 3.4 mmol/L (3.5-5.1) Chloride Level 94 mmol/L (98-107) 94 mmol/L (98-107) Carbon Dioxide Level 25 mmol/L (21-32) 26 mmol/L (21-32) Anion Gap 12 (6-14) 9 (6-14) Blood Urea Nitrogen 36 mg/dL (8-26) 47 mg/dL (8-26) Creatinine 1.9 mg/dL (0.7-1.3) 2.8 mg/dL (0.7-1.3) Estimated GFR (Cockcroft-Gault) 36.0 23.0 Glucose Level 160 mg/dL (70-99) 180 mg/dL (70-99) Calcium Level 7.6 mg/dL (8.5-10.1) 7.9 mg/dL (8.5-10.1) Phosphorus Level 2.9 mg/dL (2.6-4.7) Magnesium Level 2.1 mg/dL (1.8-2.4) Test 08/25/21 08:28 Glucose (Fingerstick) 181 mg/dL (70-99) Microbiology Micro Microbiology 08/22/21 Urine Culture - Final, Complete Physical Exam HEENT: Neck Supple W Full Motion Chest: Symmetric LUNGS: Other (diminished bases) Heart: RRR (SR/ST), other (distant heart tones ) Abdomen: Soft N/T, Other (ascites ) Extremities: Other (1+ bilateral LE edema, jaundiced ) Neurology: alert, oriented, follow commands Assessment Assessment 1. Acute on chronic systolic CHF 2. Non-ischemic cardiomyopathy, cardiogenic shock; on milrinone. LVEF down to 10-15% 3. COVID-19 4. CAD s/p PCI/FELICIA to OM/LCx 12/12 5. Severe 6. Diabetes, II 7. Hyperlipidemia 8. JIMY; CRRT in place 9. Hyponatremia, hypokalemia 10. Transaminitis, ascites, jaundice- h/o ETOH abuse sober at least 8 mo. GI following 11. Thrombocytopenia, coagulopathy 12. Cardiohepatorenal syndrome 13. Coagulopathy: INR at 2.3 Recommendations Holding plavix. Continue baby ASA. CBC today and note H/H and PLT Holding statin Pressor support with vasopressin and levophed Continue milrinone. Continue HF optimization CRRT on hold currently awaiting dialysate. per renal Replace K Future TAVR referral No significant progress, critically ill. SS consult [facility] Justicifation of Admission Dx: Justifications for Admission: Justification of Admission Dx: Yes Acute Renal Failure: 3-Fold Rise in Serum Crea JAN HULL MD 08/25/21 1606: CARDIO Progress Notes Assessment Assessment Agree with MILEAGE CLERK's assessment and plan. Patient continues to need pressor support 2D echo showed EF 10-15% with severe aortic stenosis, Continue milrinone infusion for inotropic support CAD status clinically stable Continue CRRT per nephrology team Clinical picture discussed with heart failure team They agreed to accept and transfer patient to for further management. JERRI JUSTICE APRN August 25, 2021 09:29 JAN HULL MD August 25, 2021 16:06
[2021-08-25 10:08] LABS: ALBUMIN 2.7 g/dL (3.4-5.0); CALCIUM 7.9 mg/dL (8.5-10.1); CREATININE 2.8 mg/dL (0.7-1.3); MAGNESIUM 2.1 mg/dL (1.8-2.4); PHOSPHORUS 3.5 mg/dL (2.6-4.7); POTASSIUM 3.4 mmol/L (3.5-5.1); TOTAL BILIRUBIN 13.3 mg/dL (0.2-1.0); TOTAL PROTEIN 5.4 g/dL (6.4-8.2)
[2021-08-25 12:11] LABS: BASO % 0 % (0-3); EOS % 0 % (0-3); HEMATOCRIT 30.6 % (39.0-53.0); HEMOGLOBIN 10.4 g/dL (13.0-17.5); LYMPH % 12 % (24-48); MEAN CORPUSCULAR HEMOGLOBIN 34 pg (25-35); MEAN CORPUSCULAR HGB CONC 34 g/dL (31-37); MEAN CORPUSCULAR VOLUME 100 fL (79-100); MONO # 0.4 x10^3/uL (0.0-1.1); MONO % 5 % (0-9); NEUT # 7.3 x10^3/uL (1.8-7.7); NEUT % 83 % (31-73); PLATELET COUNT 87 x10^3/uL (140-400); RED BLOOD COUNT 3.06 x10^6/uL (4.30-5.70); RED CELL DISTRIBUTION WIDTH 17.3 % (11.5-14.5); WHITE BLOOD COUNT 8.8 x10^3/uL (4.0-11.0)
[2021-08-25] MEDS ORDERED: POTASSIUM CHLORIDE 15 MEQ in DIALYSIS SOLUTION BGK 0/2.5 5,000 ML IV SCH ×3 (12:30)
[2021-08-25] MEDS ORDERED: POTASSIUM CHLORIDE 20MEQ 100 ML IV ONE (13:00)
[2021-08-25 13:10] LABS: % BANDS 6 % (0-9); % LYMPHS 5 % (24-48); % MONOS 2 % (0-10); % SEGS 87 % (35-66); ANISOCYTOSIS SLIGHT; PLT ESTIMATE DECREASED (ADEQUATE)
[2021-08-25] MEDS ORDERED: HEPARIN for SUB-Q USE 5,000 UNIT/ML VIAL. SQ SCH (14:00)
--- NOTE | 2021-08-25 14:20 | NUR ---
SS following up with discharge planning. Cardiology contacted SS and requested transfer to . SS contacted transfer team, , and spoke with Jonathan in the transfer team. Records faxed to [phone]. Currently awaiting acceptance decision. Packet, ambulance form, and transfer form on the chart. Pt's RN notified. SS will continue to follow for discharge planning. Addendum: 08/25/21 at 1648 by CHET KRAMER SS Pt accepted at . Accepting physician Dr. Grijalva. Currently awaiting bed assignment at this time. Pt's RN notified.
--- NOTE | 2021-08-25 16:35 | NUR ---
1315 to 1600-CRRT resumed, patient continues to be unstable while Levo was still running at rate of 0.15 mcg/kg/min at prior to therapy. Patient required rapid titration of Levo d/t sustained MAP <65. Currently, Levo is running at 0.35 mcg/kg/min. Also, patient has Vasopressin running at 0.03 units/min. Will continue to monitor.
[2021-08-25 18:16] LABS: CALCIUM 7.7 mg/dL (8.5-10.1); CREATININE 2.4 mg/dL (0.7-1.3); GFR 27.5; POTASSIUM 3.7 mmol/L (3.5-5.1)
--- NOTE | 2021-08-25 22:00 | NUR ---
Transfer of Care Note CRRT stopped at 1830 per dayshift RN, since patient due to transfer. Patient transferred to [facility] bed [id number]. [facility] transport arrived at 2145 to pick of patient. Report given to Beth Saleh [facility] staff for transport. Per Beth Saleh, [facility] protocol is to take medication pumps for transport and return them at a later date, therefore, patient sent with medication pumps and medications running (levophed, milrinone, vasopressin, NS to TKO). Beth Saleh denied any questions about how the IV pump worked, the medications, or patient condition. All of patient belongings sent with patient including ring and cell phone. No patient belongings left in patient room. Patient Trang called and alerted of patient transfer. Patient new room number and [facility] telephone number given to . Report also called and given to PRATIK Hood RN. All questions answered. Assessments per chart. Medications given per emar. Care handed off.
== END 2021-08-25 22:33 | disposition short-term general hospital (02) | DRG 177 ==
LOC: ER 09:08 → ED HOLD 13:18 → 1 WEST ICU 17:33
PROVIDERS: ADMIT Family Medicine; ATTEND Family Medicine
PROC: 02HV33Z Insertion of Infusion Device into Superior Vena Cava, Percutaneous Approach (ICD-10-PCS; 2021-08-20)
PROC: B548ZZA Ultrasonography of Superior Vena Cava, Guidance (ICD-10-PCS; 2021-08-20)
PROC: 02HV33Z Insertion of Infusion Device into Superior Vena Cava, Percutaneous Approach (ICD-10-PCS; principal; 2021-08-23)
PROC: B548ZZA Ultrasonography of Superior Vena Cava, Guidance (ICD-10-PCS; 2021-08-23)
PROC: 5A1D70Z Performance of Urinary Filtration, Intermittent, Less than 6 Hours Per Day (ICD-10-PCS; 2021-08-23)
PROC: 5A1D70Z Performance of Urinary Filtration, Intermittent, Less than 6 Hours Per Day (ICD-10-PCS; 2021-08-24)
PROC: 5A1D70Z Performance of Urinary Filtration, Intermittent, Less than 6 Hours Per Day (ICD-10-PCS; 2021-08-25)
DX: U07.1 COVID-19 (principal); N17.0 Acute kidney failure with tubular necrosis; I50.43 Acute on chronic combined systolic (congestive) and diastolic (congestive) heart failure; J12.82 Pneumonia due to coronavirus disease 2019; R57.0 Cardiogenic shock; I13.0 Hypertensive heart and chronic kidney disease with heart failure and stage 1 through stage 4 chronic kidney disease, or unspecified chronic kidney disease; B17.9 Acute viral hepatitis, unspecified; D68.9 Coagulation defect, unspecified; E87.1 Hypo-osmolality and hyponatremia; R18.8 Other ascites; I42.8 Other cardiomyopathies; N18.4 Chronic kidney disease, stage 4 (severe); D64.9 Anemia, unspecified; D69.6 Thrombocytopenia, unspecified; E11.22 Type 2 diabetes mellitus with diabetic chronic kidney disease; E78.5 Hyperlipidemia, unspecified; E87.6 Hypokalemia; F17.210 Nicotine dependence, cigarettes, uncomplicated; I25.10 Atherosclerotic heart disease of native coronary artery without angina pectoris; I25.5 Ischemic cardiomyopathy; I35.0 Nonrheumatic aortic (valve) stenosis; I70.0 Atherosclerosis of aorta; I70.8 Atherosclerosis of other arteries; K42.9 Umbilical hernia without obstruction or gangrene; K59.00 Constipation, unspecified; K76.0 Fatty (change of) liver, not elsewhere classified; K82.8 Other specified diseases of gallbladder; K86.89 Other specified diseases of pancreas; M25.78 Osteophyte, vertebrae; M47.816 Spondylosis without myelopathy or radiculopathy, lumbar region; N40.0 Benign prostatic hyperplasia without lower urinary tract symptoms; Z95.5 Presence of coronary angioplasty implant and graft; F10.10 Alcohol abuse, uncomplicated; Z99.2 Dependence on renal dialysis
CPT/HCPCS: 36415; 36556; 71045; 71250; 74176; 76705; 76937; 80048; 80051; 80053; 80076; 80307; 81001; 82140; 82553; 82607; 82962; 83540; 83550; 83605; 83690; 83735; 83880; 83930; 83935; 84100; 84132; 84443; 84484; 84550; 85007; 85025; 85027; 85610; 85730; 86644; 86645; 86664; 86665; 86705; 86706; 86709; 86803; 87086; 87340; 87428; 87493; 93005; 93308; 93976; 96365; 96366; C1892; G0480; J1644; J1815; J1940; J2260; J3480; J3490; J7030; J7060; P9045; P9046; U0003; 99285-25; G0378